=== PATIENT | female | born 1945 | race Caucasian/White ===

== ENCOUNTER 2017-10-21 08:08 | Outpatient (CLI) | payer BC ==
--- NOTE | 2017-10-21 11:00 | CT ---
NECK SOFT TISSUE WITH CONTRAST: CLINICAL HISTORY: Left parotitis, left side otalgia. FINDINGS: The parotid and submandibular glands are symmetric in appearance bilaterally. Portions of each parot id gland are obscured by prominent streak artifact from the oral cavity and dental amalgam. There is no evidence of otomastoid effusion. Imaged orbits are not acute in appearance. There is no acute f luid level within the visualized paranasal sinuses. The nasopharynx and oropharynx are patent. Epig lottis and periepiglottic space are maintaiend. No mass effect to the level of the glottis. Ther is a focal hypodensity in the right thyroid lobe, measuring approximately 11 mm in AP dimension. Asymm etric prominence of the inferior left thyroid lobe, containing a small hypodensity is seen. There is no pathologic enlargement of the regional lymph nodes. There is scattered vascular disease. Incide ntal note of granulomatous calcification. Regional skeletal structures demonstrate degenerative gamez ge. There is degenerative, grade I spondylolisthesis of C4 on 5 and mild retrolisthesis of C5-6. T here is osseous hypertorphy of the proximal body of the sternum which is chronic in appearance. IMPRESSION: 1. There is no acute abnormality. 2. Incidental findings of the thyroid gland, as above. Recommend thyroid ultrasound to further eval uate. POS: MARILYN
[2017-10-21] MEDS ORDERED: Iopamidol 370 76% 100 ML VIAL ONE (16:38)
== END 2017-10-21 08:09 | disposition home or self-care (01) ==
LOC: CT 08:08
PROVIDERS: ATTEND Otolaryngology
DX: H92.02 Otalgia, left ear (principal); R22.1 Localized swelling, mass and lump, neck; K11.21 Acute sialoadenitis
CPT/HCPCS: 36415; 70491; 82565; 84520

== ENCOUNTER 2017-10-31 15:50 | Outpatient (CLI) | payer BC | END 2017-10-31 15:51 | disposition home or self-care (01) | LOC: BICULT 15:50 | PROVIDERS: ATTEND Otolaryngology | DX: E04.1 Nontoxic single thyroid nodule (principal); E04.9 Nontoxic goiter, unspecified; E04.2 Nontoxic multinodular goiter | CPT/HCPCS: 76536 ==

== ENCOUNTER 2017-11-25 08:54 | Outpatient (CLI) | payer BC | END 2017-11-25 08:55 | disposition home or self-care (01) | LOC: BICMRI 08:54 | PROVIDERS: ATTEND Specialist | DX: M47.26 Other spondylosis with radiculopathy, lumbar region (principal); M99.83 Other biomechanical lesions of lumbar region | CPT/HCPCS: 72148 ==

== ENCOUNTER 2018-01-18 08:38 | Outpatient (CLI) | payer BC ==
--- NOTE | 2018-01-18 12:09 | MRI ---
CERVICAL SPINE MRI: 01/18/2018 HISTORY: Cervical spondylosis and myelopathy. Bilateral arm and hand numbness with pain. Bilateral cervical radiculopathy. COMPARISON: None. TECHNIQUE: Multiplanar, multisequence MR imaging of the cervical spine provided without contrast. FINDINGS: There is moderate degenerative change at the atlantoaxial interspace. The craniocervical and cervico thoracic junctions appear intact. At C4-C5, there is anterolisthesis measuring approximately 3 mm. At C5-C6, there is minimal retrolisthesis, measuring in the 2-3 mm range. Sagittal STIR imaging demo nstrates no focal area of osseous marrow edema. C2-C3: Mild facet and uncovertebral osteophyte formation with no significant central canal or neural foraminal stenosis. C3-C4: Minimal disk bulge with no central canal stenosis. No significant neural foraminal stenosis. C4-C5: There is disk space narrowing, disk desiccation, anterior osteophyte formation, and disk bulg e, with partial effacement of the ventral thecal sac and mild central canal stenosis. There is promi nent degenerative change involving the facet joint on the left with fluid within the left facet joint . There is also left uncovertebral osteophyte formation. These findings lead to prominent left neur al foraminal stenosis. No significant central canal or right neural foraminal stenosis. C5-C6: There is disk space narrowing, disk desiccation, anterior osteophyte formation, and disk bulg e, with partial effacement of the ventral thecal sac and mild central canal stenosis. There is promi nent facet and uncovertebral osteophyte formation on the left. There is mild right uncovertebral ost eophyte formation. There is mild right and moderate-severe left neural foraminal stenosis. C6-C7: There is disk space narrowing, disk desiccation, anterior osteophyte formation, and mild disk bulge. There is no significant central canal stenosis. There is bilateral facet and uncovertebral osteophyte formation, right greater than left. There is mild-moderate right neural foraminal stenosi s. No significant left neural foraminal stenosis. C7-T1: Bilateral facet hypertrophy present, left greater than right. There is mild left neural fora aaron stenosis. No significant central canal or right neural foraminal stenosis. There is no focal area of abnormal signal intensity identified within the cervical cord. IMPRESSION: Multilevel degenerative change is noted within the cervical spine, which includes significant left-si ded neural foraminal stenosis at C4-C5 and C5-C6. POS: MARILYN
--- NOTE | 2018-01-18 12:33 | MRI ---
MRI THORACIC SPINE: 01/18/2018 HISTORY: Multiple falls. Bilateral arm and hand numbness with pain. Leg weakness. TECHNIQUE: Multiplanar, multisequence MR imaging of the thoracic spine is provided without contrast. FINDINGS: The sagittal STIR imaging demonstrates no focal area of osseous marrow edema. There is significant d extroscoliosis of the thoracic spine. There is an old burst fracture involving the superior endplate of the T12 vertebral body, with mild r etropulsion, similar when compared to a chest CT performed on 08/21/2015. T1-T2: Disk space narrowing and disk desiccation. No central canal or neural foraminal stenosis. T2-T3: Disk space narrowing with no significant central canal or neural foraminal stenosis. T3-T4: Mild bilateral facet hypertrophy. Disk space narrowing and minimal disk bulge with no centra l canal or neural foraminal stenosis. T4-T5: No significant central canal or neural foraminal stenosis. T5-T6: There is a small left paracentral disk protrusion. There is no significant central canal or neural foraminal stenosis. T6-T7: Bilateral facet hypertrophy noted with mild neural foraminal stenosis on the left. There is a small left paracentral disk protrusion with no associated central canal stenosis. T7-T8: There is bilateral facet hypertrophy with mild bilateral neural foraminal stenosis, left grea ter than right. There is disk space narrowing, disk desiccation, and disk bulge, with central disk p rotrusion causing effacement of the ventral thecal sac and mild central canal stenosis. T8-T9: Disk space narrowing, desiccation, and central disk protrusion effaces the ventral thecal sac with mild central canal stenosis. There is bilateral facet hypertrophy, left greater than right, wi th moderate left neural foraminal stenosis and no significant right neural foraminal stenosis. T9-T10: Bilateral facet hypertrophy. Disk space narrowing and mild disk bulge. No significant cent ral canal stenosis. Mild bilateral neural foraminal stenosis, left greater than right. T10-T11: There is disk space narrowing and disk desiccation with bilateral facet hypertrophy, left g reater than right, and mild bilateral neural foraminal stenosis, left greater than right. T11-T12: Bilateral facet hypertrophy. Disk space narrowing, disk desiccation, and anterior osteophy te formation with no significant central canal or neural foraminal stenosis. T12-L1: No significant central canal or neural foraminal stenosis. There is no focal area of abnormal signal intensity identified within the thoracic cord. IMPRESSION: Multilevel degenerative change within the thoracic spine, as described above, most prominent at T7-T8 and T8-T9, accentuated by significant dextroscoliosis of the mid thoracic spine. POS: LILLY
== END 2018-01-18 08:39 | disposition home or self-care (01) ==
LOC: TBSIIMAG 08:38
PROVIDERS: ATTEND Neurological Surgery
DX: M47.12 Other spondylosis with myelopathy, cervical region (principal); M54.6 Pain in thoracic spine; M47.894 Other spondylosis, thoracic region; M41.9 Scoliosis, unspecified; M99.81 Other biomechanical lesions of cervical region
CPT/HCPCS: 72141; 72146

== ENCOUNTER 2018-02-21 11:07 | Outpatient (CLI) | payer BC ==
[2018-02-21 12:43] LABS: Hemoglobin 12.7 g/dL (12.0-16.0); Mean Corpuscular Hemoglobin 30.9 pg (27.0-31.0); Mean Corpuscular Volume 96.7 fl (81.0-99.0); Mean Platelet Volume 6.9 fL (7.4-10.4); Platelet Count 303 thou/uL (130-400); RBC Distribution Width 15.6 % (11.5-14.5); Red Blood Cell (RBC) Count 4.12 mill/uL (4.20-5.40); White Blood Cell (WBC) Count 11.8 thou/uL (4.8-10.8)
[2018-02-21 12:59] LABS: Anion Gap 13 mmol/L (10-20); BUN (Urea Nitrogen) 14 mg/dL (9.8-20.1); Calc. Creatinine Clearance 0 mL/min (70-130); Calcium 10.3 mg/dL (7.8-10.44); Carbon Dioxide 29 mmol/L (23-31); Chloride 100 mmol/L (98-107); Estimated GFR-MDRD 70; Glucose 141 mg/dL (80-115); Potassium 4.4 mmol/L (3.5-5.1); Sodium 138 mmol/L (136-145)
--- NOTE | 2018-02-21 23:50 | EKG ---
Test Reason : Blood Pressure : / mmHG Vent. Rate : 074 BPM Atrial Rate : 074 BPM P-R Int : 150 ms QRS Dur : 074 ms QT Int : 392 ms P-R-T Axes : 052 011 047 degrees QTc Int : 435 ms Normal sinus rhythm Normal ECG When compared with ECG of 22-OCT-2014 13:11, No significant change was found Confirmed by LIANG RUGGIERO, DR. Vera ([id number]) on 02/21/2018 11:50:19 PM Referred By: EMILE Confirmed By:DR. Jody TAVERA MD
== END 2018-02-21 11:08 | disposition home or self-care (01) ==
LOC: LABBT 11:07
PROVIDERS: ATTEND Neurological Surgery
DX: Z01.818 Encounter for other preprocedural examination (principal); M54.12 Radiculopathy, cervical region
CPT/HCPCS: 80048; 85027; 93005; 93010

== ENCOUNTER 2018-03-01 06:15 | Inpatient (IN) | payer BC, MEDICARE ==
[2018-03-01] MEDS ORDERED: Sodium Chloride 0.9% 10 ML ONE (06:24)
[2018-03-01] MEDS ORDERED: Thrombin 5000 UNITS/5 ML VIAL ONE (06:25)
[2018-03-01] MEDS ORDERED: Clindamycin/D5W 900 mg/50 ml Premix Bag ONE (07:01)
[2018-03-01] MEDS ORDERED: Levofloxacin 500 mg/D5W 100 ml Premix Bag ONE (07:02)
[2018-03-01] MEDS ORDERED: Midazolam HCl 2 mg/2 ml Vial ONE (07:15)
[2018-03-01] MEDS ORDERED: Fentanyl 100 MCG/2 ML VIAL ONE ×3 (07:47→09:21)
[2018-03-01] MEDS ORDERED: Promethazine HCl 25 MG/ML VIAL IM PRN ×2 (08:45→10:09)
[2018-03-01] MEDS ORDERED: Promethazine HCl 25 MG/ML VIAL SLOW IVP PRN (08:45)
[2018-03-01] MEDS ORDERED: Ondansetron HCl/PF 4 MG/2 ML Vial IVP PRN ×2 (08:45→10:09)
--- NOTE | 2018-03-01 09:23 | OP ---
DATE OF PROCEDURE: 03/01/2018 SURGEON: Bryan Chris M.D. NEUROCRITICAL CARE PHYSICIAN: Estephania Rascon PROCEDURE: Anterior cervical discectomy C4-5, C5-6 and C6-7, interbody arthrodesis, intravertebral b iomechanical device, local morselized autograft, demineralized bone matrix, anterior titanium instrum entation C4-C7. PROCEDURE IN DETAIL: The patient was brought to the operating room and intubated. She was positione d supine in modest extension on a gel-filled donut. Incision was made in the right precervical area and dissecting medial to the sternocleidomastoid muscle, identified the anterior cervical spine and o ur level was confirmed by x-ray. We debrided anterior osteophytes, placed distraction across the dis c spaces, and completely decompressed the intravertebral disks at each affected level. The bone was found to be extremely soft. The bony endplates were decorticated for the purpose of arthrodesis and appropriately sized intravertebral biomechanical PEEK device was brought into the field, filled with demineralized bone matrix, local morselized autograft, and tapped into place securely at C4-5, C5-6 a nd C6-7. Next, an anterior plate was brought in the field and secured to C5, C6, and C7 using two 14 mm screws at each level. The wound was then extensively irrigated, immaculate hemostasis was secure d. The wound was closed in anatomic layers over a drain.
[2018-03-01] MEDS ORDERED: traMADol HCl 50 MG TAB PO PRN ×2 (10:09)
[2018-03-01] MEDS ORDERED: diphenhydrAMINE 50 MG/ML VIAL IVP PRN (10:09)
[2018-03-01] MEDS ORDERED: Promethazine HCl 12.5 MG SUPP PR PRN (10:09)
[2018-03-01] MEDS ORDERED: Morphine 4 MG/ML Carpuject SLOW IVP PRN (10:09)
[2018-03-01] MEDS ORDERED: Mag-Al 1200 mg/1200 mg/30 ML UDCUP PO PRN (10:09)
[2018-03-01] MEDS ORDERED: Promethazine 25 MG TAB PO PRN (10:09)
[2018-03-01] MEDS ORDERED: HYDROcodone/Acetaminophen 10/325 mg Tablet PO PRN ×2 (10:09→14:29)
[2018-03-01] MEDS ORDERED: Milk Of Magnesia 30 ML UDCUP PO PRN (10:09)
[2018-03-01] MEDS ORDERED: diphenhydrAMINE 25 MG CAP PO PRN (10:09)
[2018-03-01 10:31] VITALS: BMI 32.9
[2018-03-01] MEDS: Sodium Chloride 0.9% 1,000 ML IV SCH ×2 (11:03→23:39)
[2018-03-01] MEDS: HYDROcodone/Acetaminophen 10/325 mg Tablet PO PRN ×2 (11:06→21:01)
[2018-03-01] MEDS: tiZANidine HCl 4 MG TAB PO PRN (11:08)
[2018-03-01] MEDS ORDERED: Hydrocortisone Sod Succ/PF 100 mg/2 ml Vial ONE (14:20)
[2018-03-01] MEDS ORDERED: PROPOFOL 200 MG/20 ML VIAL ONE (14:20)
[2018-03-01] MEDS ORDERED: Dexamethasone 20 MG/5 ML VIAL ONE (14:20)
[2018-03-01] MEDS ORDERED: Glycopyrrolate 0.2 MG/ML 5 ML SYRINGE ONE (14:20)
[2018-03-01] MEDS ORDERED: Ondansetron HCl/PF 4 MG/2 ML Vial ONE (14:20)
[2018-03-01] MEDS ORDERED: Lidocaine 1% PF 5 ML VIAL ONE (14:20)
[2018-03-01] MEDS: Clindamycin/D5W 900 MG in Premix Bag 1 BAG IVPB SCH ×2 (14:52→21:04)
--- NOTE | 2018-03-01 16:04 | CON ---
DATE OF CONSULTATION: 03/01/2018 PRIMARY CARE PHYSICIAN: Dr. Mike Bonilla. PRIMARY ATTENDING: Bryan Chris M.D. REASON FOR CONSULTATION: Medical comanagement. HISTORY OF PRESENT ILLNESS: A 72-year-old female who has cervical spondylolysis. She is admitted under neurosurgeon for anterior cervical foraminectomy C4-C7, which was done by Dr. Chris earlier today. Postoperatively, patient has mild neck pain and she is feeling spasm in her neck. She does have drain in place. Patient denies any UTI symptoms. She denies any chest pain, palpitation, shortness of breath. She denies any constipation, diarrhea, melena or hematochezia. She has underlying history of adrenal insufficiency and patient is taking prednisone. The patient is also taking methotrexate and Reclast injection, but patient stopped taking those medication for the last 2 weeks including Remicade. REVIEW OF SYSTEMS: The following complete review of systems was negative, unless otherwise mentioned in the HPI or below: Constitutional: Weight loss or gain, ability to conduct usual activities. Skin: Rash, itching. Eyes: Double vision, pain. ENT/Mouth: Nose bleeding, neck stiffness, pain, tenderness. Cardiovascular: Palpitations, dyspnea on exertion, orthopnea. Respiratory: Shortness of breath, wheezing, cough, hemoptysis, fever or night sweats. Gastrointestinal: Poor appetite, abdominal pain, heartburn, nausea, vomiting, constipation, or diarrhea. Genitourinary: Urgency, frequency, dysuria, nocturia. Musculoskeletal: Pain, swelling. Neurologic/Psychiatric: Anxiety, depression. Allergy/Immunologic: Skin rash, bleeding tendency. Please see my HPI for pertinent positive and negative. All other review of systems reviewed and negative except as mentioned in the HPI. PAST MEDICAL HISTORY: Adrenal insufficiency, mitral valve prolapse, diabetes type 2, hypertension, dyslipidemia, cervical spondylosis, obstructive sleep apnea on CPAP. PAST SURGICAL HISTORY: Bladder repair x2, vaginal wall repair, appendicectomy, cholecystectomy, hysterectomy, left knee replacement, bilateral shoulder surgery , right hip replacement, lumbar spine surgery, tonsillectomy, status post anterior cervical foraminectomy. PAST PSYCHIATRIC HISTORY: Anxiety and depression. SOCIAL HISTORY: Patient is and lives at home with her . No history of tobacco, alcohol or illicit drug abuse. FAMILY HISTORY: No strong family history of CAD, CVA or cancer. CURRENT HOME MEDICATIONS: Amlodipine 10 mg daily, aspirin 162 mg p.o. b.i.d., calcium carbonate 500 mg p.o. daily, clonidine 0.1 mg p.o. at bedtime, Cymbalta 60 mg p.o. at bedtime, Prozac 40 mg p.o. daily, folic acid 1 mg p.o. daily, [place] 10 one tablet q.6 hourly p.r.n., Remicade 500 mg IV as directed, Lantus insulin 20 units subcu at bedtime, magnesium oxide 250 mg daily, metformin 500 mg p.o. b.i.d., methotrexate 25 mg every week, omeprazole 20 mg p.o. daily, pravastatin 40 mg p.o. at bedtime, prednisone 20 mg p.o. daily in the morning, 10 mg in afternoon and 10 mg at bedtime, tramadol 100 mg p.o. daily, valsartan 320 mg p.o. at bedtime, and Reclast injection every week. ALLERGIES: MONOSODIUM GLUTAMATE, SULFA DRUGS, IODINE and IODINATED product. PHYSICAL EXAMINATION: VITAL SIGNS: Currently, temperature 97.6, pulse 67, respiratory rate 16, saturation 96% on 2 liters oxygen, blood pressure 147/78, 191 pounds. GENERAL: The patient is currently alert, awake, no obvious acute distress. HEAD: Normocephalic, atraumatic. EYES: Pupils round, reactive to light. Extraocular muscle intact. ENT: Oropharynx within normal limits. Moist mucous membranes. No oral lesion , no pharyngeal erythema, no exudate. NECK: Supple. Surgical site is covered with dressing, cervical drain in place. LUNGS: Clear to auscultation without any rhonchi or rales. CARDIAC: S1 and S2 regular. No murmur, no gallop, no rub. ABDOMEN: Soft, bowel sounds present, nontender, nondistended. No organomegaly , no mass, no suprapubic tenderness. BACK: Examination unremarkable, no CVA tenderness. EXTREMITIES: Upper extremity passive movement of all joints are normal. Lower extremities, no edema. Good peripheral pulsation. SKIN: No skin rash. HEMATOLOGICAL SYSTEM: No lymphadenopathy. PSYCHIATRIC: Normal affect. NEUROLOGIC: Nonfocal examination. SIGNIFICANT LABORATORY DATA: CBC: WBC 11.8, hemoglobin 12.7, platelet 303. INR 1.0. BMP: Sodium 138, potassium 4.2, chloride 100, carbon dioxide 29, BUN 14, creatinine 0.81. Glucose 141, calcium 10.3. Urinalysis unremarkable. ASSESSMENT AND PLAN/IMPRESSION: 1. Cervical spondylosis status post anterior cervical foraminectomy by Dr. Chris. Management will defer to primary team. The patient has drain, most likely drain will be removed tomorrow. PT, OT after surgery as per protocol. 2. Adrenal insufficiency. We will resume prednisone 20 mg in the morning, 10 mg in afternoon and 10 mg at bedtime as per her home dosage. 3. Diabetes type 2. Continue Levemir insulin 20 units subcu at bedtime, metformin 500 mg p.o. b.i.d., and insulin as per sliding scale protocol. Diabetic diet will be given. 4. Hypertension. If blood pressure permits, then we will continue clonidine 0.1 mg p.o. at bedtime, valsartan 320 mg p.o. at bedtime and amlodipine 10 mg daily. We will hold antihypertensive medication if her systolic blood pressure less than 130. 5. Gastroesophageal reflux disease. We will continue Protonix 40 mg p.o. daily. 6. Anxiety and depression. Continue Cymbalta 60 mg p.o. at bedtime and Prozac 40 mg p.o. daily. 7. Obstructive sleep apnea. Patient can use her home CPAP machine while in hospital. 8. Obesity with body mass index 33. Dietary education given, weight loss education given. Healthy lifestyle measures discussed with the patient. 9. Deep venous thrombosis prophylaxis, only sequential compression device boots. No Lovenox because of cervical spine surgery. 10. Gastrointestinal prophylaxis, Protonix 40 mg p.o. daily. CODE STATUS: The patient is FULL CODE. Patient's is surrogate decision maker. Disposition plan based on clinical course. Thank you for the consult. We will follow up with you while in hospital. JULIANO
[2018-03-01] MEDS: metFORMIN 500 MG TAB PO SCH (16:41)
[2018-03-01] MEDS: predniSONE 5 MG TAB PO SCH (16:42)
[2018-03-01] MEDS ORDERED: predniSONE 5 MG TAB PO SCH (21:00)
[2018-03-01] MEDS ORDERED: Insulin Glargine 20 UNITS in Pre-Filled Syringe 1 EACH SC SCH (21:00)
[2018-03-01] MEDS ORDERED: Valsartan 80 MG TAB PO SCH (21:00)
[2018-03-01] MEDS ORDERED: DULoxetine 60 MG CAP PO SCH (21:00)
[2018-03-01] MEDS ORDERED: Atorvastatin Calcium 10 MG TAB PO SCH (21:00)
[2018-03-01] MEDS ORDERED: Non-Formulary Item 1 EACH (Insulin Glargine,Hum.Rec.Anlog [Lantus Solostar] 20 UNIT) SC SCH (21:00)
[2018-03-01] MEDS ORDERED: Folic Acid 1 MG TAB PO SCH (21:00)
[2018-03-01] MEDS ORDERED: cloNIDine 0.1 MG TAB PO SCH (21:00)
[2018-03-02] MEDS ORDERED: predniSONE 20 MG TAB PO SCH (08:00)
[2018-03-02] MEDS: metFORMIN 500 MG TAB PO SCH ×2 (08:05→17:03)
[2018-03-02] MEDS ORDERED: Calcium Carbonate 500 MG ChewTAB PO SCH (09:00)
[2018-03-02] MEDS ORDERED: Amlodipine 10 MG TAB PO SCH (09:00)
[2018-03-02] MEDS ORDERED: FLUoxetine HCl 20 MG CAP PO SCH (09:00)
[2018-03-02] MEDS ORDERED: Magnesium Oxide 250 MG TAB PO SCH (09:00)
[2018-03-02] MEDS: tiZANidine HCl 4 MG TAB PO PRN ×2 (09:20→17:02)
--- NOTE | 2018-03-02 10:36 | PDOC.PN ---
- Subjective Encounter Start Date: 03/02/18 Encounter Start Time: 08:30 -: old records requested/rev Patient seen and examined. No new complaints. No overnight events - Objective Resuscitation Status: Resuscitation Status FULL:Full Resuscitation MAR Reviewed: Yes Vital Signs & Weight: Vital Signs (12 hours) Temp Pulse Resp BP BP Pulse Ox 03/02/18 08:06 63 132/79 03/02/18 07:35 98.1 F 63 18 132/79 95 03/02/18 04:07 97.6 F 68 16 144/76 H 93 L 03/01/18 23:58 98.1 F 76 20 154/85 H 97 Weight Weight 191 lb 12.835 oz I&O: 03/01/18 03/02/18 03/03/18 06:59 06:59 06:59 Intake Total 52 50 Output Total 90 Balance -38 50 Additional Labs: Accuchecks 03/02/18 03/01/18 06:21 20:51 POC Glucose 222 H 197 H Phys Exam - Physical Examination Constitutional: NAD HEENT: PERRLA, moist MMs, sclera anicteric Neck: no JVD, supple surgery site with dressing, drain in place Respiratory: no wheezing, no rales, no rhonchi Cardiovascular: RRR, no significant murmur, no rub Gastrointestinal: soft, non-tender, no distention, positive bowel sounds Musculoskeletal: no edema, pulses present Neurological: non-focal, normal sensation, moves all 4 limbs Lymphatic: no nodes Psychiatric: normal affect, A&O x 3 Skin: no rash, normal turgor Dx/Plan (1) Status post cervical discectomy Code(s): Z98.890 - OTHER SPECIFIED POSTPROCEDURAL STATES Status: Acute (2) Adrenal insufficiency ([place]'s disease) Code(s): E27.1 - PRIMARY ADRENOCORTICAL INSUFFICIENCY Status: Chronic (3) Anxiety and depression Code(s): F41.9 - ANXIETY DISORDER, UNSPECIFIED; F32.9 - MAJOR DEPRESSIVE DISORDER, SINGLE EPISODE, UNSPECIFIED Status: Chronic (4) Diabetes type 2, controlled Code(s): E11.9 - TYPE 2 DIABETES MELLITUS WITHOUT COMPLICATIONS Status: Chronic (5) Dyslipidemia Code(s): E78.5 - HYPERLIPIDEMIA, UNSPECIFIED Status: Chronic (6) GERD (gastroesophageal reflux disease) Code(s): K21.9 - GASTRO-ESOPHAGEAL REFLUX DISEASE WITHOUT ESOPHAGITIS Status: Chronic (7) Hypertension Code(s): I10 - ESSENTIAL (PRIMARY) HYPERTENSION Status: Chronic (8) CHATO on CPAP Code(s): G47.33 - OBSTRUCTIVE SLEEP APNEA (ADULT) (PEDIATRIC); Z99.89 - DEPENDENCE ON OTHER ENABLING MACHINES AND DEVICES Status: Chronic (9) Obesity (BMI 30-39.9) Code(s): E66.9 - OBESITY, UNSPECIFIED Status: Chronic - Plan cont current plan of care, PT/OT * drain will be removed today * possible discharge later today * medication reviewed as below * symptomatic treatment * medically stable * resume home medication on discharge. Review of Systems - Review of Systems Eyes: negative: Pain, Vision Change, Conjunctivae Inflammation, Eyelid Inflammation, Redness, Other ENT: negative: Ear Pain, Ear Discharge, Nose Pain, Nose Discharge, Nose Congestion, Mouth Pain, Mouth Swelling, Throat Pain, Throat Swelling, Other Respiratory: negative: Cough, Dry, Shortness of Breath, Hemoptysis, SOB with Excertion, Pleuritic Pain, Sputum, Wheezing Cardiovascular: negative: chest pain, palpitations, orthopnea, paroxysmal nocturnal dyspnea, edema, light headedness, other Gastrointestinal: negative: Nausea, Vomiting, Abdominal Pain, Diarrhea, Constipation, Melena, Hematochezia, Other Genitourinary: negative: Dysuria, Frequency, Incontinence, Hematuria, Retention , Other Musculoskeletal: negative: Neck Pain, Shoulder Pain, Arm Pain, Back Pain, Hand Pain, Leg Pain, Foot Pain, Other - Medications/Allergies Allergies/Adverse Reactions: Allergies Allergy/AdvReac Type Severity Reaction Status Date / Time monosodium glutamate Allergy Severe CAUSES Verified 02/21/18 12:01 SEVERE MIGRAINES sulfamethoxazole Allergy Severe Hives Verified 02/21/18 11:27 [From Septra] trimethoprim [From Septra] Allergy Severe Hives Verified 02/21/18 11:27 cephalexin monohydrate Allergy Intermediate Rash Verified 02/21/18 11:27 [From Keflex] Iodinated Contrast- Oral and Allergy Intermediate ITCHING, Verified 02/21/18 11: 27 IV Dye SNEEZING, [Iodinated Contrast Media - IV Dye] Medications: Current Medications Hydrocodone Bitart/Acetaminophen (Azalea 10/325) 2 tab PO Q4H PRN PRN Reason: PAIN (4-6) Last Admin: 03/01/18 21:01 Dose: 2 tab Hydrocodone Bitart/Acetaminophen (Azalea 10/325) 1 tab PO Q6H PRN PRN Reason: Mild Pain (1-3) Last Admin: 03/02/18 08:04 Dose: 1 tab Al Hydroxide/Mg Hydroxide (Maalox) 30 ml PO Q4H PRN PRN Reason: Heartburn or Indigestion Amlodipine Besylate (Norvasc) 10 mg PO DAILY [facility] Last Admin: 03/02/18 08:06 Dose: 10 mg Atorvastatin Calcium (Lipitor) 10 mg PO HS [facility] Last Admin: 03/01/18 21:02 Dose: 10 mg Calcium Carbonate (Tums) 500 mg PO DAILY [facility] Last Admin: 03/02/18 08:06 Dose: 500 mg Clonidine (Catapres) 0.1 mg PO [facility] Last Admin: 03/01/18 21:02 Dose: 0.1 mg Diphenhydramine HCl (Benadryl) 25 mg PO Q6H PRN PRN Reason: Itching Diphenhydramine HCl (Benadryl) 25 mg IVP Q6H PRN PRN Reason: Itching Duloxetine HCl (Cymbalta) 60 mg PO [facility] Last Admin: 03/01/18 21:02 Dose: 60 mg Fluoxetine HCl (Prozac) 40 mg PO DAILY [facility] Last Admin: 03/02/18 08:05 Dose: 40 mg Folic Acid (Folvite) 1 mg PO [facility] Last Admin: 03/01/18 21:03 Dose: 1 mg Sodium Chloride (Normal Saline 0.9%) 1,000 mls @ 75 mls/hr IV .[id number] [facility] Last Admin: 03/01/18 23:39 Dose: Not Given Insulin Glargine 20 units/ (Miscellaneous Medication) 0.2 mls @ 0 mls/hr SC [facility] Last Admin: 03/01/18 22:27 Dose: 0.2 mls Magnesium Hydroxide (Milk Of Magnesium) 30 ml PO Q12H PRN PRN Reason: Constipation Magnesium Oxide (Magnesium Oxide) 250 mg PO DAILY [facility] Last Admin: 03/02/18 08:06 Dose: 250 mg Metformin HCl (Glucophage) 500 mg PO BID[facility] Last Admin: 03/02/18 08:05 Dose: 500 mg Morphine Sulfate (Morphine) 2 mg SLOW IVP Q1H PRN PRN Reason: Moderate Breakthrough Pain Morphine Sulfate (Morphine) 4 mg SLOW IVP Q1H PRN PRN Reason: Severe Breakthrough Pain Ondansetron HCl (Zofran) 4 mg IVP Q24H PRN PRN Reason: Nausea/Vomiting Pantoprazole Sodium (Protonix) 40 mg PO DAILY [facility] Last Admin: 03/02/18 08:06 Dose: 40 mg Prednisone (Prednisone) 20 mg PO QAM-WM [facility] Last Admin: 03/02/18 08:06 Dose: 20 mg Prednisone (Prednisone) 10 mg PO 1600 [facility] Last Admin: 03/01/18 16:42 Dose: 10 mg Prednisone (Prednisone) 10 mg PO HS [facility] Last Admin: 03/01/18 21:03 Dose: 10 mg Promethazine HCl (Phenergan) 12.5 mg IM Q4H PRN PRN Reason: Nausea/Vomiting Promethazine HCl (Phenergan) 12.5 mg PO Q4H PRN PRN Reason: Nausea/Vomiting Promethazine HCl (Phenergan Suppository) 12.5 mg [place] Q4H PRN PRN Reason: Nausea/Vomiting Sodium Chloride (Flush - Normal Saline) 10 ml IVF Q12HR [facility] Last Admin: 03/02/18 08:07 Dose: 10 ml Sodium Chloride (Flush - Normal Saline) 10 ml IVF PRN PRN PRN Reason: Saline Flush Tizanidine HCl (Zanaflex) 4 mg PO Q6H PRN PRN Reason: MUSCLE SPASM Last Admin: 03/02/18 09:20 Dose: 4 mg Tramadol HCl (Ultram) 50 mg PO Q6H PRN PRN Reason: PAIN (1-3) Tramadol HCl (Ultram) 100 mg PO Q6H PRN PRN Reason: PAIN (4-6) Valsartan (Diovan) 320 mg PO HS [facility] Last Admin: 03/01/18 21:03 Dose: 320 mg
[2018-03-02] MEDS: HYDROcodone/Acetaminophen 10/325 mg Tablet PO PRN ×2 (12:09→17:02)
[2018-03-02] MEDS: Sodium Chloride 0.9% 1,000 ML IV SCH (12:12)
--- NOTE | 2018-03-02 12:43 | DIS ---
PRIMARY CARE PHYSICIAN: Dr. Mike Bonilla. PRIMARY ATTENDING: Bryan Chris M.D. DATE OF ADMISSION: 03/01/2018 DATE OF DISCHARGE: 03/02/2018 DISCHARGE DISPOSITION: Home. PRIMARY DISCHARGE DIAGNOSIS: Anterior cervical discectomy. SECONDARY DISCHARGE DIAGNOSES: Chronic adrenal insufficiency, anxiety and depression, diabetes type 2, gastroesophageal reflux disease, hypertension, obesity with body mass index 33, obstructive sleep apnea on CPAP. PRIMARY PROCEDURE/OPERATION: Anterior cervical discectomy C4-5, C5-6, C6-7. RADIOLOGICAL INVESTIGATION: None. SIGNIFICANT LABORATORIES: [facility] 111, 197, 222, 192. DISCHARGE MEDICATIONS: Amlodipine 10 mg p.o. daily, calcium carbonate 500 mg p.o. daily, clonidine 0 .1 mg p.o. at bedtime, Cymbalta 60 mg p.o. at bedtime, Prozac 40 mg p.o. daily, folic acid 1 mg p.o. at bedtime, [place] 10 one or two tablets q.6 hourly p.r.n., Remicade 500 mg IV as directed, Lantus 20 units subq at bedtime, magnesium oxide 250 mg p.o. daily, metformin 500 mg p.o. b.i.d., methotrexate 25 mg q.7 days, omeprazole 20 mg p.o. daily, pravastatin 40 mg p.o. at bedtime, prednisone 20 mg in t he morning, 10 mg in afternoon and 10 mg at bedtime, Zanaflex 4 mg q.i.d. p.r.n., tramadol 100 mg p.o . daily, valsartan 320 mg p.o. at bedtime, Ocuvite 2 tablets p.o. daily, Reclast intravenous every mo nth. CONTRAINDICATIONS: None. CODE STATUS: FULL CODE. INPATIENT CONSULTANTS: Dr. Chris was primary. [facility] team was consulted for medical comanagement. TEST RESULTS PENDING ON DISCHARGE: None. ALLERGIES: MONOSODIUM GLUTAMATE, SULFA DRUGS. DISCHARGE PLAN: Post hospital, the patient will follow up with primary care physician as well as Dr. Chris as instructed. HOSPITAL COURSE: A 72-year-old female with above-mentioned medical problem who was electively admitt ed by Dr. Chris for anterior cervical discectomy which was done yesterday without any complication . Patient had a drain at surgical site after surgery. At the surgical floor, [facility] team was consult ed for medical comanagement. We resumed patient's home medication. Patient did very well while in h ospital. She was tolerating p.o. well and she did not have any further problem. Patient will contin ue all her previous medication except aspirin and that can be restarted when neurosurgeon is okay. Patient is seen and examined at bedside today. Please see my consult note for more detail.
[2018-03-02] MEDS: predniSONE 5 MG TAB PO SCH (16:50)
[2018-03-02 17:18] VITALS: BP 146/76; TEMP 98.5
== END 2018-03-02 18:06 | disposition home or self-care (01) | DRG 472 ==
LOC: SDC 06:15 → SURG B 09:10 → OBSVTOIN 09:10 → EDSTATUS 11:15
PROVIDERS: ADMIT Neurological Surgery; ATTEND Neurological Surgery
PROC: 0RG20A0 Fusion of 2 or more Cervical Vertebral Joints with Interbody Fusion Device, Anterior Approach, Anterior Column, Open Approach (ICD-10-PCS; principal; 2018-03-01)
PROC: 0RT30ZZ Resection of Cervical Vertebral Disc, Open Approach (ICD-10-PCS; 2018-03-01)
DX: M47.9 Spondylosis, unspecified (principal); E27.49 Other adrenocortical insufficiency; M54.12 Radiculopathy, cervical region; E11.9 Type 2 diabetes mellitus without complications; G47.33 Obstructive sleep apnea (adult) (pediatric); E66.9 Obesity, unspecified; I34.1 Nonrheumatic mitral (valve) prolapse; K21.9 Gastro-esophageal reflux disease without esophagitis; E78.5 Hyperlipidemia, unspecified; Z68.33 Body mass index [BMI] 33.0-33.9, adult; Z79.899 Other long term (current) drug therapy; Z79.82 Long term (current) use of aspirin; Z79.891 Long term (current) use of opiate analgesic; Z88.8 Allergy status to other drugs, medicaments and biological substances; Z88.2 Allergy status to sulfonamides; Z91.048 Other nonmedicinal substance allergy status; F41.9 Anxiety disorder, unspecified; F32.9 Major depressive disorder, single episode, unspecified
CPT/HCPCS: 36416; 76001; A4216; C1713; C1776; G8978-GP-CJ; G8979-GP-CJ; G8980-GP-CJ; J1100; J1720; J1956; J2001; J2250; J2405; J2704; J3010; J3490; J7506

== ENCOUNTER 2018-03-15 10:40 | Outpatient (CLI) | payer BC ==
--- NOTE | 2018-03-15 11:43 | RAD ---
CERVICAL SPINE SERIES 3 VIEWS: HISTORY: Followup surgery. COMPARISON: Most recent exam available, which was an MRI done 01/18/18, which was before surgery. FINDINGS: The bones are demineralized. The vertebral bodies are normal in height. Anterior cervical fusion ac s been performed with placement of a plate and screws extending from C4 to C7. There are markers of intervening disk implants which are within the confines of the disk level. There is a prominent gap between the plate and anterior margin of the C4 vertebral body of approximately 8 mm. The gap betwee n the posterior margin of the plate and C5 is approximately 6-7 mm. Degenerative facet changes are p resent. IMPRESSION: The patient is status post anterior cervical fusion with findings as discussed above. POS: [facility]
== END 2018-03-15 10:41 | disposition home or self-care (01) ==
LOC: TBSIIMAG 10:40
PROVIDERS: ATTEND Physician Assistant
DX: M47.812 Spondylosis without myelopathy or radiculopathy, cervical region (principal); Z98.1 Arthrodesis status
CPT/HCPCS: 72040

== ENCOUNTER 2018-04-06 14:10 | Outpatient (CLI) | payer BC | END 2018-04-06 14:11 | disposition home or self-care (01) | LOC: BICMAMMO 14:10 | PROVIDERS: ATTEND Obstetrics & Gynecology | DX: Z12.31 Encounter for screening mammogram for malignant neoplasm of breast (principal); Z80.3 Family history of malignant neoplasm of breast | CPT/HCPCS: 77063; 77067 ==

== ENCOUNTER 2018-05-08 15:07 | Outpatient (CLI) | payer BC ==
--- NOTE | 2018-05-08 17:11 | RAD ---
CERVICAL SPINE THREE VIEWS: History: Neck surgery. Follow up. Comparison: 03-15-18 FINDINGS: Anterior fixation plate at the C4-5-6-7 levels again demonstrated. Anterior displacement of the compr ession plate from the anterior margin of the vertebral bodies, up to 0.8 cm, is similar to the previo us exam. There is disc space narrowing and osteophytosis throughout the vertebral bodies and facets. Metallic markers associated with anterior body fusion material at the post-operative levels remain wi thin the confines of the disc spaces. Osseous structures are demineralized. IMPRESSION: Anterior displacement of the cervical spine fixation plate is stable compared to the 03-15-18 exam. POS: [facility]
== END 2018-05-08 15:08 | disposition home or self-care (01) ==
LOC: TBSIIMAG 15:07
PROVIDERS: ATTEND Neurological Surgery
DX: M48.02 Spinal stenosis, cervical region (principal); M50.20 Other cervical disc displacement, unspecified cervical region
CPT/HCPCS: 72040

== ENCOUNTER 2018-05-29 08:50 | Day surgery (SDC) | payer BC ==
[2018-05-26 12:34] VITALS: BMI 30.7
[2018-05-29] MEDS ORDERED: Clindamycin/D5W 900 mg/50 ml Premix Bag ONE (09:53)
[2018-05-29] MEDS ORDERED: Levofloxacin 500 mg/D5W 100 ml Premix Bag ONE (09:53)
[2018-05-29 10:04] LABS: #Eosinphils 0.4 thou/uL (0.0-0.7); #Monocytes 0.8 thou/uL (0.11-0.59); #Neutrophils 9.4 thou/uL (1.40-6.50); %Basophils 0.1 % (0.0-1.0); %Eosinophils 2.9 % (0.0-10.0); %Lymphocytes 15.7 % (21.0-51.0); %Neutrophils 75.3 % (42.0-75.0); Hemoglobin 12.4 g/dL (12.0-16.0); Mean Corpuscular HGB CONC 33.2 g/dL (32.0-36.0); Mean Corpuscular Hemoglobin 29.6 pg (27.0-31.0); Mean Platelet Volume 6.7 fL (7.4-10.4); Platelet Count 287 thou/uL (130-400); RBC Distribution Width 15.4 % (11.5-14.5); Red Blood Cell (RBC) Count 4.19 mill/uL (4.20-5.40); White Blood Cell (WBC) Count 12.5 thou/uL (4.8-10.8)
[2018-05-29] MEDS ORDERED: Hydrocortisone Sod Succ/PF 100 mg/2 ml Vial IVP SCH (10:15)
[2018-05-29 10:27] LABS: Anion Gap 15 mmol/L (10-20); BUN (Urea Nitrogen) 20 mg/dL (9.8-20.1); Calc. Creatinine Clearance 82 mL/min (70-130); Calcium 9.7 mg/dL (7.8-10.44); Carbon Dioxide 26 mmol/L (23-31); Chloride 102 mmol/L (98-107); Estimated GFR-MDRD 66; Glucose 100 mg/dL (80-115); Potassium 3.5 mmol/L (3.5-5.1); Sodium 139 mmol/L (136-145)
[2018-05-29] MEDS ORDERED: Fentanyl 250 MCG/5 ML VIAL ONE (11:47)
[2018-05-29] MEDS ORDERED: Hydrocortisone Sod Succ/PF 100 mg/2 ml Vial ONE (12:01)
--- NOTE | 2018-05-29 13:03 | OP ---
DATE OF PROCEDURE: 05/29/2018 SURGEON: Bryan Chris M.D. UX SPECIALIST: Samantha Porras PA-C PROCEDURE PERFORMED: Left L5 foraminotomy. PROCEDURE IN DETAIL: The patient was brought to the operating room and intubated. She was rolled in the prone position on gel-filled chest rolls. Incision was made exposing left L5 and S1 and our lev el was confirmed by x-ray. We performed complete left L5-S1 facetectomy and performed a complete lef t L5 foraminotomy decompressing left L5 nerve root. The wound was extensively irrigated, immaculate hemostasis was secured. Vancomycin powder was applied and the wound was closed in anatomic layers.
[2018-05-29] MEDS ORDERED: Fentanyl 100 MCG/2 ML VIAL ONE ×2 (13:25→13:51)
[2018-05-29] MEDS ORDERED: Morphine 4 MG/ML VIAL ONE ×2 (13:31→13:47)
[2018-05-29] MEDS ORDERED: HYDROcodone/Acetaminophen 5/325 mg Tablet ONE (14:30)
--- NOTE | 2018-05-29 16:03 | EKG ---
Test Reason : PREOP Blood Pressure : / mmHG Vent. Rate : 072 BPM Atrial Rate : 072 BPM P-R Int : 154 ms QRS Dur : 078 ms QT Int : 402 ms P-R-T Axes : 090 006 032 degrees QTc Int : 440 ms Normal sinus rhythm Normal ECG Confirmed by ROCKY MCPHERSON ([id number]) on 05/29/2018 4:02:59 PM Referred By: EMILE Confirmed By:ROCKY MCPHERSON
== END 2018-05-29 16:20 | disposition home or self-care (01) ==
LOC: SDC 08:50
PROVIDERS: ATTEND Neurological Surgery
PROC: 01NB0ZZ Release Lumbar Nerve, Open Approach (ICD-10-PCS; principal; 2018-05-29)
DX: M48.061 Spinal stenosis, lumbar region without neurogenic claudication (principal); E11.9 Type 2 diabetes mellitus without complications; L40.50 Arthropathic psoriasis, unspecified; Z88.2 Allergy status to sulfonamides; Z88.8 Allergy status to other drugs, medicaments and biological substances; Z91.041 Radiographic dye allergy status; Z79.82 Long term (current) use of aspirin; Z79.899 Other long term (current) drug therapy
CPT/HCPCS: 76001; 80048; 85025; 93005; 93010; 96374; 96375; J1720; J1956; J2270; J3010; J3370; J3490

== ENCOUNTER 2018-08-16 16:06 | Outpatient (CLI) | payer BC ==
--- NOTE | 2018-08-16 18:27 | RAD ---
TWO VIEWS LUMBOSACRAL SPINE: 08/16/18 COMPARISON: Prior exam dated 08/01/18. FINDINGS: There is levoscoliosis of the lumbar spine centered at L3-4. There is slight worsening of the moderat e compression abnormality involving L1 when compared to the prior dated 08/01/18. The mild wedge comp ression abnormality of T12 is stable. There is slight retrolisthesis of L1 on L2 which is stable. Moderate disc degenerative disease at L2- 3 and L5-S1 is stable. Severe multilevel facet osteoarthritic changes are stable. There are bilateral total hip replacement. There are surgical clips within the right upper quadrant consistent with chol ecystectomy. IMPRESSION: 1. Slight worsening loss of height of the moderate to severe compression abnormality at L1. Mild wedge compression abnormality of T12 is stable. 2. Stable severe multilevel spondylosis of lumbar spine. POS: [facility]
--- NOTE | 2018-08-16 18:30 | RAD ---
THORACIC SPINE THREE VIEWS: 08/16/18 HISTORY: Compression fracture. Followup. COMPARISON: 08/01/18. FINDINGS: There are twelve thoracic type vertebrae. Pedicles are intact. Prominent rightward convex rotatory sc oliotic curvature. Compression of the right side of the T12 superior end plate is similar in appearan ce to the previous exam, with loss of height by approximately 15%. L1 compression is also partially v isualized and better detailed on dedicated lumbar spine radiograph. IMPRESSION: 1. Stable radiographic appearance of the T12 superior end plate compression. 2. Prominent degenerative changes thoracic spine. POS: [facility]
== END 2018-08-16 16:07 | disposition home or self-care (01) ==
LOC: TBSIIMAG 16:06
PROVIDERS: ATTEND Neurological Surgery
DX: S22.080D Wedge compression fracture of T11-T12 vertebra, subsequent encounter for fracture with routine healing (principal); M48.56XD Collapsed vertebra, not elsewhere classified, lumbar region, subsequent encounter for fracture with routine healing; M47.814 Spondylosis without myelopathy or radiculopathy, thoracic region; M47.816 Spondylosis without myelopathy or radiculopathy, lumbar region
CPT/HCPCS: 72072; 72100

== ENCOUNTER 2018-09-14 16:12 | Outpatient (CLI) | payer BC ==
--- NOTE | 2018-09-14 16:41 | RAD ---
LUMBAR SPINE 2 VIEWS: Date: 09/14/18 HISTORY: Lumbar spine fracture. COMPARISON: 08/16/18. FINDINGS: Leftward convex curvature is again demonstrated. Pedicles are intact. Burst fracture of L1 is similar in appearance to the previous exam. Disc space narrowing and minimal retrolisthesis of the L2-3 leve l is stable. Osseous structures are demineralized. Osteophytes throughout the facets. IMPRESSION: Stable radiographic appearance of the L2 burst fracture. POS: [facility]
== END 2018-09-14 16:13 | disposition home or self-care (01) ==
LOC: TBSIIMAG 16:12
PROVIDERS: ATTEND Neurological Surgery
DX: S32.021A Stable burst fracture of second lumbar vertebra, initial encounter for closed fracture (principal); M54.5 Low back pain
CPT/HCPCS: 72100

== ENCOUNTER 2018-10-19 15:08 | Outpatient (CLI) | payer BC ==
--- NOTE | 2018-10-19 16:07 | RAD ---
LUMBAR SPINE RADIOGRAPH SERIES TWO TO THREE VIEWS: 10/19/18 INDICATION: S22.0008A. History of vertebral fracture related to fall. COMPARISON: 09/14/18 and 08/16/18 radiograph. FINDINGS: There is prominent S-shaped curvature of the imaged thoracolumbar spine. Multilevel degenerative gamez ge is demonstrated. There is severe height loss of L1 related to anterior compression and mild superi or end plate height loss of T12. When referencing 09/14/18 radiographs, height loss is grossly stable . There is osseous demineralization. No additional significant interval detrimental change. IMPRESSION: Redemonstration of T12 and L1 compression deformities, grossly stable. POS: [facility]
--- NOTE | 2018-10-19 16:36 | RAD ---
CERVICAL SPINE 4 VIEWS: Date: 10/19/17 HISTORY: Neck pain. Prior surgery. COMPARISON: 05/08/18. FINDINGS: Anterior fixation plate of the C4-5-6-7 levels again demonstrated. The space between the anterior asp ect of the involved vertebral bodies and the posterior aspect of the metallic plate is similar in jason earance to the prior study. Metallic markers associated with interbody fusion material at the postope rative levels are within the confines of the disc spaces. Vertebral body heights and alignment are ma intained. Disc space narrowing and osteophytosis is again demonstrated. Osseous structures are demineralized. IMPRESSION: Anterior displacement of the cervical spine fixation plate is stable compared to the previous exams. POS: [facility]
== END 2018-10-19 15:09 | disposition home or self-care (01) ==
LOC: TBSIIMAG 15:08
PROVIDERS: ATTEND Neurological Surgery
DX: S22.008A Other fracture of unspecified thoracic vertebra, initial encounter for closed fracture (principal); M48.56XA Collapsed vertebra, not elsewhere classified, lumbar region, initial encounter for fracture; T84.428A Displacement of other internal orthopedic devices, implants and grafts, initial encounter; M43.8X6 Other specified deforming dorsopathies, lumbar region; M43.8X4 Other specified deforming dorsopathies, thoracic region
CPT/HCPCS: 72040; 72100

== ENCOUNTER 2018-11-17 14:11 | Outpatient (CLI) | payer BC ==
--- NOTE | 2018-11-17 15:44 | MRI ---
MRI OF THE LUMBAR SPINE WITHOUT CONTRAST: 11/17/18 HISTORY: S32.010A - wedge compression fracture first lumbar vertebra. COMPARISON: Lumbar spine from 2007 and lumbar spine radiographs 10/19/18. FINDINGS: The aortic contour is nonaneurysmal. Multiple bilateral renal parapelvic cysts. Mild paraspinal muscu lar atrophy. There is a complete burst fracture of L1 with complete mid vertebral body height loss, 40% anterior height loss, as well as retropulsion of the posterior superior end plates of vertebral b gardenia, reduced spinal canal and approximately 5 mm narrowing of the spinal canal to approximately 8 mm. There is some edema within the vertebral fracture. The height loss is similar to the 10/19/18 radiogr aph. There is also height loss of the T12 anterior superior end plate approximately 15-20%, unchanged . No other fracture is appreciated. Some low grade edema within the right T11 pedicle. This may be st ress related. Levels are as follows: T12-L1: There is effacement of the ventral CSF space due to posterior superior displacement of the fr acture fragment. No significant neural foraminal narrowing. L1-2: Low grade circumferential disc bulge. Mild facet arthropathy. No neural foraminal or spinal can al narrowing. L2-3: Severe degenerative disc space height loss. Circumferential disc bulge. Moderate facet arthrosi s. There is moderate to severe left and moderate right sided neural foraminal narrowing with abutment of the exiting left exiting and traversing nerve roots. Spinal canal measures 9 mm. L3-4: There is a broad based posterior disc bulge. Moderate facet arthrosis. Moderate bilateral neura l foraminal narrowing. L4-5: There is a low grade broad based posterior disc protrusion with a central annular fissure. Mode rate facet arthropathy. Moderate bilateral neural foraminal narrowing. L5-S1: There is a broad based posterior disc protrusion extending to both subforaminal zones. There is hypertrophic facet changes, severe on the left and moderate on the right. Severe left sided neural foraminal narrowing and moderate right sided neural foraminal narrowing with abutment of the left ex iting and traversing nerve roots. IMPRESSION: 1. Advanced multilevel spondylosis as described. 2. Similar height loss of the burst fracture of L1 with retropulsion which is partially healed. 3. There is mild edema within the left T10 pedicle. May be stress related. 4. Chronic anterior superior height loss of T12. 5. Apparent scar along the spinous processes of L4 and L5. POS: [facility]
--- NOTE | 2018-11-17 16:01 | MRI ---
NONCONTRAST MRI OF THE THORACIC SPINE 11/17/18 HISTORY: Wedge compression fracture of T11 and T12. COMPARISON: 01/18/18 FINDINGS: There have been interval postsurgical changes of the cervical spine related to anterior cervical fusi on of C4 through C7. Disc osteophyte complexes are present at these levels which narrow the ventral s ubarachnoid space and appear to result in slight flattening of the anterior aspect of the spinal cord at these levels. Normal signal intensity is demonstrated in the bone marrow. There is a remote burst fracture involvin g the superior end plate of the T12 vertebral body. The burst fracture of the L1 vertebral body is no t well visualized on this exam and is better visualized on MRI of the lumbar spine also obtained on t his date, please see that exam for further details. No additional compression fracture seen involving the thoracic spine. T1-2 level: There is mild disc osteophyte complex resulting in slight effacement of the ventral aspec t of the ventral subarachnoid space. Neural foramina are patent. T2-3 level: There is no significant disc bulge or disc herniation. Central spinal canal and neural fo ramina are patent. T3-4 level: There is mild loss of intervertebral disc height. There is a mild disc osteophyte complex with central disc protrusion. There is slight effacement of the ventral subarachnoid space. Mild enc roachment on the anterior aspect of the spinal cord. Neural foramina are patent. T4-5 level: There is no disc bulge or disc herniation. Central spinal canal and neural foraminal are patent. T5-6 level: Again noted is a small left paracentral disc protrusion at this level which results. Centeno esthela, the central spinal canal and neural foramina are patent. T6-7 level: There is a mild disc osteophyte complex present with small left paracentral disc protrusi on again noted. There is resultant mass effect in the left anterolateral aspect of the ventral subara chnoid space. There is mild narrowing of each neural foramen. T7-8 level: There is loss of intervertebral disc height with facet hypertrophic changes. There is a broad based disc osteophyte complex present. The findings result in mild bilateral neural foraminal n arrowing and there is narrowing of the ventral subarachnoid space with slight mass effect on the ante rior aspect of the spinal cord, but there is normal signal intensity in the spinal cord. This is stab le from prior exam. T8-9 level: Again, there is a disc osteophyte complex with central disc protrusion. This results in n arrowing of the ventral subarachnoid space and flattening of the anterior aspect of the spinal cord, but there is normal signal intensity in the spinal cord. Facet degenerative changes are present and the right neural foramen is patent, but there is suggestion of moderate to severe left sided neural f oraminal narrowing. T9-10 level: There is a mild disc osteophyte complex resulting in slight effacement of the ventral dillon barachnoid space. There are facet hypertrophic changes which do result in mass effect on the left pos terolateral aspect of the subarachnoid space with encroachment on the spinal cord. The right neural f oramen is patent, but there is mild right and moderate to severe left sided neural foraminal narrowi ng. T10-11 level: There are facet hypertrophic changes. There is a disc osteophyte complex present. There is mild narrowing of the central spinal canal. There is moderate left and mild right sided neural fo raminal narrowing. T11-12 level: There is retropulsion of the posterior superior end plate of T12 vertebral body with di sc osteophyte complex present at this level. There are facet degenerative changes. There is narrowing of the ventral subarachnoid space due to retropulsion of fracture fragments. However, there is proba ang mild left sided neural foraminal narrowing. The right neural foramen is patent. There is mild nicky rowing of the central spinal canal. T12-L1 level: There is retropulsion of fracture fragments involving the burst fracture of the L1 vert ebral body which narrows the ventral subarachnoid space. Again, this level is incompletely imaged. Th ere is suggestion of bilateral neural foraminal narrowing, again, please MRI lumbar spine for further details. There is left convexed scoliosis of the lower thoracic spine. IMPRESSION: 1. Stable multilevel degenerative changes in the thoracic spine as described above, greatest at the T7-8 and T8-9 levels with associated dextroscoliosis of the mid to lower thoracic spine. 2. Stable burst fractures involving the T12 and L1 vertebral bodies. POS: [facility]
== END 2018-11-17 14:12 | disposition home or self-care (01) ==
LOC: TBSIIMAG 14:11
PROVIDERS: ATTEND Specialist
DX: S32.010A Wedge compression fracture of first lumbar vertebra, initial encounter for closed fracture (principal); S22.080A Wedge compression fracture of T11-T12 vertebra, initial encounter for closed fracture; M80.88XA Other osteoporosis with current pathological fracture, vertebra(e), initial encounter for fracture; M47.814 Spondylosis without myelopathy or radiculopathy, thoracic region; M41.9 Scoliosis, unspecified; S22.081A Stable burst fracture of T11-T12 vertebra, initial encounter for closed fracture; S32.011A Stable burst fracture of first lumbar vertebra, initial encounter for closed fracture; R60.0 Localized edema; M47.816 Spondylosis without myelopathy or radiculopathy, lumbar region
CPT/HCPCS: 72146; 72148

== ENCOUNTER 2019-02-08 11:39 | Outpatient (CLI) | payer BC ==
--- NOTE | 2019-02-08 12:19 | RAD ---
Exam: 3 views of the lumbosacral spine HISTORY: Wedge compression fracture of L1 COMPARISON: Prior exam dated October 19, 2018 FINDINGS: There are five lumbar type vertebra. There is stable compression abnormalities involving T12 and L1. The moderate to severe multilevel spondylosis of the lumbar spine is stable. Levoscoliosis is stable. There is diffuse osteopenia. There is postsurgical change of a left total hip replacement and cholecystectomy change. IMPRESSION: Stable compression abnormalities at T12 and L1. Stable spondylosis of the lumbar spine.
--- NOTE | 2019-02-08 12:26 | RAD ---
THORACIC SPINE 3 VIEWS: Date: 02/08/19 HISTORY: Wedge compression fracture of T11 and T12. COMPARISON: 08/16/18, lumbar spine 08/16/18. FINDINGS: Stable S-shaped scoliosis of the thoracic vertebral column. Burst fracture of L1 with considerable ve rtical height loss, stable. Mild vertical height loss of T12, stable. Bony demineralization. IMPRESSION: Stable fractures of L1 and T12. Stable scoliosis. POS: [facility]
== END 2019-02-08 11:40 | disposition home or self-care (01) ==
LOC: RAD 11:39
PROVIDERS: ATTEND Nurse Practitioner Family
DX: S32.010D Wedge compression fracture of first lumbar vertebra, subsequent encounter for fracture with routine healing (principal); S22.080D Wedge compression fracture of T11-T12 vertebra, subsequent encounter for fracture with routine healing; M41.9 Scoliosis, unspecified; M47.816 Spondylosis without myelopathy or radiculopathy, lumbar region
CPT/HCPCS: 72072; 72100

== ENCOUNTER 2019-05-21 13:10 | Outpatient (CLI) | payer BC ==
--- NOTE | 2019-05-21 16:27 | BD ---
DEXA BONE DENSITY SCAN: 05/21/2019 HISTORY: Postmenopausal female undergoing screening for osteoporosis. BMD (g/cm2) T-SCORE DISTAL THIRD LEFT FOREARM: 0.363 -1.4 MIDDLE THIRD DISTAL LEFT FOREARM: 0.450 -2.9 PROXIMAL THIRD DISTAL LEFT FOREARM: 0.610 -1.4 TOTAL DISTAL LEFT FOREARM: 0.456 -2.3 DISTAL THIRD RIGHT FOREARM: 0.363 -1.4 MIDDLE THIRD RIGHT FOREARM: 0.526 -1.4 PROXIMAL THIRD RIGHT FOREARM: 0.659 -0.6 TOTAL RIGHT FOREARM: 0.504 -1.4 IMPRESSION: There is osteopenia within the left forearm, correlating with a moderately increased risk for fractur e. Transcribed Date/Time: 05/21/2019 4:40 PM
--- NOTE | 2019-05-22 06:48 | MMO ---
Bilateral MAMMO Bilat Screen [facility]. CLINICAL HISTORY: Patient is 73 years old and is seen for screening. The patient has no family history of breast cancer. The patient has a history of bilateral Excisional Biopsy in 1974 - 1999 - Patient has had 13 biopsies on both breasts. Pre- and bilateral Mastectomy in 1987 - Patient has had partial bilateral mastectomies/lum. VIEWS: The views performed were: bilateral craniocaudal with tomosynthesis and bilateral mediolateral oblique with tomosynthesis. FILMS COMPARED: The present examination has been compared to prior imaging studies performed at [facility] on 03/13/2015, 03/16/2016, 03/17/2017 and 04/06/2018. MAMMOGRAM FINDINGS: There are scattered fibroglandular densities. There are stable benign appearing calcifications seen in both breasts. There are no suspicious masses, suspicious calcifications, or new areas of architectural distortion. IMPRESSION: THERE IS NO MAMMOGRAPHIC EVIDENCE OF MALIGNANCY. A ROUTINE FOLLOW-UP MAMMOGRAM IN 1 YEAR IS RECOMMENDED. THE RESULTS OF THIS EXAM WERE SENT TO THE PATIENT. ACR BI-RADS Category 2 - Benign finding MAMMOGRAPHY NOTE: 1. A negative mammogram report should not delay a biopsy if a dominant of clinically suspicious mass is present. 2. Approximately 10% to 15% of breast cancers are not detected by mammography. 3. Adenosis and dense breasts may obscure an underlying neoplasm. Reported by: HAYLEY MEDINA MD Electonically Signed: [id number]
== END 2019-05-21 13:11 | disposition home or self-care (01) ==
LOC: BICMAMMO 13:10
PROVIDERS: ATTEND Obstetrics & Gynecology
DX: Z12.31 Encounter for screening mammogram for malignant neoplasm of breast (principal); Z13.820 Encounter for screening for osteoporosis; M85.852 Other specified disorders of bone density and structure, left thigh; Z90.13 Acquired absence of bilateral breasts and nipples
CPT/HCPCS: 77063; 77067; 77080

== ENCOUNTER 2019-08-15 16:15 | Emergency (ER) | payer BC, MEDICARE ==
[~2019-08-15 16:15] MED LIST: Iopamidol-370 76% 500 ML 1 ML ONE
[2019-08-15] MEDS ORDERED: methylPREDNISolone Sod Succ/PF 125 MG/2 ML VIAL ONE (16:42)
[2019-08-15] MEDS ORDERED: Famotidine/PF 20 mg/2ml Vial ONE (16:42)
[2019-08-15] MEDS ORDERED: diphenhydrAMINE 50 MG/ML VIAL ONE (16:42)
[2019-08-15 17:08] LABS: #Eosinphils 0.1 thou/uL (0.0-0.7); #Neutrophils 15.4 thou/uL (1.40-6.50); %Basophils 0.1 % (0.0-1.0); %Eosinophils 0.7 % (0.0-10.0); %Lymphocytes 10.8 % (21.0-51.0); %Monocytes 5.5 % (0.0-10.0); Hemoglobin 12.6 g/dL (12.0-16.0); Mean Corpuscular HGB CONC 32.8 g/dL (32.0-36.0); Mean Corpuscular Hemoglobin 29.9 pg (27.0-31.0); Mean Corpuscular Volume 91.1 fL (78.0-98.0); Mean Platelet Volume 7.4 fL (7.4-10.4); Platelet Count 381 thou/uL (130-400); RBC Distribution Width 15.9 % (11.5-14.5); Red Blood Cell (RBC) Count 4.22 mill/uL (4.20-5.40); White Blood Cell (WBC) Count 18.5 thou/uL (4.8-10.8)
[2019-08-15 17:32] LABS: ALT (SGPT) 16 U/L (8-55); AST (SGOT) 11 U/L (5-34); Albumin 3.8 g/dL (3.4-4.8); Alkaline Phosphatase 86 U/L (40-110); Anion Gap 13 mmol/L (10-20); BUN (Urea Nitrogen) 22 mg/dL (9.8-20.1); Bilirubin, Total 0.5 mg/dL (0.2-1.2); Calc. Creatinine Clearance 0 mL/min (70-130); Carbon Dioxide 28 mmol/L (23-31); Chloride 96 mmol/L (98-107); Estimated GFR-MDRD 56; Globulin 2.6 g/dL (2.4-3.5); Glucose 297 mg/dL (83-110); Potassium 3.7 mmol/L (3.5-5.1); Protein, Total 6.4 g/dL (6.0-8.3); Sodium 133 mmol/L (136-145)
--- NOTE | 2019-08-15 18:05 | CT ---
CT arteriogram chest with IV contrast and 3-D imaging HISTORY: Dyspnea. Chest pain. COMPARISON: 08/21/2015. FINDINGS: There is good contrast opacification pulmonary arteries and thoracic aorta with normal bran kev of the great vessels at the aortic arch. Calcification within the coronary arteries. Old healed left anterior rib fractures. Prominent S shaped curvature of the thoracolumbar spine. Chronic appearing compression of an upper jenny mbar vertebral body is partially visualized. At the anterior aspect of the pancreatic body, a new cyst is 1.2 cm greatest diameter. IMPRESSION: No CT evidence of pulmonary embolus. Atherosclerosis. Interval appearance of a 1.2 cm cyst of the pancreas. Please consider CT follow-up in 1-2 years to ev aluate for stability.
== END 2019-08-15 18:30 | disposition home or self-care (01) ==
LOC: ERS 16:15
DX: J20.9 Acute bronchitis, unspecified (principal); E11.9 Type 2 diabetes mellitus without complications; E78.5 Hyperlipidemia, unspecified; E78.00 Pure hypercholesterolemia, unspecified; I10 Essential (primary) hypertension; F32.9 Major depressive disorder, single episode, unspecified; Z79.899 Other long term (current) drug therapy; Z79.82 Long term (current) use of aspirin; Z79.4 Long term (current) use of insulin
CPT/HCPCS: 36415; 71275; 80053; 83880; 84484; 85025; 85379; 93005; 94640; J1200; J2930; J7620; Q9967; S0028

== ENCOUNTER 2019-10-09 11:09 | Outpatient (CLI) | payer MEDICARE, BC ==
--- NOTE | 2019-10-09 11:33 | RAD ---
EXAM: XR Lumbar Spine Min 4 View PROVIDED CLINICAL HISTORY: Back pain COMPARISON: 02/08/2019 FINDINGS: Lateral neutral, flexion lateral, extension lateral and lumbosacral lateral views of the lumbar spine submitted. Compression deformities of L1 and T12 are redemonstrated. Vertebral body heights appear otherwise maintained. There is normal lumbar alignment in the neutral and extended positions. There i s approximately 2 mm of anterolisthesis of L4 on L5 with flexion and trace anterolisthesis of L3 on L4 with flexion. There is prominent disc space height loss and endplate degenerative change at L2-3. Multilevel advanced facet arthritis. IMPRESSION: Lumbar disc and facet degenerative change with anterolisthesis of L3 on L4 and L4 on L5 in flexion.
== END 2019-10-09 11:10 | disposition home or self-care (01) ==
LOC: BICRAD 11:09
PROVIDERS: ATTEND Specialist
DX: M51.16 Intervertebral disc disorders with radiculopathy, lumbar region (principal); M43.16 Spondylolisthesis, lumbar region; M47.26 Other spondylosis with radiculopathy, lumbar region
CPT/HCPCS: 72110

== ENCOUNTER 2019-11-09 12:44 | Outpatient (CLI) | payer MEDICARE, BC ==
--- NOTE | 2019-11-09 15:37 | MRI ---
MRI THORACIC SPINE PERFORMED WITHOUT CONTRAST ENHANCEMENT: Date: 11/09/2019 HISTORY: Back pain. History of falls. Pain extending to left leg. COMPARISON: 11/17/2018 exam. FINDINGS: Vertebral bodies show normal marrow signal change. There is some minimal osteoporotic type cupping to the superior end plate of T12 without any marrow edema change, and also some compression changes inv olving the superior end plate of L1, which is partially visualized on this exam. Scoliotic change to spine, convex to the right, is again noted in the lower thoracic spine region. T5-6: There is a small left paracentral to slightly lateral protrusion at this level, minimally inde nting the thecal sac. T6-7: Some minimal left-sided asymmetry to the disc changes are seen at this level again with minima l indentation of the thecal sac. T7-8: There is a more broad based disc osteophyte complex at this level. This is more central to lef t paracentral, felt to be fairly similar to the previous examination. Perhaps there is a slightly mor e prominent left paracentral component. T8-9: There is a more central disc osteophyte complex at this level, associated with a mild degree o f canal stenosis, similar to the previous exam. T10-11: There is some borderline left sided foraminal narrowing at this level. IMPRESSION: 1. Disc changes which are most pronounced at the T7-T8 and T8-T9 levels as discussed above. 2. Some mild cupping to the superior end plates of T12 and partial visualization of some cupping to the superior end plate of L1 without definite marrow edema change. POS: [facility]
--- NOTE | 2019-11-09 15:40 | MRI ---
MRI OF THE LUMBAR SPINE WITHOUT CONTRAST: 11/09/19 INDICATIONS: Compression fracture at L1. Compared to plain films of the lumbar spine 08/16/18 which demonstrate compression deformity at L1. Compared to MRI lumbar spine dated 11/17/18 which demonstrated a compression deformity at L1. FINDINGS: The compression deformity at L1 is again seen and is unchanged from the prior MRI of 11/17/18. There i s no evidence of edema. The other lumbar vertebrae maintain normal height and alignment. No vertebra l body edema seen. Mild wedging at T12 is stable with degenerative spurring at T11-T12 and T12-L1. There is retropulsion of the posterior cortex of L1 which is similar in appearance to the MRI of 11/17. T11-L1: The retropulsion of the posterior superior cortex of L1 compresses the thecal sac resulting i n mild central anal stenosis. It does impinge on the conus. No interval change from 2019. L1-2: There is a mild diffuse disc bulge flattening the thecal sac. Minimal central canal stenosis. L2-3: Slight posterior listhesis with broad based disc bulge is unchanged in appearance from the prio r MRI. These changes flatten the anterior thecal sac and are associated with facet hypertrophy result ing in mild central canal stenosis which appears stable. The left foraminal stenosis also again noted . L3-4: Broad based disc bulge flattens the thecal sac. Facet hypertrophy and arthrosis. Mild central c anal stenosis is stable. No significant foraminal stenosis. L4-5: Diffuse disc bulge is unchanged from prior exam. Facet hypertrophy. Mild central canal stenosis , unchanged. Left foraminal encroachment is stable. L5-S1: There is a central disc protrusion which was present previously. On today's exam, there is ext ruded disc which shows superior migration along the posterior cortex of L5 slightly to the left of mi dline. This extruded fragment measures 9 mm AP dimension in the axial plane just above the L5-S1 disc space. It compresses the anterior thecal sac on the right and displaces the traversing nerve roots. At the disc space, a broad based protrusion is associated with facet hypertrophy resulting in mild to moderate central canal stenosis and bilateral foraminal stenosis, more severe on the left. There is an asymmetric disc osteophyte bulge to the left. IMPRESSION: 1. New extruded disc with superior migration to the left of midline at L5-S1 as described above. Severe left foraminal stenosis at this level. 2. Compression deformity at L1 is stable. 3. Disc bulges at the other lumbar levels are again seen and appear stable as described. POS: [facility]
== END 2019-11-09 12:45 | disposition home or self-care (01) ==
LOC: TBSIIMAG 12:44
PROVIDERS: ATTEND Nurse Practitioner Family
DX: S32.010A Wedge compression fracture of first lumbar vertebra, initial encounter for closed fracture (principal); S22.080A Wedge compression fracture of T11-T12 vertebra, initial encounter for closed fracture; M48.061 Spinal stenosis, lumbar region without neurogenic claudication; M48.07 Spinal stenosis, lumbosacral region; M51.27 Other intervertebral disc displacement, lumbosacral region; M51.9 Unspecified thoracic, thoracolumbar and lumbosacral intervertebral disc disorder; M43.9 Deforming dorsopathy, unspecified
CPT/HCPCS: 72146; 72148

== ENCOUNTER 2020-04-23 06:27 | Outpatient (CLI) | payer MEDICARE, BC, OTHER ==
[2020-04-23 16:16] LABS: Hemoglobin 13.1 g/dL (12.0-16.0); Mean Corpuscular HGB CONC 32.7 g/dL (32.0-36.0); Mean Corpuscular Hemoglobin 29.3 pg (27.0-31.0); Mean Corpuscular Volume 89.5 fL (78.0-98.0); Platelet Count 380 thou/uL (130-400); RBC Distribution Width 16.3 % (11.5-14.5); Red Blood Cell (RBC) Count 4.47 mill/uL (4.20-5.40); White Blood Cell (WBC) Count 17.6 thou/uL (4.8-10.8)
[2020-04-23 16:23] LABS: Anion Gap 17 mmol/L (10-20); BUN (Urea Nitrogen) 15 mg/dL (9.8-20.1); Calc. Creatinine Clearance 0 mL/min (70-130); Calcium 9.5 mg/dL (7.8-10.44); Carbon Dioxide 26 mmol/L (23-31); Chloride 97 mmol/L (98-107); Estimated GFR-MDRD 66; Glucose 194 mg/dL (83-110); Potassium 3.6 mmol/L (3.5-5.1); Sodium 136 mmol/L (136-145)
[2020-04-24 14:39] LABS: SARS-CoV-2 MS2 Positive; SARS-CoV-2 N Gene Negative; SARS-CoV-2 S Gene Negative; SARS-CoV-2 orf1ab Negative
== END 2020-04-23 06:28 | disposition home or self-care (01) ==
LOC: LABBT 06:27
PROVIDERS: ATTEND Neurological Surgery
DX: Z01.818 Encounter for other preprocedural examination (principal); Z11.59 Encounter for screening for other viral diseases; M54.16 Radiculopathy, lumbar region
CPT/HCPCS: 80048; 85027; 93005; U0003; 87635; 93010

== ENCOUNTER 2020-04-28 06:08 | Observation (INO) | payer MEDICARE, BC ==
[2020-04-21 12:37] VITALS: BMI 28.3
[2020-04-28] MEDS ORDERED: Fentanyl 100 MCG/2 ML VIAL ONE ×4 (06:47→09:40)
[2020-04-28] MEDS ORDERED: Promethazine HCl 25 MG/ML VIAL SLOW IVP PRN (07:15)
[2020-04-28] MEDS ORDERED: Morphine Sulfate 2 MG/ML SYRINGE SLOW IVP PRN (07:15)
[2020-04-28] MEDS ORDERED: Ondansetron HCl/PF 4 MG/2 ML Vial IVP PRN (07:15)
[2020-04-28] MEDS ORDERED: Promethazine HCl 25 MG/ML VIAL IM PRN ×2 (07:15→11:18)
[2020-04-28] MEDS ORDERED: HYDROmorphone 2 MG/ML VIAL SLOW IVP PRN (07:15)
[2020-04-28] MEDS ORDERED: Meperidine HCl/PF 25 MG/ML VIAL SLOW IVP PRN (07:15)
[2020-04-28] MEDS ORDERED: PACU-Morphine 4MG/ML VIAL SLOW IVP PRN (07:15)
[2020-04-28] MEDS ORDERED: Clindamycin/D5W 900 mg/50 ml Premix Bag ONE (07:16)
[2020-04-28] MEDS ORDERED: Levofloxacin 500 mg/D5W 100 ml Premix Bag ONE (07:16)
[2020-04-28] MEDS ORDERED: SUGAMMADEX SODIUM 200 MG/2 ML VIAL ONE (08:45)
--- NOTE | 2020-04-28 09:08 | OP ---
DATE OF PROCEDURE: 04/28/2020 SPRAY I PAINTER: Samantha Porras PA-C PROCEDURES PERFORMED: Left L5-S1 laminectomy, facetectomy, diskectomy, and foraminotomy, posterolateral arthrodesis, pedicle screw instrumentation left L5-S1, demineralized bone matrix, local morselized autograft. DESCRIPTION OF PROCEDURE: The patient was brought to the operating room and intubated. She was rolled in a prone position on gel-filled chest rolls. The previous incision was reopened and extended and the L5-S1 level again identified. We reperformed the left L5-S1 laminectomy and foraminotomy and found the pedicles of left L5 and left S1 to be very close to each other. We then explored the disk space and removed herniated disk at L5-S1. A complete decompression was achieved. We next placed pedicle screws at left L5 and left S1 using lateral fluoroscopic guidance. The bones were found to be quite soft. The kellee was then secured between the screws. Distraction was applied and the screws were all final tightened to the kellee. The wound was then extensively irrigated and MAC hemostasis was secured. A combination of demineralized bone matrix and local morselized autograft was laid over the right lamina on posterolateral surfaces for the purpose of arthrodesis. Vancomycin powder was applied and the wound was then closed in anatomic layers. Job ID: [id number]
[2020-04-28] MEDS ORDERED: EPHEDRINE 25 MG/5 ML SYRINGE ONE (09:31)
[2020-04-28] MEDS ORDERED: Lidocaine 1% PF 5 ML VIAL ONE (09:31)
[2020-04-28] MEDS ORDERED: PHENYLEPHRINE-NS 100 MCG/ML 10 ML SYRINGE ONE (09:31)
[2020-04-28] MEDS ORDERED: Dexamethasone 20 MG/5 ML VIAL ONE (09:31)
[2020-04-28] MEDS ORDERED: Rocuronium Bromide 10 MG/ML (10ML VIAL) ONE (09:31)
[2020-04-28] MEDS ORDERED: PROPOFOL 200 MG/20 ML VIAL ONE (09:31)
[2020-04-28] MEDS ORDERED: Ondansetron PF 4 MG/2 ML Vial ONE (09:31)
[2020-04-28] MEDS ORDERED: Morphine 4 MG/ML VIAL ONE (09:49)
[2020-04-28] MEDS ORDERED: Ondansetron PF 4 MG/2 ML Vial IM PRN (11:18)
[2020-04-28] MEDS ORDERED: diphenhydrAMINE 50 MG/ML VIAL IVP PRN (11:18)
[2020-04-28] MEDS ORDERED: traMADol HCl 50 MG TAB PO PRN ×2 (11:18)
[2020-04-28] MEDS ORDERED: Milk Of Magnesia 30 ML UDCUP PO PRN (11:18)
[2020-04-28] MEDS ORDERED: Mag-Al 1200 mg/1200 mg/30 ML UDCUP PO PRN (11:18)
[2020-04-28] MEDS ORDERED: Promethazine HCl 12.5 MG SUPP PR PRN (11:18)
[2020-04-28] MEDS ORDERED: Promethazine 25 MG TAB PO PRN (11:18)
[2020-04-28] MEDS ORDERED: Bisacodyl 10 MG SUPP PR PRN (11:18)
[2020-04-28] MEDS ORDERED: Morphine 2 MG/ML VIAL SLOW IVP PRN (11:18)
[2020-04-28] MEDS ORDERED: diphenhydrAMINE 25 MG CAP PO PRN (11:18)
[2020-04-28] MEDS ORDERED: Acetaminophen/Codeine 30-300mg Tablet PO PRN (11:18)
[2020-04-28] MEDS ORDERED: cloNIDine 0.1 MG TAB PO PRN (11:39)
[2020-04-28] MEDS ORDERED: HYDROcodone/Acetaminophen 10/325 mg Tablet PO PRN (11:48)
[2020-04-28] MEDS: Sodium Chloride 0.9% 1,000 ML IV SCH (12:38)
[2020-04-28] MEDS: tiZANidine HCl 4 MG TAB PO PRN (12:56)
[2020-04-28] MEDS ORDERED: Dextrose 5% in Water 1,000 ML IV PRN (15:29)
[2020-04-28] MEDS ORDERED: Dextrose 50% Abboject 50 ML SYRINGE SLOW IVP PRN (15:29)
[2020-04-28] MEDS: metFORMIN 500 MG TAB PO SCH (16:38)
[2020-04-28] MEDS: Clindamycin/D5W 900 MG in Premix Bag 1 BAG IVPB SCH ×2 (16:38→23:51)
[2020-04-28] MEDS: predniSONE 5 MG TAB PO SCH (16:39)
[2020-04-28] MEDS: HumaLOG 300 UNITS/3 ML VIAL SC PRN ×2 (17:08→22:07)
[2020-04-28] MEDS ORDERED: Alogliptin 25 MG TAB PO SCH (21:00)
[2020-04-28] MEDS: DULoxetine 60 MG CAP PO SCH (22:05)
[2020-04-28] MEDS: Rosuvastatin 10 MG TAB PO SCH (22:06)
[2020-04-28] MEDS: Folic Acid 1 MG TAB PO SCH (22:06)
[2020-04-28] MEDS: Insulin Glargine 24 UNITS in Pre-Filled Syringe 1 EACH SC SCH (22:06)
[2020-04-29] MEDS: Acetaminophen/Codeine 30-300mg Tablet PO PRN ×4 (00:09→21:05)
[2020-04-29] MEDS: Sodium Chloride 0.9% 1,000 ML IV SCH ×2 (04:01→16:51)
[2020-04-29 05:46] LABS: #Lymphocytes 0.9 thou/uL (1.20-3.40); #Monocytes 1.5 thou/uL (0.11-0.59); %Basophils 0.1 % (0.0-1.0); %Eosinophils 0.3 % (0.0-10.0); %Lymphocytes 6.5 % (21.0-51.0); %Monocytes 10.2 % (0.0-10.0); %Neutrophils 82.9 % (42.0-75.0); Hemoglobin 10.6 g/dL (12.0-16.0); Mean Corpuscular HGB CONC 31.3 g/dL (32.0-36.0); Mean Corpuscular Hemoglobin 28.3 pg (27.0-31.0); Mean Corpuscular Volume 90.4 fL (78.0-98.0); Mean Platelet Volume 7.7 fL (7.4-10.4); Platelet Count 287 thou/uL (130-400); RBC Distribution Width 15.7 % (11.5-14.5); Red Blood Cell (RBC) Count 3.75 mill/uL (4.20-5.40); White Blood Cell (WBC) Count 14.4 thou/uL (4.8-10.8)
[2020-04-29 06:02] LABS: Anion Gap 11 mmol/L (10-20); BUN (Urea Nitrogen) 13 mg/dL (9.8-20.1); Calc. Creatinine Clearance 83 mL/min (70-130); Calcium 8.8 mg/dL (7.8-10.44); Carbon Dioxide 27 mmol/L (23-31); Chloride 104 mmol/L (98-107); Estimated GFR-MDRD 76; Glucose 155 mg/dL (83-110); Potassium 3.9 mmol/L (3.5-5.1); Sodium 138 mmol/L (136-145)
--- NOTE | 2020-04-29 06:21 | PRG ---
DATE OF SERVICE: 04/29/2020 SUBJECTIVE: The patient is postoperative day #1, status post L5-S1 decompression and fusion. Overnight, she was transitioned to the Med/Surg floor, where her pain has been well-controlled with p.o. medications, she is tolerating a regular diet, and she is voiding appropriately. She has not had any incisional issues. She has not done very much walking and has been somewhat slow to mobilize. The patient does have a history of adrenal insufficiency, and we have increased her postoperative steroid dose per Dr. Bonilla's recommendations, and she has been doing well. OBJECTIVE: On exam this morning, vital signs are stable. She is awake, alert, in no acute distress. She has free active range of motion of all extremities. No focal motor weakness. Her incisional dressing is clean and dry. Overall, the patient is doing quite well. She has been somewhat slow to mobilize, so we will have her to work with physical therapy today and continue pain control measures. I anticipate home tomorrow. Job ID: [id number]
--- NOTE | 2020-04-29 06:54 | CON ---
DATE OF CONSULTATION: PRIMARY CARE PHYSICIAN: Dr. Bonilla. CHIEF COMPLAINT: Decompression and fusion at L5 through S1. HISTORY OF PRESENT ILLNESS: The patient is a very pleasant 74-year-old female with past medical history significant for diabetes type 2, diabetes insipidus, adrenal insufficiency, who was admitted for an elective decompression and fusion at L5 through S1. The patient had her surgery today on April 28, 2020. We have been consulted for her medical management. PAST MEDICAL HISTORY: Psoriatic arthritis, diabetes mellitus type 2, diabetes insipidus, adrenal insufficiency, hyperlipidemia, and hypertension. PAST SURGICAL HISTORY: Multiple breast biopsies, bladder repair, hysterectomy, cholecystectomy, appendectomy, left hip surgery, and tonsillectomy. ALLERGIES: CODEINE, KEFLEX, AND SULFA. MEDICATIONS: 1. Fluoxetine 40 mg. 2. Cymbalta 60 mg. 3. Vitamin D3 2000 units. 4. Aspirin 81 mg. 5. Lisinopril 40 mg p.o. b.i.d. 6. Folvite 1 mg. 7. Prilosec 20 mg. 8. Methotrexate 25 mg IM q.7 days. 9. Magnesium 300 mg. 10. Tramadol 100 mg. 11. Metformin 500 mg p.o. b.i.d. 12. Januvia 100 mg at night. 13. Rosuvastatin calcium 10 mg. 14. Lantus 24 units at night. 15. Prednisone 10 mg twice a day. SOCIAL HISTORY: The patient lives at home with her . She denies any alcohol, drug or tobacco use. FAMILY HISTORY: Noncontributory to this case. REVIEW OF SYSTEMS: All other review of systems are negative unless noted in HPI. PHYSICAL EXAMINATION: VITAL SIGNS: Temperature 98.0 orally, pulse 105, respiratory rate 18, O2 saturation 95% on room air, and blood pressure 128/92. CONSTITUTIONAL: The patient appears nontoxic and pain-free. HEENT: Head; atraumatic, normocephalic. Eyes; PERRLA, extraocular muscles intact. NECK: Normal range of motion. No lymphadenopathy. RESPIRATORY: Clear to auscultation bilaterally. Normal chest rise, symmetrical. No rhonchi. No wheezes. No rales. CARDIOVASCULAR: Regular rate and rhythm. No murmurs. No rubs. No gallops. ABDOMEN: Nontender. Normal bowel sounds. No distention. No masses. BACK: Lower back incision from surgery. EXTREMITIES: Lower extremities, posterior tibial pulse and pedal pulse present. No cyanosis. No clubbing. No edema. NEUROLOGIC: Alert and oriented x3. No focal motor deficits. No focal sensory deficits. PSYCHIATRIC: Normal affect. Normal behavior. LABS/IMAGING: Glucose 156 this morning. EKG shows sinus tach, no ectopic beats , 108 beats per minute. IMPRESSION AND PLAN: 1. Diabetes mellitus type 2. Home medications have been reconciled and restarted. Accu-Cheks and sliding scale insulin have now been ordered along with the diet changed to a diabetic diet. We will continue to monitor the patient's blood sugars before meals and at bedtime, especially with increase of steroid that she is currently receiving. 2. Acute blood loss with the surgery. We will monitor the patient's labs in the morning. The patient is faring well at this time with no complaints. 3. Hypertension. Stable at this time. We will monitor the patient's blood pressures. Home medications have been reconciled and restarted, we can add a p.r.n. antihypertensive if necessary. 4. Acute pain. P.r.n. pain medications are available and also ice packs are available for the patient's shoulder pain, which she states is chronic for her. No pain from surgical area at this time. 5. The patient has been started on aspirin twice a day for her VTE prophylaxis and GI prophylaxis has been added. 6. The patient wishes to be a full code. Her surrogate decision maker is her . The patient has been discussed with Dr. Ford. We appreciate you allowing us to participate in the care of this patient. Job ID: [id number] [facility]
[2020-04-29] MEDS ORDERED: FLUoxetine HCl 20 MG CAP PO SCH (09:00)
[2020-04-29] MEDS: Vit A,C & E/Lutein/Minerals Tablet PO SCH (09:13)
[2020-04-29] MEDS: Magnesium Oxide 400 MG TAB PO SCH (09:13)
[2020-04-29] MEDS: Cholecalciferol 1,000 UNITS (25 MCG) TAB PO SCH (09:14)
[2020-04-29] MEDS: predniSONE 5 MG TAB PO SCH ×2 (09:14→16:51)
[2020-04-29] MEDS: FLUoxetine HCl 20 MG CAP PO SCH (09:14)
[2020-04-29] MEDS: predniSONE 20 MG TAB PO SCH (09:15)
[2020-04-29] MEDS: metFORMIN 500 MG TAB PO SCH ×2 (09:15→16:51)
[2020-04-29] MEDS: Lisinopril 20 MG TAB PO SCH (09:15)
[2020-04-29] MEDS: HumaLOG 300 UNITS/3 ML VIAL SC PRN ×3 (12:29→20:43)
[2020-04-29] MEDS: Folic Acid 1 MG TAB PO SCH (20:43)
[2020-04-29] MEDS: DULoxetine 60 MG CAP PO SCH (20:43)
[2020-04-29] MEDS: Insulin Glargine 24 UNITS in Pre-Filled Syringe 1 EACH SC SCH (20:43)
[2020-04-29] MEDS: Rosuvastatin 10 MG TAB PO SCH (20:43)
[2020-04-29] MEDS ORDERED: Folic Acid 1 MG TAB PO SCH (21:00)
[2020-04-29] MEDS ORDERED: DULoxetine 60 MG CAP PO SCH (21:00)
[2020-04-29] MEDS ORDERED: Alogliptin 25 MG TAB PO SCH (21:00)
[2020-04-29] MEDS ORDERED: Rosuvastatin 10 MG TAB PO SCH (21:00)
[2020-04-30] MEDS: Sodium Chloride 0.9% 1,000 ML IV SCH (02:25)
[2020-04-30 05:26] LABS: #Eosinphils 0.1 thou/uL (0.0-0.7); #Lymphocytes 1.8 thou/uL (1.20-3.40); #Monocytes 1.2 thou/uL (0.11-0.59); #Neutrophils 10.2 thou/uL (1.40-6.50); %Basophils 0.2 % (0.0-1.0); %Eosinophils 0.5 % (0.0-10.0); %Lymphocytes 13.5 % (21.0-51.0); %Monocytes 8.9 % (0.0-10.0); %Neutrophils 76.8 % (42.0-75.0); Hemoglobin 11.1 g/dL (12.0-16.0); Mean Corpuscular HGB CONC 30.5 g/dL (32.0-36.0); Mean Corpuscular Hemoglobin 27.8 pg (27.0-31.0); Mean Corpuscular Volume 91.1 fL (78.0-98.0); Platelet Count 294 thou/uL (130-400); RBC Distribution Width 15.7 % (11.5-14.5); Red Blood Cell (RBC) Count 3.98 mill/uL (4.20-5.40); White Blood Cell (WBC) Count 13.3 thou/uL (4.8-10.8)
[2020-04-30 05:40] LABS: Anion Gap 10 mmol/L (10-20); BUN (Urea Nitrogen) 14 mg/dL (9.8-20.1); Calc. Creatinine Clearance 88 mL/min (70-130); Carbon Dioxide 27 mmol/L (23-31); Chloride 102 mmol/L (98-107); Estimated GFR-MDRD 82; Glucose 106 mg/dL (83-110); Potassium 3.5 mmol/L (3.5-5.1); Sodium 135 mmol/L (136-145)
[2020-04-30] MEDS: tiZANidine HCl 4 MG TAB PO PRN (06:49)
[2020-04-30 08:03] VITALS: BP 114/68; TEMP 98.3
[2020-04-30] MEDS: Magnesium Oxide 400 MG TAB PO SCH (08:48)
[2020-04-30] MEDS: predniSONE 20 MG TAB PO SCH (08:49)
[2020-04-30] MEDS: predniSONE 5 MG TAB PO SCH (08:49)
[2020-04-30] MEDS: metFORMIN 500 MG TAB PO SCH (08:50)
[2020-04-30] MEDS: FLUoxetine HCl 20 MG CAP PO SCH (08:50)
[2020-04-30] MEDS: Vit A,C & E/Lutein/Minerals Tablet PO SCH (08:50)
[2020-04-30] MEDS: Cholecalciferol 1,000 UNITS (25 MCG) TAB PO SCH (08:50)
[2020-04-30] MEDS: Lisinopril 20 MG TAB PO SCH (08:50)
[2020-04-30] MEDS: Acetaminophen/Codeine 30-300mg Tablet PO PRN (08:54)
--- NOTE | 2020-04-30 17:32 | DIS ---
DATE OF ADMISSION: 04/28/2020 DATE OF DISCHARGE: 04/30/2020 The patient is a 74-year-old female, recently evaluated in our office for worsening low back and left leg pain. She was found to have significant degenerative disease and a left-sided herniated disk at L5-S1. She underwent left L5-S1 diskectomy and fusion on 04/28/2020. Following the surgery, she was transitioned to the Med/Surg floor, where her pain has been well controlled with p.o. medications, she has been tolerating a regular diet, and she has been voiding appropriately. She has been up ambulating in the department with the assistance of PT without difficulty. The patient did have a history of adrenal insufficiency, and her steroid dosing was adjusted per Dr. Fry. She has not been having any issues with this underlying process. On postoperative day #2, she was awake, alert, in no acute distress. She had free active range of motion of all extremities. No focal motor weakness. No reflex asymmetry. We will go ahead and dismiss the patient to home. I have discussed home care and precautions. She will follow up with Dr. Chris in 2 weeks. I have checked [employer] prior to discharge. She has been prescribed Tylenol No. 3, Zanaflex, and Keflex. Job ID: [id number]
== END 2020-04-30 12:12 | disposition home or self-care (01) ==
LOC: SDC 06:08 → SURG B 10:45
PROVIDERS: ADMIT Neurological Surgery; ATTEND Neurological Surgery
PROC: 0ST20ZZ Resection of Lumbar Vertebral Disc, Open Approach (ICD-10-PCS; principal; 2020-04-28)
PROC: 01NB0ZZ Release Lumbar Nerve, Open Approach (ICD-10-PCS; 2020-04-28)
DX: M51.16 Intervertebral disc disorders with radiculopathy, lumbar region (principal); E11.9 Type 2 diabetes mellitus without complications; E23.2 Diabetes insipidus; E27.40 Unspecified adrenocortical insufficiency; L40.50 Arthropathic psoriasis, unspecified; E78.5 Hyperlipidemia, unspecified; I10 Essential (primary) hypertension; Z79.4 Long term (current) use of insulin; Z79.82 Long term (current) use of aspirin; Z79.899 Other long term (current) drug therapy; Z88.1 Allergy status to other antibiotic agents; Z88.2 Allergy status to sulfonamides; Z88.5 Allergy status to narcotic agent; Z91.041 Radiographic dye allergy status
CPT/HCPCS: 20930; 20936; 22633; 22853; 76000; 80048 ×2; 82962 ×2; 85025 ×2; 97116; C1713 ×4; C1768; J2270; 36415; 36416; 96361; 96365; 96375; 96376; G0378; J0690; J1100; J1815; J1956; J2405; J2704; J3010; J3370; J3490; J7512

== ENCOUNTER 2020-10-27 14:03 | Outpatient (CLI) | payer MEDICARE, BC ==
--- NOTE | 2020-10-27 14:31 | RAD ---
4 views of the lumbar spine: 10/27/2020 COMPARISON: 05/15/2020 HISTORY: Radiculopathy, prior back surgery FINDINGS: Stable incompletely imaged lower thoracic spine dextroscoliosis. There is prominent levosco liosis of the upper lumbar spine measuring approximately 40 degrees from the T12-L1 level through the superior endplate of L4. L5 and S1 left-sided pedicle screws are present with vertically oriented interlocking rods. Severe anterior wedge compression deformities noted at T12 and L1, similar when compared to the 2019 exam. On the neutral imaging there is anterolisthesis at L5-S1 measuring 6 mm and there is retrolisthesis a t L1-2 measuring 3 mm. Upon flexion, the anterolisthesis at L5-S1 measures 8 mm and the retrolisthesis at L1-2 measures 4 mm . On the extension imaging the anterolisthesis at L5-S1 measures 7-8 mm and the retrolisthesis at L1-2 measures 5 mm. There is disc space narrowing with degenerative endplate change and anterior osteophyte formation at L2-3. There is prominent lower lumbar spine facet hypertrophy. Partially visualized bilateral hip arthroplasties are noted. IMPRESSION: Postoperative and chronic degenerative changes/posttraumatic changes as detailed above.
== END 2020-10-27 14:04 | disposition home or self-care (01) ==
LOC: BICRAD 14:03
PROVIDERS: ATTEND Specialist
DX: M51.16 Intervertebral disc disorders with radiculopathy, lumbar region (principal); M47.26 Other spondylosis with radiculopathy, lumbar region; Z98.890 Other specified postprocedural states
CPT/HCPCS: 72110

== ENCOUNTER 2020-12-24 07:09 | Day surgery (SDC) | payer MEDICARE, BC ==
[2020-12-22 11:30] VITALS: BMI 27.6
[2020-12-24] MEDS ORDERED: Sodium Chloride 0.9% 10 ML ONE (08:00)
[2020-12-24 08:14] VITALS: BP 139/90; TEMP 99.2
[2020-12-24] MEDS ORDERED: Iopamidol-M 300 61% 15 ML VIAL ONE (14:11)
== END 2020-12-24 10:45 | disposition home or self-care (01) ==
LOC: RAD 07:09
PROVIDERS: ATTEND Neurological Surgery
PROC: B01B1ZZ Fluoroscopy of Spinal Cord using Low Osmolar Contrast (ICD-10-PCS; principal; 2020-12-24)
DX: M47.16 Other spondylosis with myelopathy, lumbar region (principal); M47.26 Other spondylosis with radiculopathy, lumbar region; M51.06 Intervertebral disc disorders with myelopathy, lumbar region; M51.16 Intervertebral disc disorders with radiculopathy, lumbar region; M43.17 Spondylolisthesis, lumbosacral region; M48.07 Spinal stenosis, lumbosacral region; M48.04 Spinal stenosis, thoracic region; M51.24 Other intervertebral disc displacement, thoracic region; M41.84 Other forms of scoliosis, thoracic region; S22.080A Wedge compression fracture of T11-T12 vertebra, initial encounter for closed fracture; E23.2 Diabetes insipidus; E11.9 Type 2 diabetes mellitus without complications; J45.909 Unspecified asthma, uncomplicated; K21.9 Gastro-esophageal reflux disease without esophagitis; L40.50 Arthropathic psoriasis, unspecified; M81.0 Age-related osteoporosis without current pathological fracture; Z79.4 Long term (current) use of insulin; Z79.52 Long term (current) use of systemic steroids; Z79.82 Long term (current) use of aspirin; Z79.899 Other long term (current) drug therapy; Z88.1 Allergy status to other antibiotic agents; Z88.2 Allergy status to sulfonamides; Z91.02 Food additives allergy status; Z91.041 Radiographic dye allergy status; Z98.1 Arthrodesis status
CPT/HCPCS: 62305; 72129; 72132; Q9967

== ENCOUNTER 2021-01-22 13:08 | Outpatient (CLI) | payer MEDICARE, BC | END 2021-01-22 13:09 | disposition home or self-care (01) | LOC: TBSIIMAG 13:08 | PROVIDERS: ATTEND Physician Assistant | DX: S22.080D Wedge compression fracture of T11-T12 vertebra, subsequent encounter for fracture with routine healing (principal); S32.011D Stable burst fracture of first lumbar vertebra, subsequent encounter for fracture with routine healing; M51.36 Other intervertebral disc degeneration, lumbar region; Z98.890 Other specified postprocedural states | CPT/HCPCS: 72072; 72100 ==

== ENCOUNTER 2021-02-06 08:53 | Outpatient (CLI) | payer MEDICARE, BC | END 2021-02-06 08:54 | disposition home or self-care (01) | LOC: TBSIIMAG 08:53 | PROVIDERS: ATTEND Neurological Surgery | DX: S22.089A Unspecified fracture of T11-T12 vertebra, initial encounter for closed fracture (principal); M41.9 Scoliosis, unspecified; M47.814 Spondylosis without myelopathy or radiculopathy, thoracic region | CPT/HCPCS: 72072; 72146 ==

== ENCOUNTER 2021-06-16 08:55 | Outpatient (CLI) | payer MEDICARE, BC | END 2021-06-16 08:56 | disposition home or self-care (01) | LOC: BICMAMMO 08:55 | PROVIDERS: ATTEND Obstetrics & Gynecology | DX: Z12.31 Encounter for screening mammogram for malignant neoplasm of breast (principal); Z98.890 Other specified postprocedural states | CPT/HCPCS: 77063; 77067 ==

== ENCOUNTER 2021-06-23 09:05 | Outpatient (CLI) | payer MEDICARE, BC ==
[2021-06-23] MEDS ORDERED: Iopamidol 370 76% 100 ML VIAL ONE (11:43)
== END 2021-06-23 09:06 | disposition home or self-care (01) ==
LOC: CT 09:05
PROVIDERS: ATTEND Physician Assistant Medical
DX: K86.2 Cyst of pancreas (principal); K76.9 Liver disease, unspecified; K86.89 Other specified diseases of pancreas
CPT/HCPCS: 74170; 82565; Q9967

== ENCOUNTER 2021-07-10 15:14 | Outpatient (CLI) | payer MEDICARE, BC | END 2021-07-10 15:15 | disposition home or self-care (01) | LOC: BICMRI 15:14 | PROVIDERS: ATTEND Specialist | DX: M47.22 Other spondylosis with radiculopathy, cervical region (principal); Z98.1 Arthrodesis status | CPT/HCPCS: 72141 ==

== ENCOUNTER 2021-08-25 16:27 | Outpatient (CLI) | payer MEDICARE, BC | END 2021-08-25 16:28 | disposition home or self-care (01) | LOC: BICRAD 16:27 | PROVIDERS: ATTEND Specialist | DX: M47.22 Other spondylosis with radiculopathy, cervical region (principal); Z98.1 Arthrodesis status | CPT/HCPCS: 72050 ==

== ENCOUNTER 2021-11-02 13:28 | Outpatient (CLI) | payer MEDICARE, BC ==
[2021-11-02 15:33] LABS: #Basophils 0.1 10x3/uL (0.0-0.2); #Eosinphils 0.2 10x3/uL (0.0-0.5); #Neutrophils 6.9 10x3/uL (1.5-8.4); %Basophils 1.1 % (0.0-2.0); %Eosinophils 1.9 % (0.0-6.0); %Lymphocytes 13.8 % (18.0-47.0); %Monocytes 10.3 % (0.0-10.0); %Neutrophils 70.5 % (40.0-75.0); Hemoglobin 12.6 g/dL (12.0-15.5); Mean Corpuscular Hemoglobin 28.7 pg (27.0-33.0); Mean Corpuscular Volume 89.7 fl (81.6-98.3); Mean Platelet Volume 9.5 fl (7.4-10.4); Platelet Count 375 10x3/uL (150-450); RBC Distribution Width 19.7 % (11.5-14.5); Red Blood Cell (RBC) Count 4.39 10x6/uL (3.90-5.03); White Blood Cell (WBC) Count 9.8 10x3/uL (3.5-10.5)
[2021-11-02 15:39] LABS: Anion Gap 18 mmol/L (10-20); BUN (Urea Nitrogen) 20 mg/dL (9.8-20.1); Calc. Creatinine Clearance 0 mL/min (70-130); Calcium 9.2 mg/dL (7.8-10.44); Carbon Dioxide 26 mmol/L (23-31); Chloride 99 mmol/L (98-107); Glucose 200 mg/dL (83-110); Potassium 3.9 mmol/L (3.5-5.1); Sodium 139 mmol/L (136-145)
[2021-11-03 08:27] LABS: SARS-CoV-2 PCR by NAA Not Detected (NotDetected)
== END 2021-11-02 13:29 | disposition home or self-care (01) ==
LOC: LABBT 13:28
PROVIDERS: ATTEND Orthopaedic Surgery
DX: Z01.812 Encounter for preprocedural laboratory examination (principal); M12.811 Other specific arthropathies, not elsewhere classified, right shoulder; Z20.822 Contact with and (suspected) exposure to COVID-19
CPT/HCPCS: 80048; 85025; U0003; U0005

== ENCOUNTER 2021-11-05 06:12 | Inpatient (IN) | payer MEDICARE, BC ==
[2021-10-28 13:44] VITALS: BMI 29.5
[2021-11-05] MEDS ORDERED: Lidocaine 1% (PF) 30 ML VIAL ONE (06:39)
[2021-11-05] MEDS ORDERED: Fentanyl 100 MCG/2 ML VIAL ONE ×5 (06:39→11:34)
[2021-11-05] MEDS ORDERED: Midazolam HCl 2 mg/2 ml Vial ONE (06:39)
[2021-11-05] MEDS ORDERED: Lidocaine 2% Jelly 5 ML TUBE ONE (06:41)
[2021-11-05] MEDS ORDERED: Vancomycin 1 GM/200 ML BAG ONE (06:43)
[2021-11-05] MEDS ORDERED: Tranexamic Acid 1,000 MG/10 ML VIAL ONE (06:43)
[2021-11-05] MEDS ORDERED: Sodium Chloride 0.9% 10 ML ONE (06:43)
[2021-11-05] MEDS ORDERED: Sodium Chloride 0.9% 100 ML ONE (06:43)
[2021-11-05] MEDS ORDERED: ceFAZolin 2 GM/Dextrose 50 ML IVPB ONE (07:36)
[2021-11-05] MEDS ORDERED: Bupivacaine HCl 0.5%/Epinephrine 1:200,000/PF 30 ml Vial ONE (08:09)
[2021-11-05] MEDS ORDERED: Ondansetron PF 4 MG/2 ML Vial ONE (08:09)
[2021-11-05] MEDS ORDERED: PHENYLEPHRINE-NS 100 MCG/ML 10 ML SYRINGE ONE (08:09)
[2021-11-05] MEDS ORDERED: Lidocaine 1% PF 5 ML VIAL ONE (08:09)
[2021-11-05] MEDS ORDERED: Glycopyrrolate 0.2 MG/ML 5 ML SYRINGE ONE (08:09)
[2021-11-05] MEDS ORDERED: PROPOFOL 200 MG/20 ML VIAL ONE (08:09)
[2021-11-05] MEDS ORDERED: Rocuronium Bromide 10 MG/ML (10ML VIAL) ONE (08:09)
[2021-11-05] MEDS ORDERED: Levofloxacin 500 mg/D5W 100 ml Premix Bag ONE (08:28)
[2021-11-05] MEDS ORDERED: Zolpidem Tartrate 5 MG TAB PO PRN ×2 (08:30→23:45)
[2021-11-05] MEDS ORDERED: Ketorolac Tromethamine 30 MG/ML VIAL IVP PRN (08:30)
[2021-11-05] MEDS ORDERED: Promethazine HCl 25 MG/ML VIAL IM PRN ×3 (08:30→23:45)
[2021-11-05] MEDS ORDERED: traMADol HCl 50 MG TAB PO PRN ×2 (08:30)
[2021-11-05] MEDS ORDERED: HYDROcodone/Acetaminophen 5/325 mg Tablet PO PRN ×2 (08:30)
[2021-11-05] MEDS ORDERED: Ropivacaine 0.2% 550 ML 550 ML NERVE BLCK SCH (08:30)
[2021-11-05] MEDS ORDERED: Ondansetron PF 4 MG/2 ML Vial IVP PRN ×2 (08:30→23:45)
[2021-11-05] MEDS ORDERED: Phenylephrine 10 MG/ML VIAL ONE (08:40)
[2021-11-05] MEDS ORDERED: HYDROcodone/Acetaminophen 10/325 mg Tablet PO PRN ×2 (09:40→09:42)
[2021-11-05] MEDS ORDERED: Ondansetron ODT 4 MG TAB PO PRN (09:42)
[2021-11-05] MEDS ORDERED: diphenhydrAMINE 25 MG CAP PO PRN ×2 (09:42→23:45)
[2021-11-05] MEDS ORDERED: Ondansetron HCl/PF 4 MG/2 ML Vial IVP PRN (09:55)
[2021-11-05] MEDS ORDERED: Promethazine HCl 25 MG/ML VIAL IVPB PRN (09:55)
[2021-11-05] MEDS ORDERED: Bupivacaine 0.5% 10 ML VIAL ONE (10:01)
[2021-11-05] MEDS: HumaLOG 300 UNITS/3 ML VIAL SC SCH ×3 (13:55→22:40)
[2021-11-05] MEDS: HYDROcodone/Acetaminophen 10/325 mg Tablet PO PRN ×3 (13:59→22:38)
[2021-11-05] MEDS: Lactated Ringer's 1,000 ML IV SCH (14:03)
[2021-11-05] MEDS ORDERED: DULoxetine 60 MG CAP PO SCH (21:00)
[2021-11-05] MEDS: Cholecalciferol (Vitamin D3) 400 UNITS TAB PO SCH (22:32)
[2021-11-05] MEDS: Lisinopril 20 MG TAB PO SCH (22:32)
[2021-11-05] MEDS: metFORMIN 500 MG TAB PO SCH (22:33)
[2021-11-05] MEDS: predniSONE 5 MG TAB PO SCH (22:33)
[2021-11-05] MEDS: cloNIDine 0.1 MG TAB PO SCH (22:33)
[2021-11-05] MEDS: Folic Acid 1 MG TAB PO SCH (22:34)
[2021-11-05] MEDS ORDERED: DULoxetine 30 MG CAP PO SCH (22:45)
[2021-11-05] MEDS: Alogliptin 25 MG TAB PO SCH (23:33)
[2021-11-05] MEDS: Icosapent Ethyl 1 GM CAPSULE PO SCH (23:34)
[2021-11-05] MEDS: Rosuvastatin 10 MG TAB PO SCH (23:38)
[2021-11-05] MEDS ORDERED: Morphine Sulfate 100 MG in Dextrose 5% in Water 98 ML IV SCH (23:45)
[2021-11-05] MEDS ORDERED: diphenhydrAMINE 50 MG/ML VIAL IM/IV PRN (23:45)
[2021-11-05] MEDS ORDERED: Naloxone HCl 0.4 mg/ml Vial IV PRN (23:45)
[2021-11-06] MEDS: Lactated Ringer's 1,000 ML IV SCH ×2 (05:37→17:46)
[2021-11-06] MEDS ORDERED: Vancomycin 1.5 GRAM/300 ML BAG 1.5 GM in Premix Bag 1 BAG IVPB SCH (07:00)
[2021-11-06] MEDS: predniSONE 5 MG TAB PO SCH ×3 (09:24→21:40)
[2021-11-06] MEDS: metFORMIN 500 MG TAB PO SCH ×2 (09:24→20:47)
[2021-11-06] MEDS: Cholecalciferol (Vitamin D3) 400 UNITS TAB PO SCH ×2 (09:24→20:48)
[2021-11-06] MEDS: FLUoxetine HCl 20 MG CAP PO SCH (09:24)
[2021-11-06] MEDS: Multivit, Therapeutic 1 TAB PO SCH (09:25)
[2021-11-06] MEDS: Magnesium Oxide 400 MG TAB PO SCH (09:25)
[2021-11-06] MEDS: Icosapent Ethyl 1 GM CAPSULE PO SCH (09:25)
[2021-11-06] MEDS: Amlodipine 10 MG TAB PO SCH (12:35)
[2021-11-06] MEDS: HumaLOG 300 UNITS/3 ML VIAL SC SCH ×4 (12:36→20:47)
[2021-11-06] MEDS ORDERED: Acetaminophen 500 MG TAB PO PRN (15:18)
[2021-11-06] MEDS ORDERED: HYDROcodone/Acetaminophen 10/325 mg Tablet PO PRN (15:19)
[2021-11-06] MEDS: Losartan 25 MG TAB PO SCH (20:47)
[2021-11-06] MEDS: Folic Acid 1 MG TAB PO SCH (20:49)
[2021-11-06] MEDS: Rosuvastatin 10 MG TAB PO SCH (20:49)
[2021-11-06] MEDS: cloNIDine 0.1 MG TAB PO SCH (20:49)
[2021-11-06] MEDS: DULoxetine 30 MG CAP PO SCH (20:49)
[2021-11-06] MEDS: Lisinopril 20 MG TAB PO SCH (20:50)
[2021-11-06] MEDS: traMADol HCl 50 MG TAB PO PRN (20:50)
[2021-11-07] MEDS: Icosapent Ethyl 1 GM CAPSULE PO SCH ×3 (00:44→22:16)
[2021-11-07] MEDS: Alogliptin 25 MG TAB PO SCH ×2 (00:44→22:17)
[2021-11-07] MEDS: HumaLOG 300 UNITS/3 ML VIAL SC SCH ×5 (06:17→22:16)
[2021-11-07] MEDS: Lactated Ringer's 1,000 ML IV SCH (06:18)
[2021-11-07] MEDS: FLUoxetine HCl 20 MG CAP PO SCH (08:51)
[2021-11-07] MEDS: predniSONE 5 MG TAB PO SCH ×2 (08:52→20:10)
[2021-11-07] MEDS: Cholecalciferol (Vitamin D3) 400 UNITS TAB PO SCH ×2 (08:53→20:13)
[2021-11-07] MEDS: Amlodipine 10 MG TAB PO SCH (08:53)
[2021-11-07] MEDS: metFORMIN 500 MG TAB PO SCH ×2 (08:54→20:11)
[2021-11-07] MEDS: Multivit, Therapeutic 1 TAB PO SCH (08:54)
[2021-11-07] MEDS: Magnesium Oxide 400 MG TAB PO SCH (08:55)
[2021-11-07] MEDS: Ibuprofen 600 MG TAB PO PRN (10:00)
[2021-11-07 18:39] LABS: #Eosinphils 0.2 thou/uL (0.0-0.7); #Monocytes 1.1 thou/uL (0.11-0.59); #Neutrophils 8.4 thou/uL (1.40-6.50); %Basophils 0.2 % (0.0-1.0); %Eosinophils 1.4 % (0.0-10.0); %Lymphocytes 9.2 % (21.0-51.0); %Monocytes 9.9 % (0.0-10.0); %Neutrophils 79.2 % (42.0-75.0); Hemoglobin 10.5 g/dL (12.0-16.0); Mean Corpuscular HGB CONC 32.9 g/dL (32.0-36.0); Mean Corpuscular Volume 91.2 fL (78.0-98.0); Mean Platelet Volume 6.6 fL (7.4-10.4); Platelet Count 303 thou/uL (130-400); RBC Distribution Width 18.5 % (11.5-14.5); Red Blood Cell (RBC) Count 3.48 mill/uL (4.20-5.40); White Blood Cell (WBC) Count 10.6 thou/uL (4.8-10.8)
[2021-11-07 18:59] LABS: ALT (SGPT) 23 U/L (8-55); AST (SGOT) 20 U/L (5-34); Albumin 3.2 g/dL (3.4-4.8); Alkaline Phosphatase 84 U/L (40-110); Anion Gap 12 mmol/L (10-20); BUN (Urea Nitrogen) 11 mg/dL (9.8-20.1); Bilirubin, Total 0.7 mg/dL (0.2-1.2); Calc. Creatinine Clearance 74 mL/min (70-130); Calcium 8.6 mg/dL (7.8-10.44); Carbon Dioxide 26 mmol/L (23-31); Chloride 100 mmol/L (98-107); Globulin 2.5 g/dL (2.4-3.5); Glucose 184 mg/dL (83-110); Potassium 4.1 mmol/L (3.5-5.1); Protein, Total 5.7 g/dL (5.8-8.1); Sodium 134 mmol/L (136-145)
[2021-11-07 19:34] LABS: SARS-CoV-2 NAA Rapid Test Not Detected (NotDetected)
[2021-11-07] MEDS: DULoxetine 30 MG CAP PO SCH (20:10)
[2021-11-07] MEDS: Folic Acid 1 MG TAB PO SCH (20:11)
[2021-11-07] MEDS: Losartan 25 MG TAB PO SCH (20:12)
[2021-11-07] MEDS: cloNIDine 0.1 MG TAB PO SCH (20:12)
[2021-11-07] MEDS: Lisinopril 20 MG TAB PO SCH (20:12)
[2021-11-07] MEDS: Rosuvastatin 10 MG TAB PO SCH (20:13)
[2021-11-07] MEDS: traMADol HCl 50 MG TAB PO PRN (22:17)
[2021-11-08] MEDS: HumaLOG 300 UNITS/3 ML VIAL SC SCH ×4 (06:16→20:24)
[2021-11-08] MEDS: Icosapent Ethyl 1 GM CAPSULE PO SCH ×2 (09:35→20:15)
[2021-11-08] MEDS: metFORMIN 500 MG TAB PO SCH ×2 (09:35→20:12)
[2021-11-08] MEDS: FLUoxetine HCl 20 MG CAP PO SCH (09:35)
[2021-11-08] MEDS: predniSONE 5 MG TAB PO SCH ×2 (09:36→20:10)
[2021-11-08] MEDS: Cholecalciferol (Vitamin D3) 400 UNITS TAB PO SCH ×2 (09:36→20:12)
[2021-11-08] MEDS: Magnesium Oxide 400 MG TAB PO SCH (09:36)
[2021-11-08] MEDS: Amlodipine 10 MG TAB PO SCH (09:36)
[2021-11-08] MEDS: Multivit, Therapeutic 1 TAB PO SCH (09:36)
[2021-11-08] MEDS: Ibuprofen 600 MG TAB PO PRN ×2 (09:43→18:14)
[2021-11-08] MEDS: Lisinopril 20 MG TAB PO SCH (20:10)
[2021-11-08] MEDS: DULoxetine 30 MG CAP PO SCH (20:11)
[2021-11-08] MEDS: Rosuvastatin 10 MG TAB PO SCH (20:11)
[2021-11-08] MEDS: cloNIDine 0.1 MG TAB PO SCH (20:12)
[2021-11-08] MEDS: Folic Acid 1 MG TAB PO SCH (20:13)
[2021-11-08] MEDS: Alogliptin 25 MG TAB PO SCH (20:14)
[2021-11-08] MEDS: HYDROcodone/Acetaminophen 10/325 mg Tablet PO PRN (23:19)
[2021-11-09] MEDS: Ibuprofen 600 MG TAB PO PRN (03:24)
[2021-11-09] MEDS: HumaLOG 300 UNITS/3 ML VIAL SC SCH ×2 (06:42→12:29)
[2021-11-09] MEDS: FLUoxetine HCl 20 MG CAP PO SCH (09:53)
[2021-11-09] MEDS: metFORMIN 500 MG TAB PO SCH (09:53)
[2021-11-09] MEDS: Magnesium Oxide 400 MG TAB PO SCH (09:54)
[2021-11-09] MEDS: Amlodipine 10 MG TAB PO SCH (09:54)
[2021-11-09] MEDS: Multivit, Therapeutic 1 TAB PO SCH (09:55)
[2021-11-09] MEDS: Cholecalciferol (Vitamin D3) 400 UNITS TAB PO SCH (09:55)
[2021-11-09] MEDS: predniSONE 5 MG TAB PO SCH (09:56)
[2021-11-09] MEDS: Icosapent Ethyl 1 GM CAPSULE PO SCH (09:57)
[2021-11-09 11:34] VITALS: TEMP 98.4
[2021-11-09 11:37] VITALS: BP 135/77
[2021-11-09] MEDS: HYDROcodone/Acetaminophen 10/325 mg Tablet PO PRN (14:11)
== END 2021-11-09 15:16 | disposition home or self-care (01) | DRG 483 ==
LOC: SDC 06:12 → SURG A 09:40 → OBSVTOIN 11-06 12:19
PROVIDERS: ADMIT Orthopaedic Surgery; ATTEND Orthopaedic Surgery
PROC: 0RRJ0JZ Replacement of Right Shoulder Joint with Synthetic Substitute, Open Approach (ICD-10-PCS; principal; 2021-11-05)
PROC: 0LS30ZZ Reposition Right Upper Arm Tendon, Open Approach (ICD-10-PCS; 2021-11-05)
DX: M19.111 Post-traumatic osteoarthritis, right shoulder (principal); J96.01 Acute respiratory failure with hypoxia; Z23 Encounter for immunization; Z20.822 Contact with and (suspected) exposure to COVID-19; M75.101 Unspecified rotator cuff tear or rupture of right shoulder, not specified as traumatic; M75.21 Bicipital tendinitis, right shoulder; E11.9 Type 2 diabetes mellitus without complications; Z96.659 Presence of unspecified artificial knee joint; L40.50 Arthropathic psoriasis, unspecified; E78.5 Hyperlipidemia, unspecified; I10 Essential (primary) hypertension; Z79.899 Other long term (current) drug therapy; Z88.2 Allergy status to sulfonamides; Z88.1 Allergy status to other antibiotic agents; Z88.8 Allergy status to other drugs, medicaments and biological substances; Z91.041 Radiographic dye allergy status; Z79.4 Long term (current) use of insulin; Z90.710 Acquired absence of both cervix and uterus; Z90.49 Acquired absence of other specified parts of digestive tract
CPT/HCPCS: 36415; 36416; 71045; 80053; 83880; 85025; 93005; 93010; 96374; 96375; A4306; C1713; C1776; C1889; G0378; J0690; J1815; J1885; J1956; J2001; J2250; J2274; J2370; J2405; J2704; J2795; J3010; J3370; J3490; J7070; J7120; J7512; U0002

== ENCOUNTER 2022-04-27 11:48 | Inpatient (IN) | payer MEDICARE, BC ==
[2022-04-27] MEDS ORDERED: Vancomycin 1 GM/200 ML BAG ONE (12:18)
[2022-04-27] MEDS ORDERED: Piperacillin/Tazobactam 3.375 GM VIAL ONE (12:18)
[2022-04-27 12:37] LABS: #Eosinphils 0.1 thou/uL (0.0-0.7); #Monocytes 0.9 thou/uL (0.11-0.59); #Neutrophils 10.2 thou/uL (1.40-6.50); %Basophils 0.3 % (0.0-1.0); %Eosinophils 0.9 % (0.0-10.0); %Lymphocytes 15.2 % (21.0-51.0); %Monocytes 6.6 % (0.0-10.0); %Neutrophils 77.1 % (42.0-75.0); Mean Corpuscular HGB CONC 32.3 g/dL (32.0-36.0); Mean Corpuscular Hemoglobin 28.8 pg (27.0-31.0); Mean Corpuscular Volume 89.1 fL (78.0-98.0); Mean Platelet Volume 8.5 fL (7.4-10.4); Platelet Count 303 thou/uL (130-400); RBC Distribution Width 17.5 % (11.5-14.5); Red Blood Cell (RBC) Count 5.22 mill/uL (4.20-5.40); White Blood Cell (WBC) Count 13.2 thou/uL (4.8-10.8)
[2022-04-27 12:52] LABS: ALT (SGPT) 28 U/L (8-55); AST (SGOT) 20 U/L (5-34); Albumin 3.7 g/dL (3.4-4.8); Alkaline Phosphatase 107 U/L (40-110); Anion Gap 19 mmol/L (10-20); BUN (Urea Nitrogen) 33 mg/dL (9.8-20.1); Bilirubin, Total 1.4 mg/dL (0.2-1.2); Calc. Creatinine Clearance 0 mL/min (70-130); Calcium 11.3 mg/dL (7.8-10.44); Carbon Dioxide 24 mmol/L (23-31); Chloride 96 mmol/L (98-107); Estimated GFR 27; Globulin 3.3 g/dL (2.4-3.5); Glucose 388 mg/dL (83-110); Lipase 26 U/L (8-78); Potassium 3.2 mmol/L (3.5-5.1); Sodium 136 mmol/L (136-145)
[2022-04-27 13:41] LABS: CKMB 6.2 ng/mL (0-6.6)
[2022-04-27 13:52] LABS: Bacteria/HPF 4+ HPF (None Seen); Bilirubin Negative (Negative); Blood, Urine Negative (Negative); Clarity Turbid (Clear); Glucose, Urine (Dipstick) 150 mg/dL (Negative); Ketone, Urine Trace mg/dL (Negative); Leukocyte 75 Leu/uL (Negative); Nitrite Negative (Negative); Protein, Urine (Dipstick) 100 mg/dL (Neg-Trace); RBC/HPF 0-3 HPF (0-3); Specific Gravity, Urine 1.027 (1.002-1.036); Squamous Epithelial 0-3 HPF (0-3); Urobilinogen 3 mg/dL (Less than 2); pH, Urine 5.5 (5.0-9.0)
[2022-04-27] MEDS ORDERED: Dexamethasone 10 MG/ML VIAL ONE (15:15)
[2022-04-27] MEDS ORDERED: Ondansetron PF 4 MG/2 ML Vial IVP PRN (15:48)
[2022-04-27] MEDS ORDERED: Ondansetron ODT 4 MG TAB PO PRN (15:48)
[2022-04-27] MEDS ORDERED: Acetaminophen 500 MG TAB PO PRN (15:48)
[2022-04-27] MEDS ORDERED: Dextrose 50% Abboject 50 ML SYRINGE SLOW IVP PRN (15:48)
[2022-04-27] MEDS ORDERED: Cefepime 2 GM VIAL IVPB SCH (15:48)
[2022-04-27] MEDS ORDERED: Dextrose 5% in Water 1,000 ML IV PRN (15:48)
[2022-04-27 16:30] LABS: SARS-CoV-2 NAA Rapid Test DETECTED (NotDetected)
[2022-04-27] MEDS ORDERED: Aspirin 325 MG TAB ONE (16:47)
[2022-04-27 18:31] VITALS: BMI 29.0
[2022-04-27] MEDS: Albuterol 200 PUFF (6.7GM INHALER) INH SCH ×2 (19:00→21:02)
[2022-04-27 19:01] LABS: Lactic Acid 1.6 mmol/L (0.5-2.2)
[2022-04-27] MEDS ORDERED: Cefepime 2 GM in Sodium Chloride 0.9% 100 ML IVPB SCH (20:00)
[2022-04-27] MEDS: Cholecalciferol (Vitamin D3) 400 UNITS TAB PO SCH (20:11)
[2022-04-27] MEDS: Famotidine 20 MG TAB PO SCH (20:11)
[2022-04-27] MEDS: Folic Acid 1 MG TAB PO SCH (20:11)
[2022-04-27] MEDS: Sodium Chloride 0.9% 1,000 ML IV SCH (20:13)
[2022-04-27] MEDS ORDERED: DULoxetine 60 MG CAP PO SCH ×2 (21:00)
[2022-04-27] MEDS: HumaLOG 300 UNITS/3 ML VIAL SC PRN (21:12)
[2022-04-28] MEDS: Sodium Chloride 0.9% 1,000 ML IV SCH ×4 (02:23→21:40)
[2022-04-28] MEDS: HumaLOG 300 UNITS/3 ML VIAL SC PRN ×4 (05:56→21:02)
[2022-04-28 06:06] LABS: #Lymphocytes 0.5 thou/uL (1.20-3.40); #Monocytes 0.3 thou/uL (0.11-0.59); %Basophils 0.4 % (0.0-1.0); %Eosinophils 0.3 % (0.0-10.0); %Lymphocytes 5.1 % (21.0-51.0); %Monocytes 2.6 % (0.0-10.0); %Neutrophils 91.6 % (42.0-75.0); Hemoglobin 11.4 g/dL (12.0-16.0); Mean Corpuscular HGB CONC 31.9 g/dL (32.0-36.0); Mean Corpuscular Hemoglobin 28.9 pg (27.0-31.0); Mean Corpuscular Volume 90.5 fL (78.0-98.0); Mean Platelet Volume 8.1 fL (7.4-10.4); Platelet Count 223 thou/uL (130-400); RBC Distribution Width 17.2 % (11.5-14.5); Red Blood Cell (RBC) Count 3.95 mill/uL (4.20-5.40); White Blood Cell (WBC) Count 9.8 thou/uL (4.8-10.8)
[2022-04-28 06:25] LABS: ALT (SGPT) 21 U/L (8-55); AST (SGOT) 14 U/L (5-34); Alkaline Phosphatase 91 U/L (40-110); Anion Gap 13 mmol/L (10-20); BUN (Urea Nitrogen) 28 mg/dL (9.8-20.1); Bilirubin, Total 0.5 mg/dL (0.2-1.2); Calc. Creatinine Clearance 48 mL/min (70-130); Calcium 9.3 mg/dL (7.8-10.44); Carbon Dioxide 22 mmol/L (23-31); Chloride 104 mmol/L (98-107); Estimated GFR 44; Globulin 2.6 g/dL (2.4-3.5); Glucose 402 mg/dL (83-110); Potassium 3.6 mmol/L (3.5-5.1); Protein, Total 5.6 g/dL (5.8-8.1); Sodium 135 mmol/L (136-145)
[2022-04-28 06:27] LABS: Troponin I 0.069 ng/mL (< 0.028)
[2022-04-28] MEDS ORDERED: Dexamethasone 10 MG/ML VIAL SLOW IVP SCH (09:00)
[2022-04-28] MEDS ORDERED: FLUoxetine HCl 20 MG CAP PO SCH ×2 (09:00)
[2022-04-28] MEDS ORDERED: Enoxaparin Sodium 30 MG/0.3 ML SYRINGE SC SCH (09:00)
[2022-04-28] MEDS: Magnesium Oxide 400 MG TAB PO SCH (09:49)
[2022-04-28] MEDS: Ascorbic Acid 500 mg Chewable Tablet PO SCH (09:49)
[2022-04-28] MEDS: Multivit, Therapeutic 1 TAB PO SCH (09:49)
[2022-04-28] MEDS: Zinc Sulfate 220 MG CAP PO SCH (09:49)
[2022-04-28] MEDS: Cholecalciferol (Vitamin D3) 400 UNITS TAB PO SCH ×2 (09:49→20:57)
[2022-04-28] MEDS: Albuterol 200 PUFF (6.7GM INHALER) INH SCH ×5 (09:50→20:59)
[2022-04-28] MEDS ORDERED: HYDROcodone/Acetaminophen 10/325 mg Tablet PO PRN (17:01)
[2022-04-28] MEDS ORDERED: diphenhydrAMINE 25 MG CAP PO PRN (17:01)
[2022-04-28] MEDS ORDERED: Ondansetron ODT 4 MG TAB PO PRN (17:01)
[2022-04-28] MEDS ORDERED: VANCOMYCIN 1.25 GM/250 ML BAG IVPB SCH ×2 (17:14→21:00)
[2022-04-28] MEDS ORDERED: Communication Order-Pharmacy FS ONE (17:14)
[2022-04-28] MEDS ORDERED: INFLIXIMAB 100 MG/10 ML IV SCH (17:15)
[2022-04-28] MEDS ORDERED: Vancomycin 1.5 GRAM/300 ML BAG 1.5 GM in Premix Bag 1 BAG IVPB SCH (18:15)
[2022-04-28] MEDS ORDERED: Clonidine Hcl [Clonidine Hcl Er] 0.1 MG Tab.Er.12h PO PRN (19:09)
[2022-04-28] MEDS ORDERED: ROMOSOZUMAB AQQG 105 MG/1.17 ML IM SCH (19:15)
[2022-04-28] MEDS: traMADol HCl 50 MG TAB PO PRN (19:46)
[2022-04-28] MEDS ORDERED: Cefepime 1 GM in Sodium Chloride 0.9% 100 ML IVPB SCH (20:00)
[2022-04-28] MEDS: Folic Acid 1 MG TAB PO SCH (20:57)
[2022-04-28] MEDS: Famotidine 20 MG TAB PO SCH (20:57)
[2022-04-28] MEDS: Rosuvastatin 10 MG TAB PO SCH (20:57)
[2022-04-28] MEDS: Fish Oil 1,000 MG CAP PO SCH (20:57)
[2022-04-28] MEDS: predniSONE 5 MG TAB PO SCH (20:58)
[2022-04-28] MEDS: Lisinopril 20 MG TAB PO SCH (20:58)
[2022-04-28] MEDS: Insulin Glargine 30 UNITS/0.3 ML VIAL SC SCH (20:59)
[2022-04-28] MEDS: Alogliptin 6.25 MG TAB PO SCH (21:00)
[2022-04-28] MEDS: HumaLOG 300 UNITS/3 ML VIAL SC SCH (21:35)
[2022-04-28] MEDS: Benzonatate 100 MG CAP PO PRN (21:40)
[2022-04-28] MEDS: guaiFENesin/DM ER PO PRN (23:32)
[2022-04-29] MEDS: traMADol HCl 50 MG TAB PO PRN (02:49)
[2022-04-29] MEDS: HumaLOG 300 UNITS/3 ML VIAL SC PRN ×4 (06:23→20:38)
[2022-04-29] MEDS: Ascorbic Acid 500 mg Chewable Tablet PO SCH (07:55)
[2022-04-29] MEDS: Magnesium Oxide 400 MG TAB PO SCH (07:55)
[2022-04-29] MEDS: Aspirin Chewable 81 MG TAB PO SCH (07:55)
[2022-04-29] MEDS: Multivit, Therapeutic 1 TAB PO SCH (07:55)
[2022-04-29] MEDS: Fish Oil 1,000 MG CAP PO SCH ×2 (07:55→20:37)
[2022-04-29] MEDS: Amlodipine 10 MG TAB PO SCH (07:56)
[2022-04-29] MEDS: Zinc Sulfate 220 MG CAP PO SCH (07:56)
[2022-04-29] MEDS: Cholecalciferol (Vitamin D3) 400 UNITS TAB PO SCH ×2 (07:56→20:36)
[2022-04-29] MEDS: predniSONE 5 MG TAB PO SCH ×2 (07:56→20:36)
[2022-04-29] MEDS: Albuterol 200 PUFF (6.7GM INHALER) INH SCH ×4 (07:57→20:36)
[2022-04-29] MEDS: Enoxaparin Sodium 40 MG/0.4 ML SYRINGE SC SCH (07:57)
[2022-04-29] MEDS: HumaLOG 300 UNITS/3 ML VIAL SC SCH ×4 (07:58→20:53)
[2022-04-29] MEDS: Sodium Chloride 0.9% 1,000 ML IV SCH ×2 (07:59→17:54)
[2022-04-29] MEDS ORDERED: Cefepime 1 GM in Sodium Chloride 0.9% 100 ML IVPB SCH (11:45)
[2022-04-29] MEDS: VANCOMYCIN 1.25 GM/250 ML BAG 1.25 GM in Premix Bag 1 BAG IVPB SCH (18:52)
[2022-04-29] MEDS: guaiFENesin/DM ER PO PRN (20:00)
[2022-04-29] MEDS: Alogliptin 6.25 MG TAB PO SCH (20:36)
[2022-04-29] MEDS: Folic Acid 1 MG TAB PO SCH (20:36)
[2022-04-29] MEDS: Cefepime 1 GM in Sodium Chloride 0.9% 100 ML IVPB SCH (20:36)
[2022-04-29] MEDS: Insulin Glargine 30 UNITS/0.3 ML VIAL SC SCH (20:37)
[2022-04-29] MEDS: Rosuvastatin 10 MG TAB PO SCH (20:37)
[2022-04-29] MEDS: Lisinopril 20 MG TAB PO SCH (20:37)
[2022-04-30 07:45] LABS: #Eosinphils 0.1 thou/uL (0.0-0.7); #Monocytes 0.8 thou/uL (0.11-0.59); #Neutrophils 7.7 thou/uL (1.40-6.50); %Basophils 0.5 % (0.0-1.0); %Eosinophils 0.9 % (0.0-10.0); %Lymphocytes 10.8 % (21.0-51.0); %Monocytes 8.3 % (0.0-10.0); %Neutrophils 79.4 % (42.0-75.0); Hemoglobin 10.2 g/dL (12.0-16.0); Mean Corpuscular HGB CONC 31.8 g/dL (32.0-36.0); Mean Corpuscular Hemoglobin 28.7 pg (27.0-31.0); Mean Corpuscular Volume 90.2 fL (78.0-98.0); Mean Platelet Volume 7.8 fL (7.4-10.4); Platelet Count 193 thou/uL (130-400); RBC Distribution Width 17.7 % (11.5-14.5); Red Blood Cell (RBC) Count 3.57 mill/uL (4.20-5.40); White Blood Cell (WBC) Count 9.6 thou/uL (4.8-10.8)
[2022-04-30] MEDS: Sodium Chloride 0.9% 1,000 ML IV SCH ×2 (07:46→13:31)
[2022-04-30 08:00] LABS: Anion Gap 11 mmol/L (10-20); BUN (Urea Nitrogen) 18 mg/dL (9.8-20.1); Calc. Creatinine Clearance 75 mL/min (70-130); Calcium 8.5 mg/dL (7.8-10.44); Carbon Dioxide 22 mmol/L (23-31); Chloride 113 mmol/L (98-107); Estimated GFR 68; Glucose 131 mg/dL (83-110); Potassium 3.8 mmol/L (3.5-5.1); Sodium 142 mmol/L (136-145)
[2022-04-30] MEDS: HumaLOG 300 UNITS/3 ML VIAL SC SCH ×4 (08:24→21:17)
[2022-04-30] MEDS: Cefepime 1 GM in Sodium Chloride 0.9% 100 ML IVPB SCH ×2 (08:25→21:16)
[2022-04-30] MEDS: Aspirin Chewable 81 MG TAB PO SCH (08:27)
[2022-04-30] MEDS: Ascorbic Acid 500 mg Chewable Tablet PO SCH (08:28)
[2022-04-30] MEDS: Magnesium Oxide 400 MG TAB PO SCH (08:29)
[2022-04-30] MEDS: Amlodipine 10 MG TAB PO SCH (08:29)
[2022-04-30] MEDS: predniSONE 5 MG TAB PO SCH ×2 (08:30→21:17)
[2022-04-30] MEDS: Zinc Sulfate 220 MG CAP PO SCH (08:34)
[2022-04-30] MEDS: Fish Oil 1,000 MG CAP PO SCH ×2 (08:35→21:17)
[2022-04-30] MEDS: Multivit, Therapeutic 1 TAB PO SCH (08:36)
[2022-04-30] MEDS: Enoxaparin Sodium 40 MG/0.4 ML SYRINGE SC SCH (08:37)
[2022-04-30] MEDS: Cholecalciferol (Vitamin D3) 400 UNITS TAB PO SCH ×2 (08:38→21:17)
[2022-04-30] MEDS: Albuterol 200 PUFF (6.7GM INHALER) INH SCH ×4 (09:37→21:16)
[2022-04-30 17:36] LABS: Vancomycin, Trough 11.8 ug/mL
[2022-04-30] MEDS: Vancomycin 1.5 GRAM/300 ML BAG 1.5 GM in Premix Bag 1 BAG IVPB SCH (18:44)
[2022-04-30] MEDS: VANCOMYCIN 1.25 GM/250 ML BAG 1.25 GM in Premix Bag 1 BAG IVPB SCH (18:45)
[2022-04-30] MEDS: Insulin Glargine 30 UNITS/0.3 ML VIAL SC SCH (21:16)
[2022-04-30] MEDS: Lisinopril 20 MG TAB PO SCH (21:17)
[2022-04-30] MEDS: Folic Acid 1 MG TAB PO SCH (21:17)
[2022-04-30] MEDS: Rosuvastatin 10 MG TAB PO SCH (21:17)
[2022-04-30] MEDS: Benzonatate 100 MG CAP PO PRN (21:17)
[2022-04-30] MEDS: Alogliptin 6.25 MG TAB PO SCH (21:18)
[2022-05-01] MEDS: Benzonatate 100 MG CAP PO PRN ×2 (04:08→10:54)
[2022-05-01 05:35] LABS: Anion Gap 11 mmol/L (10-20); BUN (Urea Nitrogen) 14 mg/dL (9.8-20.1); Calc. Creatinine Clearance 83 mL/min (70-130); Calcium 8.6 mg/dL (7.8-10.44); Carbon Dioxide 26 mmol/L (23-31); Chloride 108 mmol/L (98-107); Estimated GFR 77; Glucose 105 mg/dL (83-110); Potassium 3.3 mmol/L (3.5-5.1); Sodium 142 mmol/L (136-145)
[2022-05-01 05:36] LABS: Band 5 % (5-11); Eosinophils 2 % (0-10); Hemoglobin 10.8 g/dL (12.0-16.0); Lymphocytes 10 % (21-51); MDiff Complete? YES; Mean Corpuscular HGB CONC 33.5 g/dL (32.0-36.0); Mean Corpuscular Hemoglobin 30.3 pg (27.0-31.0); Mean Corpuscular Volume 90.5 fL (78.0-98.0); Mean Platelet Volume 7.5 fL (7.4-10.4); Metamyelocyte 1 % (0-0); Monocytes 8 % (0-10); Myelocyte 4 % (0-0); Neutrophil 70 % (42-75); Platelet Count 212 thou/uL (130-400); RBC Distribution Width 17.5 % (11.5-14.5); Red Blood Cell (RBC) Count 3.56 mill/uL (4.20-5.40); White Blood Cell (WBC) Count 8.7 thou/uL (4.8-10.8)
[2022-05-01] MEDS: HumaLOG 300 UNITS/3 ML VIAL SC SCH ×4 (07:30→21:43)
[2022-05-01] MEDS ORDERED: Potassium Chloride 20 MEQ TAB PO SCH (10:00)
[2022-05-01] MEDS: Magnesium Oxide 400 MG TAB PO SCH (10:28)
[2022-05-01] MEDS: Enoxaparin Sodium 40 MG/0.4 ML SYRINGE SC SCH (10:28)
[2022-05-01] MEDS: Cefepime 1 GM in Sodium Chloride 0.9% 100 ML IVPB SCH ×3 (10:28→21:39)
[2022-05-01] MEDS: Aspirin Chewable 81 MG TAB PO SCH (10:28)
[2022-05-01] MEDS: predniSONE 5 MG TAB PO SCH ×2 (10:28→21:40)
[2022-05-01] MEDS: Multivit, Therapeutic 1 TAB PO SCH (10:29)
[2022-05-01] MEDS: Ascorbic Acid 500 mg Chewable Tablet PO SCH (10:29)
[2022-05-01] MEDS: Zinc Sulfate 220 MG CAP PO SCH (10:29)
[2022-05-01] MEDS: Fish Oil 1,000 MG CAP PO SCH ×2 (10:29→21:43)
[2022-05-01] MEDS: Cholecalciferol (Vitamin D3) 400 UNITS TAB PO SCH ×2 (10:29→21:39)
[2022-05-01] MEDS: Amlodipine 10 MG TAB PO SCH (10:30)
[2022-05-01] MEDS: Albuterol 200 PUFF (6.7GM INHALER) INH SCH ×4 (10:30→21:32)
[2022-05-01] MEDS: Vancomycin 1.5 GRAM/300 ML BAG 1.5 GM in Premix Bag 1 BAG IVPB SCH (17:56)
[2022-05-01] MEDS: Alogliptin 6.25 MG TAB PO SCH (21:39)
[2022-05-01] MEDS: Lisinopril 20 MG TAB PO SCH (21:39)
[2022-05-01] MEDS: Rosuvastatin 10 MG TAB PO SCH (21:40)
[2022-05-01] MEDS: Folic Acid 1 MG TAB PO SCH (21:42)
[2022-05-01] MEDS: Insulin Glargine 30 UNITS/0.3 ML VIAL SC SCH (21:44)
[2022-05-02] MEDS: HumaLOG 300 UNITS/3 ML VIAL SC SCH ×4 (09:29→22:18)
[2022-05-02] MEDS: Cefepime 1 GM in Sodium Chloride 0.9% 100 ML IVPB SCH ×2 (09:31→22:56)
[2022-05-02] MEDS: Enoxaparin Sodium 40 MG/0.4 ML SYRINGE SC SCH (09:31)
[2022-05-02] MEDS: Aspirin Chewable 81 MG TAB PO SCH (09:31)
[2022-05-02] MEDS: Cholecalciferol (Vitamin D3) 400 UNITS TAB PO SCH ×2 (09:32→22:13)
[2022-05-02] MEDS: Ascorbic Acid 500 mg Chewable Tablet PO SCH (09:32)
[2022-05-02] MEDS: Albuterol 200 PUFF (6.7GM INHALER) INH SCH ×4 (09:32→22:19)
[2022-05-02] MEDS: Zinc Sulfate 220 MG CAP PO SCH (09:32)
[2022-05-02] MEDS: Benzonatate 100 MG CAP PO PRN (09:32)
[2022-05-02] MEDS: Multivit, Therapeutic 1 TAB PO SCH (09:32)
[2022-05-02] MEDS: predniSONE 5 MG TAB PO SCH ×2 (09:32→22:14)
[2022-05-02] MEDS: Magnesium Oxide 400 MG TAB PO SCH (09:32)
[2022-05-02] MEDS: Amlodipine 10 MG TAB PO SCH (09:32)
[2022-05-02] MEDS: Fish Oil 1,000 MG CAP PO SCH ×2 (09:35→22:13)
[2022-05-02] MEDS ORDERED: Polyethylene Glycol 3350 17 GM Packet PO SCH (13:00)
[2022-05-02 17:27] LABS: Vancomycin, Trough 11.5 ug/mL
[2022-05-02] MEDS: Vancomycin 1.5 GRAM/300 ML BAG 1.5 GM in Premix Bag 1 BAG IVPB SCH (17:55)
[2022-05-02] MEDS: Rosuvastatin 10 MG TAB PO SCH (22:13)
[2022-05-02] MEDS: Folic Acid 1 MG TAB PO SCH (22:13)
[2022-05-02] MEDS: Senokot S 8.6-50 MG TAB PO SCH (22:13)
[2022-05-02] MEDS: Lisinopril 20 MG TAB PO SCH (22:13)
[2022-05-02] MEDS: Insulin Glargine 30 UNITS/0.3 ML VIAL SC SCH (22:16)
[2022-05-02] MEDS: Alogliptin 6.25 MG TAB PO SCH (22:55)
[2022-05-03] MEDS: HumaLOG 300 UNITS/3 ML VIAL SC SCH ×2 (07:30→11:48)
[2022-05-03] MEDS ORDERED: Polyethylene Glycol 3350 17 GM Packet PO SCH (09:00)
[2022-05-03] MEDS: Cefepime 1 GM in Sodium Chloride 0.9% 100 ML IVPB SCH (09:01)
[2022-05-03] MEDS: Ascorbic Acid 500 mg Chewable Tablet PO SCH (09:02)
[2022-05-03] MEDS: Aspirin Chewable 81 MG TAB PO SCH (09:02)
[2022-05-03] MEDS: predniSONE 5 MG TAB PO SCH (09:02)
[2022-05-03] MEDS: Enoxaparin Sodium 40 MG/0.4 ML SYRINGE SC SCH (09:03)
[2022-05-03] MEDS: Multivit, Therapeutic 1 TAB PO SCH (09:03)
[2022-05-03] MEDS: Cholecalciferol (Vitamin D3) 400 UNITS TAB PO SCH (09:03)
[2022-05-03] MEDS: Magnesium Oxide 400 MG TAB PO SCH (09:03)
[2022-05-03] MEDS: Senokot S 8.6-50 MG TAB PO SCH (09:03)
[2022-05-03] MEDS: Zinc Sulfate 220 MG CAP PO SCH (09:03)
[2022-05-03] MEDS: Amlodipine 10 MG TAB PO SCH (09:05)
[2022-05-03] MEDS: Albuterol 200 PUFF (6.7GM INHALER) INH SCH ×2 (09:06→13:48)
[2022-05-03] MEDS: Fish Oil 1,000 MG CAP PO SCH (09:30)
[2022-05-03 12:08] VITALS: BP 132/77; TEMP 98.1
[2022-05-03] MEDS ORDERED: VANCOMYCIN 1.75 GM/500 ML BAG 1.75 GM in Premix Bag 1 BAG IVPB SCH (18:00)
[2022-05-05] MEDS ORDERED: [UNRECOGNIZED DRUG - OTHER] IM SCH (09:00)
== END 2022-05-03 15:59 | disposition home or self-care (01) | DRG 871 ==
LOC: ERS 11:48 → ERHOLD 13:45 → IMCU/EMU 17:39 → SJJU 04-29 22:01
PROVIDERS: ADMIT Family Medicine; ATTEND Family Medicine
PROC: 3E03329 Introduction of Other Anti-infective into Peripheral Vein, Percutaneous Approach (ICD-10-PCS; principal; 2022-04-27)
PROC: 8E0ZXY6 Isolation (ICD-10-PCS; 2022-04-27)
DX: A41.89 Other specified sepsis (principal); R65.21 Severe sepsis with septic shock; U07.1 COVID-19; J12.82 Pneumonia due to coronavirus disease 2019; J96.01 Acute respiratory failure with hypoxia; E27.1 Primary adrenocortical insufficiency; N17.9 Acute kidney failure, unspecified; N39.0 Urinary tract infection, site not specified; E66.9 Obesity, unspecified; F32.A Depression, unspecified; M19.90 Unspecified osteoarthritis, unspecified site; E78.00 Pure hypercholesterolemia, unspecified; E83.52 Hypercalcemia; E11.22 Type 2 diabetes mellitus with diabetic chronic kidney disease; I12.9 Hypertensive chronic kidney disease with stage 1 through stage 4 chronic kidney disease, or unspecified chronic kidney disease; E86.0 Dehydration; E11.65 Type 2 diabetes mellitus with hyperglycemia; G47.33 Obstructive sleep apnea (adult) (pediatric); N18.30 Chronic kidney disease, stage 3 unspecified; Z96.652 Presence of left artificial knee joint; Z68.31 Body mass index [BMI] 31.0-31.9, adult; Z88.2 Allergy status to sulfonamides; Z91.041 Radiographic dye allergy status; Z88.1 Allergy status to other antibiotic agents; Z88.8 Allergy status to other drugs, medicaments and biological substances; Z79.84 Long term (current) use of oral hypoglycemic drugs; Z79.899 Other long term (current) drug therapy; Z79.51 Long term (current) use of inhaled steroids; Z79.4 Long term (current) use of insulin; Z79.82 Long term (current) use of aspirin; Z90.49 Acquired absence of other specified parts of digestive tract; Z98.890 Other specified postprocedural states; Z90.09 Acquired absence of other part of head and neck; Z99.89 Dependence on other enabling machines and devices
CPT/HCPCS: 36415; 36416; 71045; 74176; 80048; 80053; 80202; 81003; 81015; 82550; 82553; 83605; 83690; 84145; 84484; 85025; 87040; 87077; 87086; 87149; 87186; 93005; 94760; 96361; 96365; 96375; J0692; J1100; J1650; J1815; J1956; J2543; J3370; J3490; J7050; J7512

== ENCOUNTER 2022-05-30 18:16 | Inpatient (IN) | payer MEDICARE, BC ==
[2022-05-30 19:43] LABS: #Eosinphils 0.3 thou/uL (0.0-0.7); #Lymphocytes 1.6 thou/uL (1.20-3.40); #Monocytes 0.9 thou/uL (0.11-0.59); #Neutrophils 6.1 thou/uL (1.40-6.50); %Basophils 0.4 % (0.0-1.0); %Eosinophils 3.2 % (0.0-10.0); %Lymphocytes 18.3 % (21.0-51.0); %Monocytes 9.7 % (0.0-10.0); %Neutrophils 68.4 % (42.0-75.0); Hemoglobin 12.1 g/dL (12.0-16.0); Mean Corpuscular HGB CONC 32.6 g/dL (32.0-36.0); Mean Corpuscular Hemoglobin 29.2 pg (27.0-31.0); Mean Corpuscular Volume 89.7 fL (78.0-98.0); Mean Platelet Volume 7.6 fL (7.4-10.4); Platelet Count 269 thou/uL (130-400); RBC Distribution Width 18.3 % (11.5-14.5); Red Blood Cell (RBC) Count 4.14 mill/uL (4.20-5.40); White Blood Cell (WBC) Count 8.9 thou/uL (4.8-10.8)
[2022-05-30 20:12] LABS: ALT (SGPT) 16 U/L (8-55); AST (SGOT) 13 U/L (5-34); Albumin 3.3 g/dL (3.4-4.8); Alkaline Phosphatase 99 U/L (40-110); Anion Gap 17 mmol/L (10-20); BUN (Urea Nitrogen) 17 mg/dL (9.8-20.1); Bilirubin, Total 0.5 mg/dL (0.2-1.2); Calc. Creatinine Clearance 0 mL/min (70-130); Calcium 9.3 mg/dL (7.8-10.44); Carbon Dioxide 23 mmol/L (23-31); Chloride 101 mmol/L (98-107); Estimated GFR 52; Globulin 2.6 g/dL (2.4-3.5); Glucose 213 mg/dL (83-110); Potassium 3.3 mmol/L (3.5-5.1); Protein, Total 5.9 g/dL (5.8-8.1); Sodium 138 mmol/L (136-145)
[2022-05-30 20:32] LABS: Bacteria/HPF None Seen HPF (None Seen); Bilirubin Negative (Negative); Blood, Urine Negative (Negative); Clarity Clear (Clear); Glucose, Urine (Dipstick) 70 mg/dL (Negative); Ketone, Urine Negative (Negative); Leukocyte Negative Leu/uL (Negative); Nitrite Negative (Negative); Protein, Urine (Dipstick) 50 mg/dL (Neg-Trace); RBC/HPF 0-3 HPF (0-3); Specific Gravity, Urine 1.019 (1.002-1.036); Squamous Epithelial None Seen HPF (0-3); Urobilinogen Normal mg/dL (Less than 2); WBC/HPF 0-3 HPF (0-3); pH, Urine 5.5 (5.0-9.0)
[2022-05-31] MEDS ORDERED: Ondansetron ODT 4 MG TAB SL PRN (01:15)
[2022-05-31] MEDS ORDERED: Ondansetron PF 4 MG/2 ML Vial IVP PRN (01:15)
[2022-05-31 01:47] VITALS: BMI 30.1
[2022-05-31] MEDS ORDERED: Dextrose 5% in Water 1,000 ML IV PRN (02:00)
[2022-05-31] MEDS ORDERED: Dextrose 50% Abboject 50 ML SYRINGE IVP PRN (02:00)
[2022-05-31] MEDS: HumaLOG 300 UNITS/3 ML VIAL SC PRN ×3 (02:10→21:20)
[2022-05-31] MEDS ORDERED: Acetaminophen 650 MG Suppository PR PRN (03:29)
[2022-05-31] MEDS ORDERED: Acetaminophen 325 MG TAB PO PRN (03:29)
[2022-05-31] MEDS ORDERED: Electrolyte Replacement Protocol 1 EACH FS SCH ×2 (03:45→18:00)
[2022-05-31 06:02] LABS: Hemoglobin A1c 9.5 % (4.0-6.0)
[2022-05-31 06:05] LABS: Magnesium 1.6 mg/dL (1.6-2.6); Phosphorus 3.5 mg/dL (2.3-4.7)
[2022-05-31] MEDS ORDERED: Potassium Chloride 20 MEQ TAB PO SCH (08:00)
[2022-05-31] MEDS ORDERED: Magnesium 2 GM/50 ML(in water) 2 GM in Premix Bag 1 BAG IVPB SCH (09:00)
[2022-05-31] MEDS ORDERED: Vancomycin 1.5 GRAM/300 ML BAG 1.5 GM in Premix Bag 1 BAG IVPB SCH (09:15)
[2022-05-31] MEDS: Enoxaparin Sodium 40 MG/0.4 ML SYRINGE SC SCH (09:32)
[2022-05-31] MEDS: predniSONE 5 MG TAB PO SCH ×2 (09:33→21:18)
[2022-05-31] MEDS: Aspirin Chewable 81 MG TAB PO SCH (09:33)
[2022-05-31] MEDS: valACYclovir 500 MG TAB PO SCH ×2 (09:33→21:19)
[2022-05-31] MEDS: Amlodipine 10 MG TAB PO SCH (09:34)
[2022-05-31] MEDS: FLUoxetine HCl 20 MG CAP PO SCH (09:34)
[2022-05-31] MEDS: Cefepime 2 GM in Sodium Chloride 0.9% 100 ML IVPB SCH ×2 (11:33→21:17)
[2022-05-31] MEDS ORDERED: Gabapentin 300 MG CAP PO SCH (12:15)
[2022-05-31] MEDS: Nystatin Powder 15 GM BOT TOP PRN (21:17)
[2022-05-31] MEDS: Folic Acid 1 MG TAB PO SCH (21:19)
[2022-05-31] MEDS: DULoxetine 30 MG CAP PO SCH (21:20)
[2022-05-31] MEDS: Insulin Glargine 30 UNITS/0.3 ML VIAL SC SCH (21:20)
[2022-06-01] MEDS ORDERED: diphenhydrAMINE 25 MG CAP PO SCH (01:15)
[2022-06-01] MEDS: HumaLOG 300 UNITS/3 ML VIAL SC PRN ×4 (06:28→21:20)
[2022-06-01] MEDS: Nystatin Powder 15 GM BOT TOP PRN (09:14)
[2022-06-01] MEDS: valACYclovir 500 MG TAB PO SCH ×2 (09:15→21:19)
[2022-06-01] MEDS: Cefepime 2 GM in Sodium Chloride 0.9% 100 ML IVPB SCH ×2 (09:16→21:19)
[2022-06-01] MEDS: Aspirin Chewable 81 MG TAB PO SCH (09:16)
[2022-06-01] MEDS: predniSONE 5 MG TAB PO SCH ×2 (09:16→21:19)
[2022-06-01] MEDS: Amlodipine 10 MG TAB PO SCH (09:16)
[2022-06-01] MEDS: Enoxaparin Sodium 40 MG/0.4 ML SYRINGE SC SCH (09:17)
[2022-06-01] MEDS: Acetaminophen 325 MG TAB PO PRN ×2 (09:24→21:18)
[2022-06-01] MEDS: FLUoxetine HCl 20 MG CAP PO SCH (09:24)
[2022-06-01] MEDS: Vancomycin 1 GM in Premix Bag 1 BAG IVPB SCH (10:49)
[2022-06-01] MEDS ORDERED: CLONIDINE ER 0.1 MG TAB PO PRN (11:01)
[2022-06-01 11:12] LABS: #Eosinphils 0.2 thou/uL (0.0-0.7); #Lymphocytes 1.4 thou/uL (1.20-3.40); #Monocytes 0.7 thou/uL (0.11-0.59); #Neutrophils 5.8 thou/uL (1.40-6.50); %Basophils 0.4 % (0.0-1.0); %Eosinophils 2.2 % (0.0-10.0); %Lymphocytes 17.4 % (21.0-51.0); %Neutrophils 71.9 % (42.0-75.0); Hemoglobin 11.8 g/dL (12.0-16.0); Mean Corpuscular HGB CONC 31.6 g/dL (32.0-36.0); Mean Corpuscular Hemoglobin 28.5 pg (27.0-31.0); Mean Corpuscular Volume 90.3 fL (78.0-98.0); Mean Platelet Volume 7.1 fL (7.4-10.4); Platelet Count 293 thou/uL (130-400); RBC Distribution Width 18.4 % (11.5-14.5); Red Blood Cell (RBC) Count 4.15 mill/uL (4.20-5.40); White Blood Cell (WBC) Count 8.1 thou/uL (4.8-10.8)
[2022-06-01 11:29] LABS: Anion Gap 15 mmol/L (10-20); BUN (Urea Nitrogen) 14 mg/dL (9.8-20.1); Calc. Creatinine Clearance 72 mL/min (70-130); Calcium 8.4 mg/dL (7.8-10.44); Carbon Dioxide 21 mmol/L (23-31); Chloride 104 mmol/L (98-107); Estimated GFR 74; Glucose 191 mg/dL (83-110); Potassium 3.3 mmol/L (3.5-5.1); Sodium 137 mmol/L (136-145)
[2022-06-01] MEDS: Sodium Chloride 0.9% 1,000 ML IV SCH ×2 (12:35→21:29)
[2022-06-01] MEDS ORDERED: Potassium Chloride 20 MEQ TAB PO SCH (13:45)
[2022-06-01 20:28] LABS: Potassium 4.2 mmol/L (3.5-5.1)
[2022-06-01] MEDS: Folic Acid 1 MG TAB PO SCH (21:20)
[2022-06-01] MEDS: Lisinopril 20 MG TAB PO SCH (21:20)
[2022-06-01] MEDS: Insulin Glargine 30 UNITS/0.3 ML VIAL SC SCH (21:20)
[2022-06-01] MEDS: DULoxetine 30 MG CAP PO SCH (21:20)
[2022-06-01] MEDS ORDERED: Bisacodyl 5 MG TAB PO PRN (23:44)
[2022-06-01] MEDS ORDERED: Senokot S 8.6-50 MG TAB PO PRN (23:44)
[2022-06-02] MEDS ORDERED: Morphine 2 MG/ML VIAL SLOW IVP PRN (02:47)
[2022-06-02] MEDS: HYDROcodone/Acetaminophen 5/325 mg Tablet PO PRN ×3 (03:59→20:42)
[2022-06-02 06:12] LABS: #Eosinphils 0.2 thou/uL (0.0-0.7); #Lymphocytes 1.5 thou/uL (1.20-3.40); #Monocytes 0.7 thou/uL (0.11-0.59); #Neutrophils 5.1 thou/uL (1.40-6.50); %Basophils 0.6 % (0.0-1.0); %Eosinophils 2.7 % (0.0-10.0); %Lymphocytes 19.9 % (21.0-51.0); %Monocytes 8.7 % (0.0-10.0); %Neutrophils 68.1 % (42.0-75.0); Hemoglobin 12.3 g/dL (12.0-16.0); Mean Corpuscular HGB CONC 32.9 g/dL (32.0-36.0); Mean Corpuscular Hemoglobin 29.3 pg (27.0-31.0); Mean Corpuscular Volume 89.3 fL (78.0-98.0); Mean Platelet Volume 7.3 fL (7.4-10.4); Platelet Count 293 thou/uL (130-400); RBC Distribution Width 18.7 % (11.5-14.5); White Blood Cell (WBC) Count 7.5 thou/uL (4.8-10.8)
[2022-06-02 06:31] LABS: Anion Gap 16 mmol/L (10-20); BUN (Urea Nitrogen) 12 mg/dL (9.8-20.1); Calc. Creatinine Clearance 79 mL/min (70-130); Calcium 8.4 mg/dL (7.8-10.44); Carbon Dioxide 21 mmol/L (23-31); Chloride 105 mmol/L (98-107); Estimated GFR 82; Glucose 170 mg/dL (83-110); Potassium 3.6 mmol/L (3.5-5.1); Sodium 138 mmol/L (136-145)
[2022-06-02] MEDS: HumaLOG 300 UNITS/3 ML VIAL SC PRN ×4 (06:39→20:45)
[2022-06-02] MEDS: Sodium Chloride 0.9% 1,000 ML IV SCH ×2 (08:32→20:41)
[2022-06-02] MEDS: Cefepime 2 GM in Sodium Chloride 0.9% 100 ML IVPB SCH (08:32)
[2022-06-02] MEDS: Amlodipine 10 MG TAB PO SCH (08:33)
[2022-06-02] MEDS: valACYclovir 500 MG TAB PO SCH ×2 (08:33→20:45)
[2022-06-02] MEDS: Aspirin Chewable 81 MG TAB PO SCH (08:33)
[2022-06-02] MEDS: FLUoxetine HCl 20 MG CAP PO SCH (08:33)
[2022-06-02] MEDS: predniSONE 5 MG TAB PO SCH ×2 (08:34→20:44)
[2022-06-02] MEDS: Enoxaparin Sodium 40 MG/0.4 ML SYRINGE SC SCH (08:35)
[2022-06-02 09:40] LABS: Vancomycin, Trough 6.5 ug/mL
[2022-06-02] MEDS: Vancomycin 1 GM in Premix Bag 1 BAG IVPB SCH (10:24)
[2022-06-02] MEDS ORDERED: Vancomycin 1.5 GRAM/300 ML BAG 1.5 GM in Premix Bag 1 BAG IVPB SCH (11:00)
[2022-06-02] MEDS: DULoxetine 30 MG CAP PO SCH (20:44)
[2022-06-02] MEDS: Lisinopril 20 MG TAB PO SCH (20:44)
[2022-06-02] MEDS: Folic Acid 1 MG TAB PO SCH (20:44)
[2022-06-02] MEDS: Pregabalin 25 MG CAP PO SCH (20:45)
[2022-06-02] MEDS: Insulin Glargine 30 UNITS/0.3 ML VIAL SC SCH (20:45)
[2022-06-03 05:17] LABS: #Basophils 0.1 thou/uL (0.0-0.2); #Eosinphils 0.3 thou/uL (0.0-0.7); #Lymphocytes 1.7 thou/uL (1.20-3.40); #Monocytes 0.7 thou/uL (0.11-0.59); #Neutrophils 4.6 thou/uL (1.40-6.50); %Basophils 1.1 % (0.0-1.0); %Eosinophils 4.4 % (0.0-10.0); %Lymphocytes 22.7 % (21.0-51.0); %Neutrophils 62.8 % (42.0-75.0); Hemoglobin 11.5 g/dL (12.0-16.0); Mean Corpuscular Hemoglobin 29.3 pg (27.0-31.0); Mean Platelet Volume 6.9 fL (7.4-10.4); Platelet Count 273 thou/uL (130-400); RBC Distribution Width 17.9 % (11.5-14.5); Red Blood Cell (RBC) Count 3.93 mill/uL (4.20-5.40); White Blood Cell (WBC) Count 7.3 thou/uL (4.8-10.8)
[2022-06-03 05:41] LABS: Anion Gap 14 mmol/L (10-20); BUN (Urea Nitrogen) 11 mg/dL (9.8-20.1); Calc. Creatinine Clearance 85 mL/min (70-130); Calcium 7.9 mg/dL (7.8-10.44); Carbon Dioxide 20 mmol/L (23-31); Chloride 106 mmol/L (98-107); Estimated GFR 89; Glucose 150 mg/dL (83-110); Potassium 3.3 mmol/L (3.5-5.1); Sodium 137 mmol/L (136-145)
[2022-06-03] MEDS ORDERED: Potassium Chloride 20 MEQ TAB PO SCH (08:00)
[2022-06-03] MEDS: Aspirin Chewable 81 MG TAB PO SCH (09:35)
[2022-06-03] MEDS: valACYclovir 500 MG TAB PO SCH (09:35)
[2022-06-03] MEDS: Amlodipine 10 MG TAB PO SCH (09:35)
[2022-06-03] MEDS: Enoxaparin Sodium 40 MG/0.4 ML SYRINGE SC SCH (09:35)
[2022-06-03] MEDS: predniSONE 5 MG TAB PO SCH (09:35)
[2022-06-03] MEDS: FLUoxetine HCl 20 MG CAP PO SCH (09:36)
[2022-06-03] MEDS: Sodium Chloride 0.9% 1,000 ML IV SCH ×2 (09:37→12:17)
[2022-06-03] MEDS: Pregabalin 25 MG CAP PO SCH (09:37)
[2022-06-03] MEDS: HYDROcodone/Acetaminophen 5/325 mg Tablet PO PRN ×2 (10:25→15:57)
[2022-06-03] MEDS: HumaLOG 300 UNITS/3 ML VIAL SC PRN (12:23)
[2022-06-03 16:53] VITALS: BP 143/95; TEMP 97.6
== END 2022-06-03 16:53 | DRG 595 ==
LOC: ERS 18:16 → NEURO 22:12 → OBSVTOIN 05-31 12:19
PROVIDERS: ADMIT Student in an Organized Health Care Education/Training Program; ATTEND Internal Medicine
DX: B02.9 Zoster without complications (principal); G93.41 Metabolic encephalopathy; R65.10 Systemic inflammatory response syndrome (SIRS) of non-infectious origin without acute organ dysfunction; Z20.822 Contact with and (suspected) exposure to COVID-19; E78.5 Hyperlipidemia, unspecified; E11.9 Type 2 diabetes mellitus without complications; I10 Essential (primary) hypertension; U09.9 Post COVID-19 condition, unspecified; M19.90 Unspecified osteoarthritis, unspecified site; Z91.041 Radiographic dye allergy status; Z88.1 Allergy status to other antibiotic agents; Z88.8 Allergy status to other drugs, medicaments and biological substances; Z79.52 Long term (current) use of systemic steroids; Z79.4 Long term (current) use of insulin; Z79.82 Long term (current) use of aspirin; Z79.899 Other long term (current) drug therapy; Z90.49 Acquired absence of other specified parts of digestive tract; Z90.09 Acquired absence of other part of head and neck; Z90.710 Acquired absence of both cervix and uterus; Z98.890 Other specified postprocedural states
CPT/HCPCS: 36415; 36416; 70450; 71045; 80048; 80053; 80202; 81003; 81015; 82533; 82550; 83036; 83735; 84100; 84244; 84443; 84484; 85025; 87040; 87633; 93005; 93306; 96372; 96374; 96375; G0378; J0692; J1650; J1815; J3370; J3475; J3490; J7050; J7512; U0003; U0005

== ENCOUNTER 2022-07-30 12:58 | Outpatient (CLI) | payer MEDICARE, BC | END 2022-07-30 12:59 | disposition home or self-care (01) | LOC: BICMAMMO 12:58 | PROVIDERS: ATTEND Obstetrics & Gynecology | DX: Z12.31 Encounter for screening mammogram for malignant neoplasm of breast (principal); Z98.890 Other specified postprocedural states; Z80.3 Family history of malignant neoplasm of breast | CPT/HCPCS: 77063; 77067 ==

== ENCOUNTER 2022-11-02 09:12 | Outpatient (CLI) | payer MEDICARE, BC ==
[~2022-11-02 09:12] MED LIST changes: -Iopamidol-370 76% 500 ML 1 ML ONE; +Magnevist 469MG/ML 20 ML VIAL ONE
== END 2022-11-02 09:13 | disposition home or self-care (01) ==
LOC: MRI 09:12
PROVIDERS: ATTEND Physician Assistant Medical
DX: K86.2 Cyst of pancreas (principal)
CPT/HCPCS: 74183

== ENCOUNTER 2023-07-11 13:01 | Outpatient (CLI) | payer MEDICARE, BC ==
[2023-07-11 16:10] LABS: #Basophils 0.1 10x3/uL (0.0-0.2); #Eosinphils 0.1 10x3/uL (0.0-0.5); #Monocytes 0.7 10x3/uL (0.0-1.1); #Neutrophils 9.2 10x3/uL (1.5-8.4); %Basophils 0.8 % (0.0-2.0); %Eosinophils 0.7 % (0.0-6.0); %Lymphocytes 9.1 % (18.0-47.0); %Neutrophils 82.1 % (40.0-75.0); Hemoglobin 12.7 g/dL (12.0-15.5); Mean Corpuscular HGB CONC 32.6 g/dL (32.0-36.0); Mean Corpuscular Hemoglobin 29.3 pg (27.0-33.0); Mean Corpuscular Volume 89.9 fl (81.6-98.3); Mean Platelet Volume 9.6 fl (7.4-10.4); Platelet Count 316 10x3/uL (150-450); RBC Distribution Width 17.6 % (11.5-14.5); Red Blood Cell (RBC) Count 4.34 10x6/uL (3.90-5.03); White Blood Cell (WBC) Count 11.2 10x3/uL (3.5-10.5)
[2023-07-11 16:12] LABS: Anion Gap 17 mmol/L (10-20); BUN (Urea Nitrogen) 15 mg/dL (9.8-20.1); Calc. Creatinine Clearance 0 mL/min (70-130); Carbon Dioxide 26 mmol/L (23-31); Chloride 99 mmol/L (98-107); Estimated GFR 46; Glucose 163 mg/dL (83-110); Sodium 138 mmol/L (136-145)
== END 2023-07-11 13:02 | disposition home or self-care (01) ==
LOC: LABBT 13:01
PROVIDERS: ATTEND Orthopaedic Surgery
DX: Z01.818 Encounter for other preprocedural examination (principal); M19.012 Primary osteoarthritis, left shoulder
CPT/HCPCS: 80048; 85025; 93005; 93010

== ENCOUNTER 2023-07-14 05:57 | Inpatient (IN) | payer MEDICARE, BC ==
[2023-07-14] MEDS ORDERED: Tranexamic Acid 1,000 MG/10 ML VIAL ONE (06:08)
[2023-07-14] MEDS ORDERED: Vancomycin 1 GM/200 ML (FROZEN) BAG ONE (06:08)
[2023-07-14] MEDS ORDERED: Sodium Chloride 0.9% 0 ML ONE (06:09)
[2023-07-14] MEDS ORDERED: fentaNYL PF 100 MCG/2 ML SYRINGE ONE (06:12)
[2023-07-14] MEDS ORDERED: Phenylephrine 10 MG/ML VIAL ONE (06:12)
[2023-07-14] MEDS ORDERED: Midazolam HCl 2 mg/2 ml Vial ONE (06:25)
[2023-07-14] MEDS ORDERED: fentaNYL 50 mcg/mL 1 mL Vial ONE (06:25)
[2023-07-14] MEDS ORDERED: Sodium Chloride 0.9% 100 ML ONE (06:57)
[2023-07-14] MEDS ORDERED: CEFAZOLIN 2 GM VIAL ONE (06:57)
[2023-07-14] MEDS ORDERED: traMADol HCl 50 MG TAB PO PRN ×3 (07:02→08:00)
[2023-07-14] MEDS ORDERED: HYDROcodone/Acetaminophen 10/325 mg Tablet PO PRN ×2 (07:02)
[2023-07-14] MEDS ORDERED: LevoFLOXacin 500 mg/D5W 100 ML BAG ONE (07:08)
[2023-07-14] MEDS ORDERED: Ropivacaine 0.2% HCl/PF (40 MG/20 ML VIAL) ONE (07:10)
[2023-07-14] MEDS ORDERED: Ropivacaine 0.5% HCl/PF (150 MG/30 ML VIAL) ONE (07:10)
[2023-07-14] MEDS ORDERED: ROMOSOZUMAB AQQG 105 MG/1.17 ML SQ SCH (07:15)
[2023-07-14] MEDS ORDERED: Lidocaine 1% PF 5 ML VIAL ONE (07:27)
[2023-07-14] MEDS ORDERED: Rocuronium Bromide 10 MG/ML (10ML VIAL) ONE (07:27)
[2023-07-14] MEDS ORDERED: PROPOFOL 200 MG/20 ML VIAL ONE (07:27)
[2023-07-14] MEDS ORDERED: Glycopyrrolate 0.2 MG/ML 5 ML SYRINGE ONE (07:27)
[2023-07-14] MEDS ORDERED: NEOSTIGMINE 3 MG/3 ML SYR 3 MG/3 ML SYRINGE ONE (07:27)
[2023-07-14] MEDS ORDERED: Metoclopramide HCl 10 MG/2 ML VIAL ONE (07:27)
[2023-07-14] MEDS ORDERED: Ondansetron PF 4 MG/2 ML Vial ONE (07:27)
[2023-07-14] MEDS ORDERED: HumaLOG 300 UNITS/3 ML VIAL SC SCH (07:30)
[2023-07-14] MEDS ORDERED: fentaNYL 50 mcg/mL 1 mL Vial SLOW IVP PRN (07:51)
[2023-07-14] MEDS ORDERED: Promethazine HCl 25 MG/ML VIAL IM PRN ×2 (08:00→09:15)
[2023-07-14] MEDS ORDERED: Ropivacaine 0.2% 550 ML 550 ML NERVE BLCK SCH (08:00)
[2023-07-14] MEDS ORDERED: Ondansetron PF 4 MG/2 ML Vial IVP PRN (08:00)
[2023-07-14] MEDS ORDERED: Non-Formulary Item 1 EACH (Icosapent Ethyl 1 GM Capsule) PO SCH (08:00)
[2023-07-14] MEDS ORDERED: Zolpidem Tartrate 5 MG TAB PO PRN (08:00)
[2023-07-14] MEDS ORDERED: Insulin Glargine 30 UNITS/0.3 ML VIAL SC SCH (09:00)
[2023-07-14] MEDS ORDERED: Non-Formulary Item 1 EACH (Cholecalciferol (Vitamin D3) [Vitamin D3] 50 MCG Tablet) PO SCH (09:00)
[2023-07-14] MEDS ORDERED: Non-Formulary Item 1 EACH (Vit A/Vit C/Vit E/Zinc/Copper [Preservision Areds] 1 TABLET Ta PO SCH (09:00)
[2023-07-14] MEDS ORDERED: Non-Formulary Item 1 EACH (Fluoxetine Hcl [Prozac] 40 MG Capsule) PO SCH (09:00)
[2023-07-14] MEDS ORDERED: Non-Formulary Item 1 EACH (Multivit-Min/Iron/Folic/Lutein [Centrum Silver Women] 1 TABLET PO SCH (09:00)
[2023-07-14] MEDS ORDERED: Aspirin Chewable 81 MG TAB PO SCH (09:00)
[2023-07-14] MEDS ORDERED: Amlodipine 10 MG TAB PO SCH (09:00)
[2023-07-14] MEDS ORDERED: Ondansetron HCl/PF 4 MG/2 ML Vial IVP PRN (09:15)
[2023-07-14] MEDS: Cholecalciferol 1,000 UNITS (25 MCG) TAB PO SCH (11:51)
[2023-07-14] MEDS: Aspirin Chewable 81 MG TAB PO SCH (11:51)
[2023-07-14] MEDS: Icosapent Ethyl 1 GM CAPSULE PO SCH ×2 (11:51→16:54)
[2023-07-14] MEDS: Amlodipine 10 MG TAB PO SCH (11:51)
[2023-07-14] MEDS: Lisinopril 20 MG TAB PO SCH ×2 (11:52→20:11)
[2023-07-14] MEDS: FLUoxetine HCl 20 MG CAP PO SCH (11:52)
[2023-07-14] MEDS: Multivitamin W/ Minerals 1 TAB PO SCH (11:52)
[2023-07-14] MEDS: Insulin Glargine 30 UNITS/0.3 ML VIAL SC SCH (11:52)
[2023-07-14] MEDS: Vit A,C & E/Lutein/Minerals Tablet PO SCH ×2 (11:53→20:09)
[2023-07-14] MEDS: predniSONE 1 MG TAB PO SCH (11:53)
[2023-07-14] MEDS ORDERED: WATER IVPB SCH (12:00)
[2023-07-14] MEDS ORDERED: ZOLEDRONIC ACID IVPB SCH (12:00)
[2023-07-14] MEDS ORDERED: ROMOSOZUMAB AQQG 105 MG/1.17 ML DT SCH (12:00)
[2023-07-14] MEDS ORDERED: MANNITOL IVPB SCH (12:00)
[2023-07-14] MEDS: Ketorolac Tromethamine 30 MG/ML VIAL IVP PRN (13:16)
[2023-07-14] MEDS: HYDROcodone/Acetaminophen 10/325 mg Tablet PO PRN ×2 (14:41→18:06)
[2023-07-14] MEDS: HumaLOG 300 UNITS/3 ML VIAL SC SCH (16:55)
[2023-07-14] MEDS: Rosuvastatin 10 MG TAB PO SCH (20:09)
[2023-07-14] MEDS: traMADol HCl 50 MG TAB PO PRN (20:10)
[2023-07-14] MEDS: Cyclobenzaprine 10 MG TAB PO PRN (20:10)
[2023-07-14] MEDS: Folic Acid 1 MG TAB PO SCH (20:11)
[2023-07-14] MEDS ORDERED: Alogliptin 25 MG TAB PO SCH (21:00)
[2023-07-14] MEDS ORDERED: Losartan 25 MG TAB PO SCH (21:00)
[2023-07-14] MEDS ORDERED: TELMISARTAN 80 MG PO SCH (21:00)
[2023-07-15] MEDS: Ketorolac Tromethamine 30 MG/ML VIAL IVP PRN ×2 (03:23→20:35)
[2023-07-15] MEDS ORDERED: LevoFLOXacin 500 mg/D5W 500 MG in Premix Bag 1 BAG IVPB SCH (08:00)
[2023-07-15] MEDS: Cholecalciferol 1,000 UNITS (25 MCG) TAB PO SCH (08:22)
[2023-07-15] MEDS: Lisinopril 20 MG TAB PO SCH (08:22)
[2023-07-15] MEDS: Vit A,C & E/Lutein/Minerals Tablet PO SCH ×2 (08:22→20:34)
[2023-07-15] MEDS: Aspirin Chewable 81 MG TAB PO SCH (08:23)
[2023-07-15] MEDS: Amlodipine 10 MG TAB PO SCH (08:23)
[2023-07-15] MEDS: FLUoxetine HCl 20 MG CAP PO SCH (08:23)
[2023-07-15] MEDS: Multivitamin W/ Minerals 1 TAB PO SCH (08:23)
[2023-07-15] MEDS: predniSONE 1 MG TAB PO SCH (08:23)
[2023-07-15] MEDS: Insulin Glargine 30 UNITS/0.3 ML VIAL SC SCH (08:25)
[2023-07-15] MEDS: HumaLOG 300 UNITS/3 ML VIAL SC SCH (08:25)
[2023-07-15] MEDS: Icosapent Ethyl 1 GM CAPSULE PO SCH ×2 (08:47→17:18)
[2023-07-15] MEDS ORDERED: Dextrose 50% Abboject 50 ML SYRINGE ONE (11:55)
[2023-07-15 12:02] LABS: #Basophils 0.1 thou/uL (0.0-0.2); #Eosinphils 0.3 thou/uL (0.0-0.7); #Monocytes 1.4 thou/uL (0.11-0.59); #Neutrophils 10.1 thou/uL (1.40-6.50); %Basophils 0.7 % (0.0-1.0); %Lymphocytes 12.8 % (21.0-51.0); %Monocytes 10.2 % (0.0-10.0); %Neutrophils 73.5 % (42.0-75.0); Hematocrit 35.5 % (36.0-47.0); Hemoglobin 11.5 g/dL (12.0-16.0); Mean Corpuscular HGB CONC 32.4 g/dL (32.0-36.0); Mean Corpuscular Hemoglobin 30.1 pg (27.0-31.0); Mean Corpuscular Volume 92.9 fl (78.0-98.0); Mean Platelet Volume 9.3 fL (7.4-10.4); Platelet Count 326 10x3/uL (130-400); RBC Distribution Width 17.7 % (11.5-14.5); Red Blood Cell (RBC) Count 3.82 mill/uL (4.20-5.40); White Blood Cell (WBC) Count 13.7 10x3/uL (4.8-10.8)
[2023-07-15] MEDS ORDERED: Dextrose 50% Abboject 50 ML SYRINGE SLOW IVP PRN ×2 (12:05→14:50)
[2023-07-15] MEDS ORDERED: Glucagon 1 MG/ML KIT IM PRN ×2 (12:05→14:50)
[2023-07-15] MEDS ORDERED: Dextrose 5% in Water 1,000 ML IV PRN ×2 (12:05→14:50)
[2023-07-15 12:12] LABS: Hemoglobin A1c 6.2 % (4.0-6.0)
[2023-07-15 12:24] LABS: ALT (SGPT) 19 U/L (8-55); AST (SGOT) 23 U/L (5-34); Albumin 3.9 g/dL (3.4-4.8); Alkaline Phosphatase 74 U/L (40-110); Anion Gap 13 mmol/L (10-20); BUN (Urea Nitrogen) 19 mg/dL (9.8-20.1); Bilirubin, Total 0.7 mg/dL (0.2-1.2); Calc. Creatinine Clearance 61 mL/min (70-130); Calcium 9.1 mg/dL (7.8-10.44); Carbon Dioxide 26 mmol/L (23-31); Chloride 100 mmol/L (98-107); Estimated GFR 62; Globulin 2.3 g/dL (2.4-3.5); Magnesium 1.4 mg/dL (1.6-2.6); Protein, Total 6.2 g/dL (5.8-8.1); Sodium 136 mmol/L (136-145)
[2023-07-15 12:28] LABS: Troponin I 0.016 ng/mL (< 0.028)
[2023-07-15 12:31] LABS: Glucose 54 mg/dL (83-110)
[2023-07-15] MEDS ORDERED: dilTIAZem 125 MG in Sodium Chloride 0.9% 100 ML IVPB SCH (12:45)
[2023-07-15] MEDS ORDERED: Furosemide 20 MG/2 ML VIAL SLOW IVP SCH (12:45)
[2023-07-15] MEDS ORDERED: Furosemide 40 MG/4 ML VIAL SLOW IVP SCH (12:45)
[2023-07-15] MEDS ORDERED: Ipratropium Bromide 2.5 ml Neb NEB PRN (12:52)
[2023-07-15 12:53] LABS: Actual Bicarbonate (HCO3a) 27.6 mEq/L (22-28); Base Excess (BEa) 2.6 mEq/L (-2.0 to +3.0); Calcium, Ionized (arterial) 1.14 mmol/L (1.12-1.30); Carboxyhemoglobin (COHb) 1.3 gm% (0.0-3.0); Hematocrit-ABG 36 % (36.0-47.0); Hemoglobin (Hb) 12.3 g/dL (12.0-16.0); Potassium - ABG Lab 3.34 mmol/L (3.70-5.30); pH, Arterial 7.415 (7.35-7.45)
[2023-07-15 12:54] LABS: O2 Tension (PaO2), arterial 47.7 mmHg (> 70.0); Puncture Site RRA
[2023-07-15] MEDS ORDERED: Magnesium Sulfate In Water 4 GM in Premix Bag 1 BAG IVPB SCH (13:00)
[2023-07-15] MEDS ORDERED: Ipratropium Bromide 2.5 ml Neb NEB SCH (13:00)
[2023-07-15] MEDS ORDERED: Potassium Chloride 20 MEQ TAB PO SCH (13:00)
[2023-07-15] MEDS ORDERED: Electrolyte Replacement Protocol 1 EACH FS SCH (14:15)
[2023-07-15] MEDS: Insulin Regular 300 UNITS/3 ML VIAL SC PRN ×2 (17:12→20:36)
[2023-07-15] MEDS: Carvedilol 3.125 MG TAB PO SCH (17:12)
[2023-07-15] MEDS: Ipratropium Bromide 2.5 ml Neb NEB SCH (18:59)
[2023-07-15] MEDS: Folic Acid 1 MG TAB PO SCH (20:34)
[2023-07-15] MEDS: Rosuvastatin 10 MG TAB PO SCH (20:34)
[2023-07-15] MEDS: HYDROcodone/Acetaminophen 10/325 mg Tablet PO PRN (20:39)
[2023-07-16] MEDS: Ipratropium Bromide 2.5 ml Neb NEB SCH ×4 (00:30→18:20)
[2023-07-16 03:56] LABS: #Basophils 0.1 thou/uL (0.0-0.2); #Eosinphils 0.4 thou/uL (0.0-0.7); #Monocytes 1.4 thou/uL (0.11-0.59); #Neutrophils 7.7 thou/uL (1.40-6.50); %Basophils 0.9 % (0.0-1.0); %Eosinophils 3.3 % (0.0-10.0); %Lymphocytes 15.9 % (21.0-51.0); %Monocytes 11.8 % (0.0-10.0); %Neutrophils 66.5 % (42.0-75.0); Hematocrit 33.2 % (36.0-47.0); Hemoglobin 10.6 g/dL (12.0-16.0); Mean Corpuscular HGB CONC 31.9 g/dL (32.0-36.0); Mean Platelet Volume 9.5 fL (7.4-10.4); Platelet Count 272 10x3/uL (130-400); RBC Distribution Width 17.5 % (11.5-14.5); Red Blood Cell (RBC) Count 3.65 mill/uL (4.20-5.40); White Blood Cell (WBC) Count 11.6 10x3/uL (4.8-10.8)
[2023-07-16 04:20] LABS: Anion Gap 13 mmol/L (10-20); BUN (Urea Nitrogen) 21 mg/dL (9.8-20.1); Calc. Creatinine Clearance 53 mL/min (70-130); Calcium 8.5 mg/dL (7.8-10.44); Carbon Dioxide 29 mmol/L (23-31); Chloride 99 mmol/L (98-107); Estimated GFR 53; Glucose 84 mg/dL (83-110); Magnesium 2.4 mg/dL (1.6-2.6); Potassium 3.6 mmol/L (3.5-5.1); Sodium 137 mmol/L (136-145)
[2023-07-16] MEDS: HYDROcodone/Acetaminophen 10/325 mg Tablet PO PRN ×3 (08:13→22:52)
[2023-07-16] MEDS: Icosapent Ethyl 1 GM CAPSULE PO SCH ×2 (08:15→16:27)
[2023-07-16] MEDS: Aspirin Chewable 81 MG TAB PO SCH (08:15)
[2023-07-16] MEDS: Multivitamin W/ Minerals 1 TAB PO SCH (08:16)
[2023-07-16] MEDS: Vit A,C & E/Lutein/Minerals Tablet PO SCH ×2 (08:16→22:51)
[2023-07-16] MEDS: predniSONE 1 MG TAB PO SCH (08:16)
[2023-07-16] MEDS: FLUoxetine HCl 20 MG CAP PO SCH (08:17)
[2023-07-16] MEDS: Cholecalciferol 1,000 UNITS (25 MCG) TAB PO SCH (08:17)
[2023-07-16] MEDS: Carvedilol 3.125 MG TAB PO SCH ×2 (08:17→16:28)
[2023-07-16] MEDS: Insulin Regular 300 UNITS/3 ML VIAL SC PRN ×2 (12:08→17:19)
[2023-07-16] MEDS: Folic Acid 1 MG TAB PO SCH (22:52)
[2023-07-16] MEDS: Rosuvastatin 10 MG TAB PO SCH (22:53)
[2023-07-17] MEDS: Ipratropium Bromide 2.5 ml Neb NEB SCH ×4 (00:48→18:44)
[2023-07-17] MEDS: Carvedilol 3.125 MG TAB PO SCH ×2 (10:58→11:51)
[2023-07-17] MEDS: Icosapent Ethyl 1 GM CAPSULE PO SCH ×2 (10:58→17:44)
[2023-07-17] MEDS: Cholecalciferol 1,000 UNITS (25 MCG) TAB PO SCH (11:51)
[2023-07-17] MEDS: Aspirin Chewable 81 MG TAB PO SCH (11:51)
[2023-07-17] MEDS: Vit A,C & E/Lutein/Minerals Tablet PO SCH ×2 (11:51→20:27)
[2023-07-17] MEDS: Multivitamin W/ Minerals 1 TAB PO SCH (11:52)
[2023-07-17] MEDS: FLUoxetine HCl 20 MG CAP PO SCH (11:52)
[2023-07-17] MEDS: predniSONE 1 MG TAB PO SCH (11:52)
[2023-07-17] MEDS: traMADol HCl 50 MG TAB PO PRN (14:53)
[2023-07-17] MEDS: HYDROcodone/Acetaminophen 10/325 mg Tablet PO PRN (15:54)
[2023-07-17] MEDS: CEFAZOLIN 2 GM in Sodium Chloride 0.9% 100 ML IVPB SCH (15:55)
[2023-07-17] MEDS: Insulin Regular 300 UNITS/3 ML VIAL SC PRN ×2 (17:44→21:25)
[2023-07-17] MEDS: Cyclobenzaprine 10 MG TAB PO PRN (17:44)
[2023-07-17] MEDS: Folic Acid 1 MG TAB PO SCH (20:27)
[2023-07-17] MEDS: Rosuvastatin 10 MG TAB PO SCH (20:27)
[2023-07-18] MEDS: Ipratropium Bromide 2.5 ml Neb NEB SCH ×4 (00:20→19:13)
[2023-07-18] MEDS: traMADol HCl 50 MG TAB PO PRN (00:34)
[2023-07-18] MEDS: Cyclobenzaprine 10 MG TAB PO PRN (00:35)
[2023-07-18] MEDS: CEFAZOLIN 2 GM in Sodium Chloride 0.9% 100 ML IVPB SCH ×4 (00:35→23:33)
[2023-07-18] MEDS: Multivitamin W/ Minerals 1 TAB PO SCH (09:13)
[2023-07-18] MEDS: Cholecalciferol 1,000 UNITS (25 MCG) TAB PO SCH (09:13)
[2023-07-18] MEDS: Vit A,C & E/Lutein/Minerals Tablet PO SCH ×2 (09:13→20:43)
[2023-07-18] MEDS: FLUoxetine HCl 20 MG CAP PO SCH (09:13)
[2023-07-18] MEDS: predniSONE 1 MG TAB PO SCH (09:14)
[2023-07-18] MEDS: Carvedilol 3.125 MG TAB PO SCH ×2 (09:14→17:25)
[2023-07-18] MEDS: Aspirin Chewable 81 MG TAB PO SCH (09:14)
[2023-07-18] MEDS: HYDROcodone/Acetaminophen 10/325 mg Tablet PO PRN ×3 (09:14→18:18)
[2023-07-18] MEDS: Icosapent Ethyl 1 GM CAPSULE PO SCH ×2 (10:30→19:27)
[2023-07-18] MEDS ORDERED: Polyethylene Glycol 3350 17 GM Packet PO SCH (10:45)
[2023-07-18] MEDS ORDERED: Senokot 8.6 MG TAB PO SCH (10:45)
[2023-07-18] MEDS: Insulin Regular 300 UNITS/3 ML VIAL SC PRN ×2 (13:01→18:19)
[2023-07-18] MEDS: Folic Acid 1 MG TAB PO SCH (20:44)
[2023-07-18] MEDS: Senokot 8.6 MG TAB PO SCH (20:44)
[2023-07-18] MEDS: Rosuvastatin 10 MG TAB PO SCH (20:44)
[2023-07-19] MEDS: Ipratropium Bromide 2.5 ml Neb NEB SCH ×5 (02:00→23:44)
[2023-07-19] MEDS ORDERED: Furosemide 40 MG/4 ML VIAL SLOW IVP SCH (07:45)
[2023-07-19 08:05] LABS: Hemoglobin 10.7 g/dL (12.0-16.0); Mean Corpuscular HGB CONC 32.4 g/dL (32.0-36.0); Mean Corpuscular Hemoglobin 29.9 pg (27.0-31.0); Mean Corpuscular Volume 92.2 fl (78.0-98.0); Mean Platelet Volume 9.2 fL (7.4-10.4); Platelet Count 342 10x3/uL (130-400); RBC Distribution Width 16.8 % (11.5-14.5); Red Blood Cell (RBC) Count 3.58 mill/uL (4.20-5.40); White Blood Cell (WBC) Count 9.1 10x3/uL (4.8-10.8)
[2023-07-19] MEDS: Icosapent Ethyl 1 GM CAPSULE PO SCH ×2 (08:17→16:57)
[2023-07-19] MEDS: Polyethylene Glycol 3350 17 GM Packet PO SCH (08:18)
[2023-07-19] MEDS: Senokot 8.6 MG TAB PO SCH ×2 (08:18→20:12)
[2023-07-19] MEDS: Cholecalciferol 1,000 UNITS (25 MCG) TAB PO SCH (08:18)
[2023-07-19] MEDS: predniSONE 1 MG TAB PO SCH (08:18)
[2023-07-19] MEDS: Aspirin Chewable 81 MG TAB PO SCH (08:19)
[2023-07-19] MEDS: Empagliflozin 10 MG TAB PO SCH (08:19)
[2023-07-19] MEDS: Vit A,C & E/Lutein/Minerals Tablet PO SCH ×2 (08:19→20:12)
[2023-07-19] MEDS: FLUoxetine HCl 20 MG CAP PO SCH (08:19)
[2023-07-19] MEDS: Multivitamin W/ Minerals 1 TAB PO SCH (08:19)
[2023-07-19 08:29] LABS: Anion Gap 12 mmol/L (10-20); BUN (Urea Nitrogen) 14 mg/dL (9.8-20.1); Calc. Creatinine Clearance 68 mL/min (70-130); Calcium 9.1 mg/dL (7.8-10.44); Carbon Dioxide 29 mmol/L (23-31); Chloride 100 mmol/L (98-107); Estimated GFR 61; Glucose 154 mg/dL (83-110); Potassium 3.8 mmol/L (3.5-5.1); Sodium 137 mmol/L (136-145)
[2023-07-19] MEDS: HYDROcodone/Acetaminophen 10/325 mg Tablet PO PRN (08:36)
[2023-07-19] MEDS: CEFAZOLIN 2 GM in Sodium Chloride 0.9% 100 ML IVPB SCH (08:38)
[2023-07-19] MEDS: Clindamycin 150 MG CAP PO SCH ×2 (13:53→20:12)
[2023-07-19] MEDS: Insulin Regular 300 UNITS/3 ML VIAL SC PRN ×2 (13:53→16:57)
[2023-07-19] MEDS: Folic Acid 1 MG TAB PO SCH (20:12)
[2023-07-19] MEDS: Rosuvastatin 10 MG TAB PO SCH (20:12)
[2023-07-20 00:33] VITALS: BMI 35.1
[2023-07-20] MEDS: Clindamycin 150 MG CAP PO SCH ×3 (05:58→20:11)
[2023-07-20] MEDS: Ipratropium Bromide 2.5 ml Neb NEB SCH ×3 (08:11→19:42)
[2023-07-20] MEDS ORDERED: diphenhydrAMINE 30 GM TUBE TOP PRN (08:19)
[2023-07-20] MEDS: HYDROcodone/Acetaminophen 10/325 mg Tablet PO PRN ×2 (09:25→20:12)
[2023-07-20] MEDS: Icosapent Ethyl 1 GM CAPSULE PO SCH ×2 (09:26→18:16)
[2023-07-20] MEDS: Multivitamin W/ Minerals 1 TAB PO SCH (09:27)
[2023-07-20] MEDS: Vit A,C & E/Lutein/Minerals Tablet PO SCH ×2 (09:27→20:11)
[2023-07-20] MEDS: Empagliflozin 10 MG TAB PO SCH (09:27)
[2023-07-20] MEDS: Cholecalciferol 1,000 UNITS (25 MCG) TAB PO SCH (09:27)
[2023-07-20] MEDS: Polyethylene Glycol 3350 17 GM Packet PO SCH (09:27)
[2023-07-20] MEDS: Senokot 8.6 MG TAB PO SCH ×2 (09:27→20:20)
[2023-07-20] MEDS: Aspirin Chewable 81 MG TAB PO SCH (09:28)
[2023-07-20] MEDS: FLUoxetine HCl 20 MG CAP PO SCH (09:28)
[2023-07-20] MEDS: predniSONE 1 MG TAB PO SCH (09:28)
[2023-07-20] MEDS: Hydrocortisone 1% Cream 30 GM TUBE TOP SCH ×2 (14:45→20:20)
[2023-07-20] MEDS: Insulin Regular 300 UNITS/3 ML VIAL SC PRN (18:17)
[2023-07-20] MEDS: Rosuvastatin 10 MG TAB PO SCH (20:11)
[2023-07-20] MEDS: Folic Acid 1 MG TAB PO SCH (20:11)
[2023-07-21] MEDS: Ipratropium Bromide 2.5 ml Neb NEB SCH ×2 (00:55→08:16)
[2023-07-21] MEDS: Clindamycin 150 MG CAP PO SCH ×2 (05:18→14:19)
[2023-07-21] MEDS: HYDROcodone/Acetaminophen 10/325 mg Tablet PO PRN ×2 (09:57→14:19)
[2023-07-21] MEDS: Polyethylene Glycol 3350 17 GM Packet PO SCH (09:59)
[2023-07-21] MEDS: Cholecalciferol 1,000 UNITS (25 MCG) TAB PO SCH (09:59)
[2023-07-21] MEDS: Icosapent Ethyl 1 GM CAPSULE PO SCH (10:00)
[2023-07-21] MEDS: FLUoxetine HCl 20 MG CAP PO SCH (10:00)
[2023-07-21] MEDS: Senokot 8.6 MG TAB PO SCH (10:00)
[2023-07-21] MEDS: Multivitamin W/ Minerals 1 TAB PO SCH (10:01)
[2023-07-21] MEDS: predniSONE 1 MG TAB PO SCH (10:01)
[2023-07-21] MEDS: Vit A,C & E/Lutein/Minerals Tablet PO SCH (10:01)
[2023-07-21] MEDS: Aspirin Chewable 81 MG TAB PO SCH (10:02)
[2023-07-21] MEDS: Empagliflozin 10 MG TAB PO SCH (10:02)
[2023-07-21] MEDS: Hydrocortisone 1% Cream 30 GM TUBE TOP SCH (10:03)
[2023-07-21 11:35] VITALS: BP 145/75; TEMP 98.6
[2023-07-21] MEDS: Insulin Regular 300 UNITS/3 ML VIAL SC PRN (11:51)
== END 2023-07-21 16:00 | disposition home or self-care (01) | DRG 483 ==
LOC: SDC 05:57 → SJJU 07:08 → IMCU/EMU 07-15 14:49 → OBSVTOIN 07-15 15:42 → SURG A 07-17 17:21
PROVIDERS: ADMIT Orthopaedic Surgery; ATTEND Orthopaedic Surgery
PROC: 0RRK00Z Replacement of Left Shoulder Joint with Reverse Ball and Socket Synthetic Substitute, Open Approach (ICD-10-PCS; principal; 2023-07-14)
PROC: 4A033R1 Measurement of Arterial Saturation, Peripheral, Percutaneous Approach (ICD-10-PCS; 2023-07-15)
DX: M19.012 Primary osteoarthritis, left shoulder (principal); J96.01 Acute respiratory failure with hypoxia; I97.89 Other postprocedural complications and disorders of the circulatory system, not elsewhere classified; I50.32 Chronic diastolic (congestive) heart failure; E27.40 Unspecified adrenocortical insufficiency; L40.50 Arthropathic psoriasis, unspecified; I11.0 Hypertensive heart disease with heart failure; I48.91 Unspecified atrial fibrillation; E87.6 Hypokalemia; E83.42 Hypomagnesemia; I34.1 Nonrheumatic mitral (valve) prolapse; G47.33 Obstructive sleep apnea (adult) (pediatric); E11.649 Type 2 diabetes mellitus with hypoglycemia without coma; E66.01 Morbid (severe) obesity due to excess calories; Z96.643 Presence of artificial hip joint, bilateral; Z96.652 Presence of left artificial knee joint; E78.5 Hyperlipidemia, unspecified; Z68.35 Body mass index [BMI] 35.0-35.9, adult; Z79.4 Long term (current) use of insulin; Z79.899 Other long term (current) drug therapy; Z98.1 Arthrodesis status; Z87.81 Personal history of (healed) traumatic fracture; Z90.710 Acquired absence of both cervix and uterus; Z90.49 Acquired absence of other specified parts of digestive tract; Z90.89 Acquired absence of other organs; Z98.890 Other specified postprocedural states; Z83.3 Family history of diabetes mellitus
CPT/HCPCS: 36415; 36416; 36600; 71045; 71046; 80048; 80053; 82805; 83036; 83735; 83880; 84443; 84484; 85025; 85027; 93005; 93010; 93306; 94640; A4306; C1713; C1776; J1650; J1815; J1885; J1940; J1956; J2250; J2370; J2405; J2704; J2765; J2795; J3010; J3370-JW; J3475; J3490; J7512; J7999